=== PATIENT | female | born 1950 | race Caucasian/White ===

== ENCOUNTER → 2024-02-03 07:25 | Outpatient (ROUT) | payer MEDICARE, SELFPAY ==
[2024-02-03 08:47] LABS: Estimated Glomerular Filt Rate > 60 mL/min (>60)
== END ==
PROVIDERS: PCP Nurse Practitioner Family; Visit Provider Nurse Practitioner Family
DX: Z51.81 Encounter for therapeutic drug level monitoring (principal)
CPT/HCPCS: 36415; 82565

== ENCOUNTER → 2024-02-04 10:09 | Outpatient (CLI) | payer MEDICARE, MEDICAID, SELFPAY ==
--- NOTE | 2024-02-04 | DI.CT.S_ITS ---
PROCEDURE: CT ABDOMEN PELVIS W CON INDICATIONS: Melena, constipation TECHNIQUE: After the administration of intravenous contrast, axial sections acquired from the lung bases to the pubic symphysis. Coronal and sagittal reformats were performed. For radiation dose reduction, the following was used: automated exposure control, adjustment of mA and/or kV according to patient size. COMPARISON: [facility], CT, CT ABDOMEN PELVIS WITH CONTRAST, 12/23/2020, 14:52. FINDINGS: Image quality: Diagnostic. Lower Chest: Mild dependent atelectasis. Lipomatous hypertrophy of the intra-atrial septum. ABDOMEN: Liver: No solid mass. Gallbladder: Surgically absent. Biliary ducts: No biliary dilation. Pancreas: No ductal dilation. Spleen: Size is within normal limits. Splenule is noted. Adrenal Glands: No adrenal nodules. Kidneys and Ureters: No hydronephrosis. No solid mass. No complex renal cystic lesion which requires follow up. Stomach and Bowel: Normal colonic caliber, without significant wall thickening. Moderate burden of stool throughout the colon. Normal appendix. Peritoneum: No abnormal intraperitoneal fluid. No free air. Ventral Wall: Small fat containing umbilical hernia. Abdominal Nodes: No retroperitoneal or mesenteric adenopathy by size criteria. Vessels: Aorta and inferior vena cava are normal in size. Atherosclerotic vascular calcifications. PELVIS: Pelvic Organs: Unremarkable. Bladder: No bladder wall thickening, accounting for underdistention. Pelvic Nodes: No enlarged lymph nodes. Miscellaneous: No inguinal hernias are seen. Bones: No aggressive osseous abnormality. Degenerative changes of the spine. Diffusely decreased osseous mineralization. IMPRESSION: 1. No acute findings within the abdomen or pelvis to explain patient's symptoms. 2. Moderate burden of stool throughout the colon, correlate for constipation. Dictated by: Riley John M.D. on 02/04/2024 at 11:49 Approved by: Riley John M.D. on 02/04/2024 at 11:53
== END ==
PROVIDERS: PCP Nurse Practitioner Family; Referring Provider Nurse Practitioner Family; Visit Provider Nurse Practitioner Family
DX: K92.1 Melena (principal); K59.00 Constipation, unspecified; K42.9 Umbilical hernia without obstruction or gangrene; Z90.49 Acquired absence of other specified parts of digestive tract
CPT/HCPCS: 74177; Q9967

== ENCOUNTER 2024-03-01 08:14 | Day surgery (SDC) | payer MEDICARE, MEDICAID, SELFPAY ==
[2024-03-01] VITALS (11 sets, daily range): BP systolic 99–126; BP diastolic 52–83; PULSE 71–98; RESP 13–20; TEMP 36.2–36.6; O2SAT 88–95
--- NOTE | 2024-03-01 | PATH_ITS ---
[facility] Accession Number: [id number] No. of containers..02 Tissue . 01 Material submitted: . PART A: gastrointestinal site - ANTRUM PART B: esophagus, E-G Junction - GE JUNCTION . 01 Diagnosis: A. STOMACH, ANTRUM, BIOPSY: Gastric antral-type mucosa with reactive gastropathy. No evidence of intestinal metaplasia or dysplasia. Negative for Helicobacter pylori organisms on H/E. . B. GASTROESOPHAGEAL JUNCTION, BIOPSY: Gastric-transitional and fundic-type mucosa with green, refractile, non-polarizable material consistent with iron-pill fragments. Background with mild acute and chronic inflammation. Negative for intestinal metaplasia and dysplasia. Negative for Helicobacter pylori organisms on immunohistochemistry. No fragments of squamous mucosa present for evaluation. MRV 03/10/2024 1410 Local . 01 Electronically signed: . Coreen Sandoval MD, Pathologist NPI- [id number] . 01 Gross description: . Part A: ANTRUM: Received in formalin are 2 fragment(s) of coburn, soft tissue measuring 0.2 x 0.2 x 0.1 cm to 0.3 x 0.2 x 0.2 cm submitted entirely in 1 cassette(s) Part B: GE JUNCTION: Received in formalin are 3 fragment(s) of coburn, soft tissue measuring 0.2 x 0.2 x 0.2 cm to 0.3 x 0.3 x 0.3 cm submitted entirely in 1 cassette(s) /DEBORAH 03/04/2024 0142 Local . 01 Microscopic: . Iron stain, AB/PAS, Helicobacter pylori immunohistochemical studies are performed on block B, in order to evaluate areas of interest. There is diffuse positivity for iron, and no evidence of AB/PAS immunoreactivity or Helicobacter pylori immunoreactivity, in support of the diagnosis. . * This test was developed and its performance characteristics determined by [facility]. It has not been cleared or approved by the U.S. Food and Drug Administration. The FDA has determined that such clearance or approval is not necessary. This test is used for clinical purposes. It should not be regarded as investigational or for research. . 01 Pathologist provided ICD-10: K29.60 . 01 CPT . 104059, 235782, [id number], 076190, 545310 Specimen Comment: A courtesy copy of this report has been sent to [phone] Performed at: 01 [facility] [address] [place] [address], [place], [place] [id number] MD Ulisses Tran MD Phone: [phone]
--- NOTE | 2024-03-01 09:09 | P.OP.PRE_ITS ---
Pre-operative Note COVID-19 COVID-19 status: Not tested Interval Note History & Physical reviewed/Exam performed by Physician: Yes Changes to H&P: Yes H&P completed within 30 days and has changed as indicated here:: The patient c ontinues to have solid stool output so we will cancel the colonoscopy portion of the procedure today ASA Class (for procedural sedation): III
[2024-03-01] MEDS: FLEETS ENEMA 1 EACH PR (09:25)
--- NOTE | 2024-03-01 09:39 | SUR.OPER ---
colonoscopy cancelled due to incomplete prep
--- NOTE | 2024-03-01 09:48 | PM.OP.EGD ---
Operative Date/Time/Diagnoses Date of procedure: 03/01/24 Time of procedure: 09:48 Pre-op diagnosis: Melena Post-op diagnosis: same Procedure & Clinicians Study performed: Esophagogastroduodenoscopy Same procedure as scheduled: No (The colonoscopy was canceled because the patient had solid stool) Surgeon: Polo Dunahm Procedure Notes Procedure in detail: Surgeon: Polo Dunham MD Anesthesia: Genaro Griffiths DO A timeout was performed. A bite blocked was placed. The patient was positioned in the left lateral decubitus position. Anesthesia was administered. The endoscope was inserted through the bite block and passed through the esophagus and stomach and into the duodenum. The duodenal mucosa appeared normal. The scope was withdrawn into the duodenal bulb and no abnormalities were noted. The scope was withdrawn into the stomach. There was residual debris stomach suggesting slow transit time. There was some moderate antritis and distal gastritis and random biopsies were taken from the antrum with cold forceps. The scope was retroflexed and no significant hiatal hernia was noted. The scope was withdrawn into the esophagus and there was some inflamed tissue at the GE junction and biopsies were taken cold forceps. The remainder of the esophagus was normal. The scope was withdrawn. The patient was awakened and brought to recovery. Sedation time: 10 minutes Findings: Antritis, distal gastritis and inflamed abnormal tissue near the GE junction Post-procedure Disposition: PACU
[2024-03-01] MEDS: ALBUTEROL 2.5 MG/3 ML NEB (ADULT) INH (10:09)
[2024-03-01] MEDS: ONDANSETRON 4 MG/2 ML INJ IV (10:12)
--- NOTE | 2024-03-01 10:14 | SUR.PHASEI ---
Patient reported nausea and trouble breathing. O2 sats upper 80s to low 90s on RA. Lungs diminished. Dr. Griffiths notified and meds ordered and given.
--- NOTE | 2024-03-01 10:19 | SUR.PHASEI ---
Patient reported nausea improved but breathing has not.
--- NOTE | 2024-03-01 10:44 | SUR.PHASEI ---
Discussed patient status with Dr. Griffiths. Patient may transfer to phase II with continued monitoring.
--- NOTE | 2024-03-01 11:08 | SUR.PHASEII ---
Called report to her nurse Yola at [facility]. She states she understood. I also informed nurse that her colonoscopy was not performed due to pt still having stool.
[2024-03-01] MEDS: LACTATED RINGERS 1,000 ML 42 ML IV (11:10)
== END 2024-03-01 11:45 | disposition home or self-care (01) ==
PROVIDERS: PCP Nurse Practitioner Family; Referring Provider Surgery; Visit Provider Surgery
PROC: 0DJ08ZZ Inspection of Upper Intestinal Tract, Via Natural or Artificial Opening Endoscopic (ICD-10-PCS; CPT 43235; principal; 2024-03-01 09:30)
PROC: 0DJD8ZZ Inspection of Lower Intestinal Tract, Via Natural or Artificial Opening Endoscopic (ICD-10-PCS; CPT 45378; 2024-03-01 09:30)
DX: K92.1 Melena (principal); K29.50 Unspecified chronic gastritis without bleeding; K31.9 Disease of stomach and duodenum, unspecified
CPT/HCPCS: 43239; J2405; J2704; J7613

== ENCOUNTER 2024-03-21 15:05 | Emergency (ER) | payer MEDICARE, MEDICAID, SELFPAY ==
[2024-03-21] VITALS (13 sets, daily range): BP systolic 102–136; BP diastolic 55–84; PULSE 83–93; RESP 9–36; TEMP 36.6; O2SAT 93–97; BMI 35.4
--- NOTE | 2024-03-21 15:10 | DI.CT.S_ITS ---
PROCEDURE: CT HEAD/BRAIN WO CON INDICATIONS: fall hit head TECHNIQUE: Noncontrast 4.5 mm thick angled axial sections acquired from the foramen magnum to the vertex, with coronal and sagittal reformats. For radiation dose reduction, the following was used: automated exposure control, adjustment of mA and/or kV according to patient size. COMPARISON: None. FINDINGS: Image quality: Diagnostic. CSF spaces: Basal cisterns are patent. No extra-axial fluid collections. Ventricles are normal in size and shape. Brain: Mild parenchymal volume loss. No midline shift. No intracranial masses or hemorrhage. Collins-white matter interface is normal. Skull and face: Calvarium and visualized facial bones are intact, without suspicious lesions. Sinuses: Visualized sinuses and mastoids are clear. IMPRESSION: No acute intracranial pathology. Dictated by: Jason Croft M.D. on 03/21/2024 at 15:09 Approved by: Jason Croft M.D. on 03/21/2024 at 15:10
--- NOTE | 2024-03-21 15:12 | DI.CT.S_ITS ---
PROCEDURE: CT CERVICAL SPINE WO CON INDICATIONS: fall TECHNIQUE: Noncontrast 3 mm thick sections acquired from the skull base to the T4 level. Sagittal and coronal reformats were then constructed. For radiation dose reduction, the following was used: automated exposure control, adjustment of mA and/or kV according to patient size. COMPARISON: None. FINDINGS: Image quality: Excellent. Bones: No fractures or dislocations. Visualized superior ribs are intact. Soft tissues: Prevertebral soft tissues are normal in thickness. No paravertebral hematomas. No apical pneumothoraces. IMPRESSION: No displaced fracture or traumatic subluxation. Dictated by: Jason Croft M.D. on 03/21/2024 at 15:10 Approved by: Jason Croft M.D. on 03/21/2024 at 15:12
--- NOTE | 2024-03-21 15:16 | DI.RAD.S_ITS ---
PROCEDURE: XR CHEST 1V INDICATIONS: chest pain TECHNIQUE: One view of the chest was acquired. COMPARISON: [facility], , CHEST 2 VIEW, 04/14/2013, 13:21. FINDINGS: Surgical changes and devices: None. Lungs and pleura: Lungs are clear. No pleural effusions or pneumothorax. Mediastinum: Mediastinal contours appear normal. Heart size is normal. Bones and chest wall: No suspicious bony lesions. Overlying soft tissues appear unremarkable. IMPRESSION: No acute cardiopulmonary abnormality is seen. Dictated by: Jason Croft M.D. on 03/21/2024 at 14:59 Approved by: Jason Croft M.D. on 03/21/2024 at 15:00
[2024-03-21 15:59] LABS: INR 0.9 (0.9-1.3); Prothrombin Time 10.1 SECONDS (9.4-12.5)
[2024-03-21 16:00] LABS: Add Manual Diff / Slide Review NO; Basophils Absolute Auto 100 /uL (0-100); Basophils Percent Auto 0.4 % (0-2); Eosinophils Absolute Auto 200 /uL (0-450); Eosinophils Percent Auto 1.3 % (2-4); Hematocrit 43.1 % (36-46); Hemoglobin 14.3 g/dL (12.0-16.0); Lymphocytes Absolute Auto 1900 /uL (1100-4500); Lymphocytes Percent Auto 15.4 % (25-40); Mean Corpuscular HGB Conc 33.3 % (30-36); Mean Corpuscular Hemoglobin 33.9 PG (26-34); Mean Corpuscular Volume 101.9 fL (80-100); Monocytes Absolute Auto 800 /uL (0-900); Monocytes Percent Auto 6.9 % (3-14); Neutrophils Absolute Auto 9300 /uL (1500-7000); Platelet Count 263 X10^3/uL (150-400); Red Blood Cell Count 4.23 X10^6/uL (4.0-5.2); Red Cell Distribution Width 14.7 % (11.6-14.8); White Blood Cell Count 12.2 X10^3/uL (4.5-11.0)
[2024-03-21 16:01] LABS: PTT Partial Thromboplastin Tim 32 SECONDS (25.1-36.5)
[2024-03-21 16:02] LABS: Alanine Aminotransferase 22 IU/L (<35); Albumin 4.5 g/dL (3.5-5.0); Albumin Globulin Ratio 1.6 (1.0-2.8); Alkaline Phosphatase 82 U/L (38-126); Aspartate Aminotransferase 30 IU/L (14-36); BUN Creatinine Ratio 19.7 (6-22); Bilirubin Total 0.5 mg/dL (0.2-1.3); Blood Urea Nitrogen 14 mg/dL (7-17); Calcium 9.1 mg/dL (8.4-10.2); Carbon Dioxide 28 mmol/L (22-32); Chloride 104 mmol/L (98-107); Creatine Kinase 63 U/L (30-135); Estimated Glomerular Filt Rate > 60 mL/min (>60); Globulin 2.8 g/dL (1.7-4.1); Glucose 111 mg/dL (80-110); HEMOLYSIS 32 (0-50); Lipase 108 U/L (23-300); Potassium 3.9 mmol/L (3.4-5.1); Sodium 137 mmol/L (137-145); Total Protein 7.3 g/dL (6.3-8.2)
[2024-03-21 16:14] LABS: Troponin I < 0.012 ng/mL (0.01-0.034)
--- NOTE | 2024-03-21 16:46 | ED_ITS ---
HPI - Fall General Chief Complaint: Fall Stated Complaint: Fall Time Seen by Provider: 03/21/24 15:51 Source: EMS Mode of arrival: EMS History of Present Illness HPI Narrative: Patient is a 74-year-old female, history of asthma chronic knee problems, ambulates by walker at all times presents today with ground level fall. She reports that she has not been feeling well for about the last 3 days. She has had a cough no significant fever but today she really did not feel well. She tripped and fell. She reports that she felt a little bit dizzy in the next thing she knew she was on the ground. She did hit her head. She arrived by ambulance in a C-collar. None anticoagulation or antiplatelet medication. She denies any other injury. She does report history of some pneumonia. She feels like she might have that again she does have this cough she has had a cough for some time. Related Data Home Medications Medication Instructions Recorded Confirmed albuterol sulfate 90 mcg/actuation 0.09 mg IH BID ##0 01/15/12 03/01/24 aerosol inhaler (Proventil HFA) fluticasone propionate 220 1 puff INH Q DAY ##12 08/14/12 03/01/24 mcg/actuation HFA aerosol inhaler (Flovent HFA) azelastine 137 mcg (0.1 %) nasal 1 spray intranasal BID 02/11/24 03/01/24 spray aerosol colesevelam 625 mg tablet 625 mg PO BID 02/11/24 03/01/24 cyclobenzaprine 10 mg tablet 10 mg PO BID 02/11/24 03/01/24 duloxetine 60 mg capsule,delayed 60 mg PO BID 02/11/24 03/01/24 release hydrocodone 5 mg-acetaminophen 325 1 tab PO TID 02/11/24 03/01/24 mg tablet lubiprostone 24 mcg capsule 24 mcg PO DAILY 02/11/24 03/01/24 (Amitiza) montelukast 10 mg tablet 10 mg PO DAILY 02/11/24 03/01/24 Previous Rx's Medication Instructions Recorded clonazepam 0.5 mg tablet (Klonopin) 0.5 mg PO Q6HP #90 tabs 10/22/16 trazodone 100 mg tablet 100 - 200 mg (1 - 2 x 100 mg) PO 01/15/17 HS #30 tabs peg 3350-electrolytes 236 240 ml PO Q10M #4,000 mL 02/13/24 gram-22.74 gram-6.74 gram-5.86 gram solution (Golytely) Allergies Allergy/AdvReac Type Severity Reaction Status Date / Time imipramine [IMIPRAMINE] Allergy Severe throat Verified 03/01/24 09:09 swelling influenza virus vaccine, Allergy Severe arm and Verified 03/01/24 09:09 specific body [INFLUENZA VIRUS swelling VACC,SPECIFIC] pneumococcal vaccine Allergy Severe body Verified 03/01/24 09:09 [PNEUMOCOCCAL VACCINE] swelling eucalyptus [EUCALYPTUS] Allergy Mild Verified 03/01/24 09:09 oxycodone [OXYCODONE] AdvReac Severe panic Verified 03/01/24 09:09 feeling rasagiline [From AZILECT] AdvReac Severe suicidal Verified 03/01/24 09:09 carbidopa [CARBIDOPA] AdvReac Mild nausea & Verified 03/01/24 09:09 vomiting Sulfa (Sulfonamide AdvReac Mild n/v Verified 03/01/24 09:09 Antibiotics) [SULFA (SULFONAMIDE ANTIBIOTICS)] sulfacetamide [SULFACETAMIDE] AdvReac Mild n/v Verified 03/01/24 09:09 TOMATOES Allergy Mild N/V Uncoded 03/01/24 09:09 TORFANIL Allergy Unknown PER PT Uncoded 03/01/24 09:09 Patient History Social History Smoking Status: Current every day smoker alcohol intake: former Smoking Status: Current every day smoker Substance Use Type: does not use Exam Initial Vital Signs Initial Vital Signs: Vital Signs Temperature 97.8 F 03/21/24 15:21 Pulse Rate 91 H 03/21/24 15:21 Respiratory Rate 16 03/21/24 15:21 Blood Pressure 102/55 L 03/21/24 15:21 Pulse Oximetry 95 03/21/24 15:21 Oxygen Delivery Method Room Air 03/21/24 15:21 GENERAL: Alert pleasant elderly female no acute distress HEENT: Head atraumatic,EOMI, pupils reactive, face symmetric, moist mucous membranes NECK: C-collar in place CARDIOVASCULAR: Regular rate and rhythm without murmurs, rubs or gallops. RESPIRATORY: Breath sounds equal bilaterally, no wheezes rales or rhonchi. Nonproductive cough present but no obvious respiratory distress ABDOMEN: Soft, nontender. Normoactive bowel sounds all 4 quadrants. No guarding or rebound. EXTREMITIES: Normal range of motion, no clubbing or edema. Neurovascularly intact. Pelvis stable able to lift each leg NEUROLOGICAL: Alert and oriented x4. Pipe Organ Builder strength equal SKIN: Warm, dry, no laceration, no petechiae, no rashes or lesions. Course Orders Ordered: ED Orders 03/21/24 15:10 CT head/brain wo con Stat 03/21/24 15:12 CT cervical spine wo con Stat 03/21/24 15:16 XR chest 1V Stat EKG-12 Lead Stat 03/21/24 15:35 Complete Blood Count AUTO DIFF Stat Comprehensive Metabolic Panel Stat Lipase Stat Magnesium Stat PTT Partial Thromboplastin Lopez Stat Prothrombin Time INR Stat Troponin & CK Cardiac Panel Stat 03/21/24 15:58 Respiratory Panel (Film Array) Stat 03/21/24 18:13 UA Complete [Urinalysis and Microscopic] Stat Urine Culture Stat Discontinued Medications Aspirin (Aspirin 81 Mg Chew Tab) 324 mg PO NOW ONE Stop: 03/21/24 15:17 Last Admin: 03/21/24 15:19 Dose: Not Given Documented By: KW Vital Signs Vital signs: Vital Signs - 8 hr 03/21/24 15:21 03/21/24 16:23 03/21/24 16:30 Temperature 97.8 F Pulse Rate 91 H 83 85 Respiratory Rate 16 9 L 19 Blood Pressure 102/55 L Pulse Oximetry 95 Oxygen Delivery Method Room Air 03/21/24 16:55 03/21/24 16:55 03/21/24 17:00 Temperature Pulse Rate 88 Respiratory Rate 36 H Blood Pressure 132/65 125/63 Pulse Oximetry 96 Oxygen Delivery Method 03/21/24 17:00 03/21/24 17:30 03/21/24 17:31 Temperature Pulse Rate 86 87 86 Respiratory Rate 25 H 27 H 27 H Blood Pressure Pulse Oximetry 95 95 96 Oxygen Delivery Method 03/21/24 17:31 03/21/24 18:00 03/21/24 18:01 Temperature Pulse Rate 87 87 Respiratory Rate 32 H 29 H Blood Pressure 118/84 Pulse Oximetry 95 95 Oxygen Delivery Method 03/21/24 18:01 03/21/24 18:30 03/21/24 19:00 Temperature Pulse Rate 92 H 93 H Respiratory Rate 35 H Blood Pressure 119/76 Pulse Oximetry 93 93 Oxygen Delivery Method 03/21/24 20:05 03/21/24 20:05 03/21/24 20:07 Temperature Pulse Rate 87 89 Respiratory Rate 18 Blood Pressure 136/61 136/61 Pulse Oximetry 97 97 Oxygen Delivery Method Room Air MDM - Fall Lab Data 03/21/24 15:35 03/21/24 15:35 Labs: Lab Results 03/21/24 03/21/24 03/21/24 Range/Units 15:35 15:58 18:13 WBC 12.2 H (4.5-11.0) X10^3/uL RBC 4.23 (4.0-5.2) X10^6/uL Hgb 14.3 (12.0-16.0) g/dL Hct 43.1 (36-46) % MCV 101.9 H (80-100) fL MCH 33.9 (26-34) PG MCHC 33.3 (30-36) % RDW 14.7 (11.6-14.8) % Plt Count 263 (150-400) X10^3/uL Neut % (Auto) 76.0 H (50-75) % Lymph % (Auto) 15.4 L (25-40) % Dukes % (Auto) 6.9 (3-14) % Eos % (Auto) 1.3 L (2-4) % Baso % (Auto) 0.4 (0-2) % Neut # (Auto) 9300 H (7778-1612) /uL Lymph # (Auto) 1900 (5294-0876) /uL Dukes # (Auto) 800 (0-900) /uL Eos # (Auto) 200 (0-450) /uL Baso # (Auto) 100 (0-100) /uL PT 10.1 (9.4-12.5) SECONDS INR 0.9 (0.9-1.3) APTT 32 (25.1-36.5) SECONDS Sodium 137 (137-145) mmol/L Potassium 3.9 (3.4-5.1) mmol/L Chloride 104 (98-107) mmol/L Carbon Dioxide 28 (22-32) mmol/L BUN 14 (7-17) mg/dL Creatinine 0.71 (0.52-1.04) mg/dL Estimated GFR > 60 (>60) mL/min BUN/Creatinine Ratio 19.7 (6-22) Glucose 111 H (80-110) mg/dL Calcium 9.1 (8.4-10.2) mg/dL Magnesium 2.0 (1.6-2.3) mg/dL Total Bilirubin 0.5 (0.2-1.3) mg/dL AST 30 (14-36) IU/L ALT 22 (<35) IU/L Alkaline Phosphatase 82 (38-126) U/L Total Creatine Kinase 63 (30-135) U/L Troponin I < 0.012 (0.01-0.034) ng/mL Total Protein 7.3 (6.3-8.2) g/dL Albumin 4.5 (3.5-5.0) g/dL Globulin 2.8 (1.7-4.1) g/dL Albumin/Globulin Ratio 1.6 (1.0-2.8) Lipase 108 (23-300) U/L Urine Color Yellow Urine Appearance Clear Urine pH 6.0 (4.5-8.0) Ur Specific [place] 1.020 (1.000-1.035) Urine Protein Negative (Negative) Urine Glucose (UA) Negative (Negative) g/dL Urine Ketones Negative (NEGATIVE) Urine Occult Blood Negative (Negative) Urine Nitrate Negative (Negative) Urine Bilirubin Negative (NEGATIVE) Urine Urobilinogen 0.2 (0.2) E.U./dL Ur Leukocyte Esterase Trace H (NEGATIVE) Urine RBC None seen (0-5/HPF) Urine WBC 5-10/hpf H (0-5/HPF) Ur Squamous Epith Cells 0-1 /hpf (0-5/HPF) Urine Bacteria None seen (None) Ur Culture Indicated? Specimen cultured Vol Urine Centrifuged 10ml (spun) Chlamy pneumoniae PCR Not detected (Not Detect) Adenovirus (PCR) Not detected (Not Detect) B.parapertussis DNA PCR Not detected (Not Detecte) Coronavirus OC43 (PCR) Not detected (Not Detect) Coronavirus HKU1 (PCR) Not detected (Not Detect) Coronavirus 229E (PCR) Not detected (Not Detect) SARS-CoV-2 (PCR) Not detected (Not Detecte) Coronavirus NL63 (PCR) Not detected (Not Detect) Human Metapneumovir PCR Not detected (Not Detect) Influenza Type A (PCR) Not detected (Not Detect) Influenza Type B (PCR) Not detected (Not Detect) M. pneumoniae (PCR) Not detected (Not Detect) Parainfluenza 1 (PCR) Not detected (Not Detect) Parainfluenza 2 (PCR) Not detected (Not Detect) Parainfluenza 3 (PCR) Not detected (Not Detect) Parainfluenza 4 (PCR) Not detected (Not Detect) RSV (PCR) Not detected (Not Detect) Entero/Rhino (PCR) Not detected (Not Detect) Urine Dip Bedside Urine Glucose Negative Bedside Urine Bilirubin - Negative Bedside Urine Ketone - Negative Urine Specific [place] 1.025 Bedside Urine Occult Blood - Negative Bedside Urine pH 6.0 Bedside Urine Protein - Negative Bedside Urine Urobilinogen - Negative Bedside Urine Nitrite - Negative Bedside Urine Leukocytes - Negative Esterase Imaging Data CT scan - head: Radiologist's Impression: PROCEDURE: CT HEAD/BRAIN WO CON INDICATIONS: fall hit head TECHNIQUE: Noncontrast 4.5 mm thick angled axial sections acquired from the foramen magnum to the vertex, with coronal and sagittal reformats. For radiation dose reduction, the following was used: automated exposure control, adjustment of mA and/or kV according to patient size. COMPARISON: None. FINDINGS: Image quality: Diagnostic. CSF spaces: Basal cisterns are patent. No extra-axial fluid collections. Ventricles are normal in size and shape. Brain: Mild parenchymal volume loss. No midline shift. No intracranial masses or hemorrhage. Collins-white matter interface is normal. Skull and face: Calvarium and visualized facial bones are intact, without suspicious lesions. Sinuses: Visualized sinuses and mastoids are clear. IMPRESSION: No acute intracranial pathology. Dictated by: Jason Croft M.D. on 03/21/2024 at 15:09 CT - cervical spine: Radiologist's Impression: PROCEDURE: CT CERVICAL SPINE WO CON INDICATIONS: fall TECHNIQUE: Noncontrast 3 mm thick sections acquired from the skull base to the T4 level. Sagittal and coronal reformats were then constructed. For radiation dose reduction, the following was used: automated exposure control, adjustment of mA and/or kV according to patient size. COMPARISON: None. FINDINGS: Image quality: Excellent. Bones: No fractures or dislocations. Visualized superior ribs are intact. Soft tissues: Prevertebral soft tissues are normal in thickness. No paravertebral hematomas. No apical pneumothoraces. IMPRESSION: No displaced fracture or traumatic subluxation. Dictated by: Jason Croft M.D. on 03/21/2024 at 15:10 Chest x-ray: Radiologist's Impression: PROCEDURE: XR CHEST 1V INDICATIONS: chest pain TECHNIQUE: One view of the chest was acquired. COMPARISON: [facility], CHEST 2 VIEW, 04/14/2013, 13:21. FINDINGS: Surgical changes and devices: None. Lungs and pleura: Lungs are clear. No pleural effusions or pneumothorax. Mediastinum: Mediastinal contours appear normal. Heart size is normal. Bones and chest wall: No suspicious bony lesions. Overlying soft tissues appear unremarkable. IMPRESSION: No acute cardiopulmonary abnormality is seen. Dictated by: Jason Croft M.D. on 03/21/2024 at 14:59 ECG Data Attestation: I personally reviewed and interpreted this ECG as follows: Prior ECG tracings: available for review Interpretation: Sinus rhythm rate 92 PA interval 124 QRS [address] QTC [address] changes no priors to compare T-wave inversion noted in V2 and V3 MDM Narrative Medical decision making narrative: MDM CC: Fall Complicating co-morbidities: Asthma chronic pain Data collected from: Nursing notes EMS Medical records reviewed: Yes but minimal Differential considered: Sepsis infection intracranial hemorrhage fracture Exam documented above, pertinent findings include: Patient is awake and alert no obvious injury from her fall. Pipe Organ Builder strength is equal no laceration Lab Test results independently reviewed as above. Pertinent findings: WBC 12.2, hemoglobin 14.3, hematocrit 43.1, platelets 263, INR 0.9, PTT 32, sodium 137, potassium 3.9, chloride no 4, carbon dioxide 28, BUN 10, creatinine 0.71, glucose 111, bilirubin 0.5, AST 30, ALT 22, alk-phos 82, CPK 63, troponin negative Urinalysis negative Respiratory panel negative Independently reviewed EKG as above: No acute ischemia but T-wave inversion noted Imaging studies independently reviewed: CT head does not show any intracranial abnormalities, CT cervical spine no acute fracture, chest x-ray no pneumonia or acute abnormality Consultations: None Treatments: None Re-evaluations: Patient has no significant decline or improvement appears at baseline. Discussion: Patient 74-year-old female history of asthma presenting today with cough and generally not feeling well with the ground level fall. She has no injury from her fall. There is no evidence of sepsis or infection at this time. Her urinalysis is negative chest x-ray does not show any kind of pneumonia respiratory panel is negative. She ambulates with a walker at baseline at all times. She did require assistance to get to a bedside commode. At this time she does not meet any sort of admission criteria Requires S transport back Discharge Plan Departure Patient Disposition: Home Clinical Impression: Fall Instructions: How to Prevent Falls Activity Restrictions/Additional Instructions: *You have been diagnosed with fall *What to do: I am sorry that you do not feel well and that you have a cough. However there is no pneumonia or need for antibiotics. Please stay hydrated rest. Use walker at all times as you have been doing. *Continue to take medications as directed *Follow up with your primary care provider in 2-3 days or call [phone] *Return to ER if you should have recurrent fall weakness shortness of breath chest pain or any new, worsening or concerning symptoms Prescriptions: No Action albuterol sulfate [Proventil HFA] 90 MCG/PUFF HFA aerosol inhaler 0.09 mg IH BID Qty: 0 fluticasone propionate [Flovent HFA] 12 GM HFA aerosol inhaler 1 puff INH Q DAY Qty: 12 clonazepam [Klonopin] 0.5 MG tablet 0.5 mg PO Q6HP Qty: 90 3RF trazodone 100 MG tablet 100 - 200 mg PO HS Qty: 30 3RF peg 3350-electrolytes [Golytely] 236-22.74-6.74 -5.86 gram recon soln 240 ml PO Q10M Qty: 4000 0RF Rx Instructions: take as directed by Physician lubiprostone [Amitiza] 24 mcg capsule 24 mcg PO DAILY azelastine 137 mcg (0.1 %) aerosol,spray 1 spray intranasal BID Rx Instructions: administer into each nostril colesevelam 625 mg tablet 625 mg PO BID cyclobenzaprine 10 mg tablet 10 mg PO BID duloxetine 60 mg capsule,delayed release(DR/EC) 60 mg PO BID hydrocodone-acetaminophen 5-325 mg tablet 1 tab PO TID montelukast 10 mg tablet 10 mg PO DAILY Referrals: Peggy Alves ARNP [Primary Care Provider] - Stand Alone Forms: Patient Portal/API
[2024-03-21 17:00] LABS: Adenovirus Not Detected (Not Detect); B. parapertussis Not Detected (Not Detecte); Bordetella pertussis Not Detected (Not Detect); Chlamydophila pneumoniae Not Detected (Not Detect); Coronavirus 229E Not Detected (Not Detect); Coronavirus HKU1 Not Detected (Not Detect); Coronavirus NL 63 Not Detected (Not Detect); Coronavirus OC43 Not Detected (Not Detect); Human Metapneumovirus Not Detected (Not Detect); Human Rhinovirus/Enterovirus Not Detected (Not Detect); Influenza A Not Detected (Not Detect); Influenza B Not Detected (Not Detect); Mycoplasma pneumoniae Not Detected (Not Detect); Parainfluenza Virus 1 Not Detected (Not Detect); Parainfluenza Virus 2 Not Detected (Not Detect); Parainfluenza Virus 3 Not Detected (Not Detect); Parainfluenza Virus 4 Not Detected (Not Detect); Respiratory Syncytial Virus Not Detected (Not Detect); SARS- CoV-2 Not Detected (Not Detecte)
[2024-03-21 18:22] LABS: Appearance Urine UA CLEAR; Bilirubin Urine UA NEGATIVE (NEGATIVE); Color Urine UA YELLOW; Glucose Urine UA NEGATIVE (Negative); Ketones Urine UA NEGATIVE (NEGATIVE); Leukocyte Esterase Urine UA TRACE (NEGATIVE); Nitrite Urine UA NEGATIVE (Negative); Occult Blood Urine UA NEGATIVE (Negative); Protein Urine UA NEGATIVE (Negative); Urobilinogen Urine UA 0.2 E.U./dL (0.2)
[2024-03-21 18:57] LABS: Bacteria Urine None Seen; Culture Indicated Urine Specimen Cultured; RBC Urine None Seen (0-5/HPF); Squamous Epithelial Cell Urine 0-1 /HPF (0-5/HPF); Urine Volume 10mL (spun); WBC Urine 5-10/HPF (0-5/HPF)
== END 2024-03-21 20:20 | disposition home or self-care (01) ==
PROVIDERS: Emergency Provider Emergency Medicine; PCP Nurse Practitioner Family
DX: S09.90XA Unspecified injury of head, initial encounter (principal); R05.9 Cough, unspecified; R07.9 Chest pain, unspecified; W01.0XXA Fall on same level from slipping, tripping and stumbling without subsequent striking against object, initial encounter; Z79.899 Other long term (current) drug therapy; Z20.822 Contact with and (suspected) exposure to COVID-19
CPT/HCPCS: 36415; 51701; 70450; 71045; 72125; 80053; 81001; 81003; 82550; 83690; 83735; 84484; 85025; 85610; 85730; 87086; 87633; 93005; 99283; 99284

== ENCOUNTER → 2024-03-24 16:24 | Outpatient (CLI) | payer MEDICARE, MEDICAID, SELFPAY ==
--- NOTE | 2024-03-24 17:02 | DI.RAD.S_ITS ---
PROCEDURE: XR CHEST 2V INDICATIONS: Increased dyspnea, cough TECHNIQUE: 2 views of the chest were acquired. COMPARISON: [facility], CT, CT ABDOMEN PELVIS W CON, 02/04/2024, 11:27. [facility], CR, XR CHEST 1V, 03/21/2024, 15:21. [facility], CR, CHEST 2 VIEW, 04/14/2013, 13:21. FINDINGS: Surgical changes and devices: None. Lungs and pleura: No consolidation. No pleural effusions or pneumothorax. Mediastinum: Mediastinal contours are normal. Heart size is within normal limits accounting for technique. Bones and chest wall: No suspicious bony abnormalities. Soft tissues appear unremarkable. IMPRESSION: No acute cardiopulmonary abnormality is seen. Dictated by: Leander Nettles M.D. on 03/24/2024 at 17:29 Approved by: Leander Nettles M.D. on 03/24/2024 at 17:30
[2024-03-24 17:20] LABS: Influenza A - CEPHEID Flu A NEGATIVE (NEGATIVE); Influenza B - CEPHEID Flu B NEGATIVE (NEGATIVE); Respiratory Syncytial Virus Negative (Negative)
[2024-03-24 17:21] LABS: COVID-19 CEPHEID 4-PLEX PCR Negative (Negative)
== END ==
PROVIDERS: PCP Nurse Practitioner Family; Referring Provider Physician Assistant Surgical; Visit Provider Physician Assistant Surgical
DX: R05.9 Cough, unspecified (principal); R06.00 Dyspnea, unspecified
CPT/HCPCS: 0241U; 71046

== ENCOUNTER → 2024-04-05 13:50 | Outpatient (CLI) | payer MEDICARE, MEDICAID, SELFPAY ==
--- NOTE | 2024-04-05 13:55 | DI.RAD.S_ITS ---
PROCEDURE: XR CHEST 2V INDICATIONS: COUGH TECHNIQUE: 2 views of the chest were acquired. COMPARISON: [facility], CR, XR CHEST 2V, 03/24/2024, 17:03. FINDINGS: Surgical changes and devices: None. Lungs and pleura: Lungs are clear. No pleural effusions or pneumothorax. Mediastinum: Mediastinal contours are normal. Heart size is normal. Bones and chest wall: No suspicious bony abnormalities. Soft tissues appear unremarkable. IMPRESSION: No acute cardiopulmonary abnormality is seen. Dictated by: Antonino Costello M.D. on 04/05/2024 at 15:32 Approved by: Antonino Costello M.D. on 04/05/2024 at 15:32
== END ==
PROVIDERS: Visit Provider Registered Nurse
DX: J44.9 Chronic obstructive pulmonary disease, unspecified (principal)
CPT/HCPCS: 71046

== ENCOUNTER → 2024-05-25 09:52 | Outpatient (CLI) | payer MEDICARE, MEDICAID, SELFPAY ==
[2024-05-25 13:22] LABS: BUN Creatinine Ratio 18.1 (6-22); Blood Urea Nitrogen 13 mg/dL (7-17); Calcium 8.9 mg/dL (8.4-10.2); Carbon Dioxide 28 mmol/L (22-32); Chloride 106 mmol/L (98-107); Estimated Glomerular Filt Rate > 60 mL/min (>60); Glucose 97 mg/dL (80-110); HEMOLYSIS < 15 (0-50); Potassium 4.7 mmol/L (3.4-5.1); Sodium 138 mmol/L (137-145)
== END ==
PROVIDERS: PCP Nurse Practitioner Family; Referring Provider Internal Medicine; Visit Provider Internal Medicine
DX: Z79.899 Other long term (current) drug therapy (principal)
CPT/HCPCS: 36415; 80048

== ENCOUNTER → 2024-06-19 15:20 | Outpatient (ROUT) | payer MEDICARE, MEDICAID, SELFPAY ==
[2024-06-19 15:35] LABS: Appearance Urine UA CLOUDY; Bilirubin Urine UA NEGATIVE (NEGATIVE); Color Urine UA YELLOW; Glucose Urine UA NEGATIVE (Negative); Ketones Urine UA NEGATIVE (NEGATIVE); Leukocyte Esterase Urine UA 3+ (NEGATIVE); Nitrite Urine UA POSITIVE (Negative); Occult Blood Urine UA 1+ (Negative); Protein Urine UA TRACE (Negative); Specific Gravity Urine UA 1.025 (1.000-1.035); Urobilinogen Urine UA 0.2 E.U./dL (0.2)
[2024-06-19 15:40] LABS: pH Urine UA 5.5 (4.5-8.0)
[2024-06-19 15:45] LABS: Bacteria Urine Many (>30); Culture Indicated Urine Specimen Cultured; RBC Urine None Seen (0-5/HPF); Squamous Epithelial Cell Urine None Seen (0-5/HPF); Urine Volume 10mL (spun); WBC Urine 30-100/HPF (0-5/HPF)
== END ==
PROVIDERS: PCP Nurse Practitioner Family; Visit Provider Registered Nurse
DX: R30.0 Dysuria (principal); R82.998 Other abnormal findings in urine
CPT/HCPCS: 81001; 87077; 87086; 87186

== ENCOUNTER 2024-07-08 07:31 | Inpatient (IN) | payer MEDICARE, MEDICAID, SELFPAY ==
[2024-07-08] VITALS (13 sets, daily range): BP systolic 114–139; BP diastolic 59–66; PULSE 67–82; RESP 11–18; TEMP 36.4–36.7; O2SAT 88–97; BMI 34.4; BMI 33.1
--- NOTE | 2024-07-08 07:44 | ED.FALL ---
HPI - Fall General Chief Complaint: Fall Stated Complaint: Found down, L hip pain Time Seen by Provider: 07/08/24 07:40 History of Present Illness HPI Narrative: 74-year-old female current resident at [facility], says that she has been falling recent days, found down at her facility residence, arrived by EMS, complaining of left-sided hip pain. Does not believe that she struck her head. Does not know if she blacked out. She denies use of blood thinner medications. She seems somewhat confused, slow speech per EMS, unclear baseline. Related Data Home Medications Medication Instructions Recorded Confirmed albuterol sulfate 90 mcg/actuation 0.09 mg IH BID ##0 01/15/12 07/08/24 aerosol inhaler (Proventil HFA) fluticasone propionate 220 1 puff INH Q DAY ##12 08/14/12 07/08/24 mcg/actuation HFA aerosol inhaler (Flovent HFA) colesevelam 625 mg tablet 625 mg PO BID 02/11/24 07/08/24 cyclobenzaprine 10 mg tablet 10 mg PO BID 02/11/24 07/08/24 duloxetine 60 mg capsule,delayed 60 mg PO BID 02/11/24 07/08/24 release lubiprostone 24 mcg capsule 24 mcg PO DAILY 02/11/24 07/08/24 (Amitiza) montelukast 10 mg tablet 10 mg PO DAILY 02/11/24 07/08/24 benzonatate 200 mg capsule 200 mg PO BID PRN Cough 07/08/24 07/08/24 cholecalciferol (vitamin D3) 125 125 mcg PO DAILY 07/08/24 07/08/24 mcg (5,000 unit) tablet (Vitamin D3) clonazepam 0.5 mg tablet 0.5 mg PO BEDTIME 07/08/24 07/08/24 cyclosporine 0.05 % eye drops in a 0.05 drp EYE-BOTH BID 07/08/24 07/08/24 dropperette (Restasis) ferrous sulfate 325 mg (65 mg 325 mg PO DAILY 07/08/24 07/08/24 iron) tablet gabapentin 600 mg tablet 600 mg PO TID 07/08/24 07/08/24 ipratropium bromide 21 mcg (0.03 0.06 spray intranasal TID 07/08/24 07/08/24 %) nasal spray morphine 15 mg immediate release 15 mg PO BID 07/08/24 07/08/24 tablet tiotropium bromide 2.5 2 inh inhalation QAM 07/08/24 07/08/24 mcg/actuation mist for inhalation (Spiriva Respimat) triamcinolone acetonide 0.1 % 0.5 applic topical BID 07/08/24 07/08/24 topical ointment Previous Rx's Medication Instructions Recorded clonazepam 0.5 mg tablet (Klonopin) 0.5 mg PO Q6HP #90 tabs 10/22/16 trazodone 100 mg tablet 100 - 200 mg (1 - 2 x 100 mg) PO 01/15/17 HS #30 tabs Allergies Allergy/AdvReac Type Severity Reaction Status Date / Time imipramine [IMIPRAMINE] Allergy Severe throat Verified 03/24/24 16:17 swelling influenza virus vaccine, Allergy Severe arm and Verified 03/24/24 16:17 specific body [INFLUENZA VIRUS swelling VACC,SPECIFIC] pneumococcal vaccine Allergy Severe body Verified 03/24/24 16:17 [PNEUMOCOCCAL VACCINE] swelling eucalyptus [EUCALYPTUS] Allergy Mild Verified 03/24/24 16:17 oxycodone [OXYCODONE] AdvReac Severe panic Verified 03/24/24 16:17 feeling rasagiline [From AZILECT] AdvReac Severe suicidal Verified 03/24/24 16:17 carbidopa [CARBIDOPA] AdvReac Mild nausea & Verified 03/24/24 16:17 vomiting Sulfa (Sulfonamide AdvReac Mild n/v Verified 03/24/24 16:17 Antibiotics) [SULFA (SULFONAMIDE ANTIBIOTICS)] sulfacetamide [SULFACETAMIDE] AdvReac Mild n/v Verified 03/24/24 16:17 TOMATOES Allergy Mild N/V Uncoded 03/24/24 16:17 TORFANIL Allergy Unknown PER PT Uncoded 03/24/24 16:17 Review of Systems Review of Systems Narrative: see HPI Patient History Social History household members: other Smoking Status: Current every day smoker alcohol intake: former Smoking Status: Current every day smoker Substance Use Type: does not use Exam Narrative Exam Narrative: GENERAL: Well-developed patient, in mild distress. HEAD: Atraumatic. Normocephalic. EYES: Pupils equal round and reactive. Extraocular motions intact. No scleral icterus. No injection or drainage. ENT: Nose without bleeding, purulent drainage. Throat without erythema, tonsillar hypertrophy or exudate. Airway patent. NECK: Trachea midline. Non tender CARDIOVASCULAR: Regular rate and rhythm without murmurs, gallops, or rubs. RESPIRATORY: Clear to auscultation. Breath sounds equal bilaterally. No wheezes, rales, or rhonchi. GASTROINTESTINAL: Abdomen soft, non-tender, nondistended. EXTREMITIES: No edema or joint tenderness. BACK: Nontender without deformity or crepitance. No flank tenderness. NEURO: AOx3. Nonfocal gross motor exam, limited right thigh flexion due to hip pain SKIN: No rash or erythema of visible areas Initial Vital Signs Initial Vital Signs: Vital Signs Pulse Rate 82 07/08/24 07:33 Course Orders Ordered: Acetaminophen (Acetaminophen 325 Mg Tablet) 650 mg PO Q6H PRN PRN Reason: Fever/Mild Pain (1-3) Al Hydrox/Mg Hydrox/Simethicone (Mag Hydrox/Alum/Simeth 30 Ml Udc) 30 ml PO Q6HR PRN PRN Reason: Dyspepsia Budesonide (Budesonide 0.5 Mg/2 Ml Neb) 0.5 mg INH RTBID [facility] Clonazepam (Clonazepam 0.5 Mg Tablet) 0.5 mg PO BEDTIME PERRY Colesevelam HCl (Colesevelam 625 Mg Tablet) 625 mg PO BID [facility] Docusate Sodium (Docusate 100 Mg Capsule) 100 mg PO BID [facility] Duloxetine HCl (Duloxetine 30 Mg Capsule) 60 mg PO BID [facility] Ferrous Sulfate (Ferrous Sulfate 325 Mg Tablet) 325 mg PO DAILY [facility] Gabapentin (Gabapentin 600 Mg Tablet) 600 mg PO TID [facility] Last Admin: 07/08/24 15:32 Dose: 600 mg Documented By: YARA Heparin Sodium (Porcine) (Heparin 5,000 Unit/Ml Vial) 5,000 unit SUBCUT BID [facility] Ipratropium [place] (Ipratropium 0.06% Nasal 15 Ml) 1 spray NASAL TID [facility] Last Admin: 07/08/24 18:01 Dose: Not Given Documented By: TIERNEY Ipratropium [place] (Ipratropium 0.5 Mg/2.5 Ml Neb) 0.5 mg INH Q4HRWA [facility] Last Admin: 07/08/24 18:26 Dose: Not Given Documented By: BIANKA Montelukast Sodium (Montelukast 10 Mg Tablet) 10 mg PO DAILY [facility] Morphine Sulfate (Morphine Ir 15 Mg Tablet) 15 mg PO BID [facility] Naloxone HCl (Naloxone 0.4 Mg/Ml Vial) 0.2 mg IV Q2MIN PRN PRN Reason: Opiate Reversal Nicotine (Nicotine 7 Mg Patch) 7 mg TOP DAILY [facility] Last Admin: 07/08/24 15:32 Dose: 7 mg Documented By: YARA Non-Formulary Medication (Cyclosporine [Restasis]) 0.05 drop EYE-BOTH BID [facility] Non-Formulary Medication (Lubiprostone [Amitiza]) 24 mcg PO DAILY [facility] Ondansetron HCl (Ondansetron 4 Mg/2 Ml Inj) 4 mg IV Q8HR PRN PRN Reason: Nausea And Vomiting Discontinued Medications Sodium Chloride (Normal Saline 0.9%) 1,000 mls @ 150 mls/hr IV CONT PERRY Last Infusion: 07/08/24 11:08 Dose: 0 mls/hr Documented By: Admin: 07/08/24 08:14 Dose: 150 mls/hr Documented By: CARMELINA Ceftriaxone Sodium 1,000 mg/ (Sodium Chloride) 100 mls @ 200 mls/hr IV NOW ONE Stop: 07/08/24 09:01 Last Infusion: 07/08/24 09:55 Dose: Infused Documented By: Admin: 07/08/24 09:23 Dose: 200 mls/hr Documented By: CARMELINA Vital Signs Vital signs: Vital Signs - 8 hr 07/08/24 07:35 Temperature 97.5 F L Pulse Rate 82 Respiratory Rate 16 Blood Pressure 139/66 Pulse Oximetry 88 L Oxygen Delivery Method Room Air MDM - Fall Lab Data Attestation: I reviewed the patient's lab results. 07/08/24 07:39 07/08/24 07:39 Labs: Lab Results 07/08/24 07/08/24 07/08/24 Range/Units 07:39 07:58 08:46 WBC 13.5 H (4.5-11.0) X10^3/uL RBC 4.14 (4.0-5.2) X10^6/uL Hgb 14.2 (12.0-16.0) g/dL Hct 42.2 (36-46) % MCV 102.0 H (80-100) fL MCH 34.3 H (26-34) PG MCHC 33.7 (30-36) % RDW 13.7 (11.6-14.8) % Plt Count 241 (150-400) X10^3/uL Neut % (Auto) 83.5 H (50-75) % Lymph % (Auto) 9.3 L (25-40) % [place] % (Auto) 6.7 (3-14) % Eos % (Auto) 0.3 L (2-4) % Baso % (Auto) 0.2 (0-2) % Neut # (Auto) 08972 H (4719-1002) /uL Lymph # (Auto) 1300 (0488-4201) /uL [place] # (Auto) 900 (0-900) /uL Eos # (Auto) 0 (0-450) /uL Baso # (Auto) 0 (0-100) /uL Sodium 133 L (137-145) mmol/L Potassium 4.2 (3.4-5.1) mmol/L Chloride 102 (98-107) mmol/L Carbon Dioxide 27 (22-32) mmol/L BUN 14 (7-17) mg/dL Creatinine 0.80 (0.52-1.04) mg/dL Estimated GFR > 60 (>60) mL/min BUN/Creatinine Ratio 17.5 (6-22) Glucose 114 H (80-110) mg/dL Calcium 9.3 (8.4-10.2) mg/dL Total Bilirubin 0.9 (0.2-1.3) mg/dL AST 58 H (14-36) IU/L ALT 29 (<35) IU/L Alkaline Phosphatase 98 (38-126) U/L Total Creatine Kinase 486 H (30-135) U/L Troponin I < 0.012 (0.01-0.034) ng/mL NT-Pro-B Natriuret Pep 245 H (<125) pg/mL Total Protein 6.8 (6.3-8.2) g/dL Albumin 4.1 (3.5-5.0) g/dL Globulin 2.7 (1.7-4.1) g/dL Albumin/Globulin Ratio 1.5 (1.0-2.8) Lipase 89 (23-300) U/L Urine Color Yellow Urine Appearance Sl cloudy Urine pH 5.0 (4.5-8.0) Ur Specific [place] 1.025 (1.000-1.035) Urine Protein 1+ H (Negative) Urine Glucose (UA) Negative (Negative) g/dL Urine Ketones 1+ H (NEGATIVE) Urine Occult Blood 2+ H (Negative) Urine Nitrate Negative (Negative) Urine Bilirubin Negative (NEGATIVE) Urine Urobilinogen 0.2 (0.2) E.U./dL Ur Leukocyte Esterase 2+ H (NEGATIVE) Urine RBC 10-30/hpf H (0-5/HPF) Urine WBC 30-100/hpf H (0-5/HPF) Ur Squamous Epith Cells 1-5 /hpf (0-5/HPF) Urine Bacteria Many (>30) H (None) Ur Culture Indicated? Specimen cultured Vol Urine Centrifuged 10ml (spun) SARS-CoV-2 (PCR) Negative (Negative) Influenza A (RT-PCR) Flu a negative (NEGATIVE) Influenza B (RT-PCR) Flu b negative (NEGATIVE) RSV (PCR) Negative (Negative) Urine Dip Bedside Urine Glucose Negative Bedside Urine Bilirubin - Negative Bedside Urine Ketone +/- 5 Urine Specific [place] 1.025 Bedside Urine Occult Blood +++ Bedside Urine pH 5.5 Bedside Urine Protein ++ 100 Bedside Urine Urobilinogen - Negative Bedside Urine Nitrite - Negative Bedside Urine Leukocytes +++ 500 Esterase Imaging Data Extremity x-ray #1: Radiologist's Impression: [place] [address] XRay Report Signed Patient: Suze Desai MR#: [id number] : 1950 Acct:[id number] Age/Sex: 74 / F Date of Service: 07/08/24 Loc: ED Accession Number: [id number] Procedure: XR hip w pel if done LT 2V Ordering Provider: Hugo Xiong MD PROCEDURE: XR HIP W PEL IF DONE LT 2V INDICATIONS: GLF, left hip pain TECHNIQUE: AP pelvis with lateral view(s) of the left hip(s). COMPARISON: None. FINDINGS: Bones: No fractures or dislocations. Pelvic ring appears intact. Mild left hip degenerative change. No suspicious bony lesions. Soft tissues: The visualized bowel gas pattern is normal. No suspicious soft tissue calcifications. IMPRESSION: Degenerative change. No evidence acute bony abnormality. Dictated by: Antonino Costello M.D. on 07/08/2024 at 8:26 Approved by: Antonino Costello M.D. on 07/08/2024 at 8:28 Chest x-ray: Radiologist's Impression: [address] [address] XRay Report Signed Patient: Suze Desai MR#: [id number] : 1950 Acct:[id number] Age/Sex: 74 / F Date of Service: 07/08/24 Loc: ED Accession Number: [id number] Procedure: XR chest 1V Ordering Provider: Hugo Xiong MD PROCEDURE: XR CHEST 1V INDICATIONS: chest pain TECHNIQUE: One view of the chest was acquired. COMPARISON: [facility], CR, XR CHEST 2V, 04/05/2024, 14:06. FINDINGS: Surgical changes and devices: None. Lungs and pleura: Pulmonary venous congestion. No candie pulmonary edema. No pleural effusions or pneumothorax. Mediastinum: Mediastinal contours appear normal. Heart size is normal. Bones and chest wall: No suspicious bony lesions. Overlying soft tissues appear unremarkable. IMPRESSION: Pulmonary venous congestion. No candie pulmonary edema or focal pulmonary infiltrate. Dictated by: Antonino Costello M.D. on 07/08/2024 at 8:28 Approved by: Antonino Costello M.D. on 07/08/2024 at 8:29 CT - cervical spine: Radiologist's Impression: [address] [address] [address] Scan Report Signed Patient: Suze Desai MR#: [id number] : 1950 Acct:[id number] Age/Sex: 74 / F Date of Service: 07/08/24 Loc: ED Accession Number: [id number] Procedure: CT cervical spine wo con Ordering Provider: Hugo Xiong MD PROCEDURE: CT CERVICAL SPINE WO CON INDICATIONS: found down, confused TECHNIQUE: Noncontrast 3 mm thick sections acquired from the skull base to the T4 level. Sagittal and coronal reformats were then constructed. For radiation dose reduction, the following was used: automated exposure control, adjustment of mA and/or kV according to patient size. COMPARISON: [facility], CT, CT CERVICAL SPINE WO CON, 03/21/2024, 15:33. FINDINGS: Image quality: Excellent. Bones: No fractures or dislocations. Visualized superior ribs are intact. Soft tissues: Prevertebral soft tissues are normal in thickness. No paravertebral hematomas. No apical pneumothoraces. IMPRESSION: 1. No acute cervical fracture or dislocation. Dictated by: Antonino Costello M.D. on 07/08/2024 at 9:08 Approved by: Antonino Costello M.D. on 07/08/2024 at 9:08 [facility] Narrative Medical decision making narrative: 74-year-old female found down at assisted care facility residence, recent falls, left hip pain, arrived by EMS. Seemed confused, unclear baseline. Afebrile, sirs screen negative. No gross limb length discrepancy. Some tenderness left anterior and lateral left hip. CT head, cervical spine, chest, abdomen, pelvis. X-ray left hip series. Labs pending including EKG, troponin, CBC, CMP, PT/INR, urinalysis. Chest x-ray possible venous congestion, no infiltrates or effusions, see radiology report. CT head no acute changes, see radiology report. CT cervical spine shows DJD changes, see radiology report. Still awaiting report CT chest abdomen and pelvis. Urinalysis shows positive nitrite, inflammatory cells, bacteria, does not appear contaminated. Urine culture requested. Blood cultures added. IV ceftriaxone for UTI coverage. CT chest abdomen pelvis shows no acute cardiopulmonary process, abdomen and pelvis imaging no fractures mentioned, possible cystitis changes. See radiology report Confusion and recent falls, urinary tract infection, consider admission for UTI, also new hypoxia of unclear etiology, patient agreeable to admission, will consult hospitalist [id number], case discussed with hospitalist Dr. Zavala, requests consultation with [facility] nursing about frequency of falls, also requests to check room-air sat [employer] called to [facility], confirm patient had fallen 2 days ago, has fallen in the past. Dr. Zavala accepts patient for admission to observation Critical Care Time Critical Care Time Critical Care Time: Yes Total Critical Care Time: 35 Attestation: The high probability of a clinically significant, sudden or life threatening deterioration of the [cardiopulmonary, cerebrovascular, abdominopelvic, genitourinary] system(s) required my full and direct attention, intervention and personal management. The aggregate critical care time was [35] minutes. This time is in addition to time spent performing reported procedures but includes the following: [x] Data Review and interpretation [x] Patient assessment and monitoring of vital signs [x] Documentation [x] Medication orders and management Discharge Plan Departure Patient Disposition: Admitted as Observation Clinical Impression: Falls, Urinary tract infection, Hypoxia, Strain of left hip Admit Date/Time: 07/08/24 10:28 Admit Provider: Delbert Zavala
--- NOTE | 2024-07-08 07:57 | DI.RAD.S_ITS ---
PROCEDURE: XR CHEST 1V INDICATIONS: chest pain TECHNIQUE: One view of the chest was acquired. COMPARISON: [facility], CR, XR CHEST 2V, 04/05/2024, 14:06. FINDINGS: Surgical changes and devices: None. Lungs and pleura: Pulmonary venous congestion. No candie pulmonary edema. No pleural effusions or pneumothorax. Mediastinum: Mediastinal contours appear normal. Heart size is normal. Bones and chest wall: No suspicious bony lesions. Overlying soft tissues appear unremarkable. IMPRESSION: Pulmonary venous congestion. No candie pulmonary edema or focal pulmonary infiltrate. Dictated by: Antonino Costello M.D. on 07/08/2024 at 8:28 Approved by: Antonino Costello M.D. on 07/08/2024 at 8:29
--- NOTE | 2024-07-08 07:58 | DI.CT.S_ITS ---
PROCEDURE: CT HEAD/BRAIN WO CON INDICATIONS: found down, confused TECHNIQUE: Noncontrast 4.5 mm thick angled axial sections acquired from the foramen magnum to the vertex, with coronal and sagittal reformats. For radiation dose reduction, the following was used: automated exposure control, adjustment of mA and/or kV according to patient size. COMPARISON: [facility], CT, CT HEAD/BRAIN WO CON, 03/21/2024, 15:33. FINDINGS: Image quality: Diagnostic. CSF spaces: Basal cisterns are patent. No extra-axial fluid collections. The ventricles are symmetric in size and shape. Brain: No intracranial bleeds or masses. There is cerebral volume loss for age, with resultant ventricular and sulcal prominence. There are periventricular and deep white matter chronic small vessel ischemic changes. There is intracranial internal carotid artery atherosclerosis. Skull and face: Calvarium and visualized facial bones appear intact, without suspicious lesions. Sinuses: Visualized sinuses and mastoids are clear. IMPRESSION: No acute intracranial pathology. Dictated by: Antonino Costello M.D. on 07/08/2024 at 9:07 Approved by: Antonino Costello M.D. on 07/08/2024 at 9:07
--- NOTE | 2024-07-08 07:58 | DI.CT.S_ITS ---
PROCEDURE: CT CERVICAL SPINE WO CON INDICATIONS: found down, confused TECHNIQUE: Noncontrast 3 mm thick sections acquired from the skull base to the T4 level. Sagittal and coronal reformats were then constructed. For radiation dose reduction, the following was used: automated exposure control, adjustment of mA and/or kV according to patient size. COMPARISON: [facility], CT, CT CERVICAL SPINE WO CON, 03/21/2024, 15:33. FINDINGS: Image quality: Excellent. Bones: No fractures or dislocations. Visualized superior ribs are intact. Soft tissues: Prevertebral soft tissues are normal in thickness. No paravertebral hematomas. No apical pneumothoraces. IMPRESSION: 1. No acute cervical fracture or dislocation. Dictated by: Antonino Costello M.D. on 07/08/2024 at 9:08 Approved by: Antonino Costello M.D. on 07/08/2024 at 9:08
--- NOTE | 2024-07-08 07:59 | DI.CT.S_ITS ---
PROCEDURE: CT CHEST ABD PEL W CON INDICATIONS: found down, confused TECHNIQUE: After the administration of intravenous contrast, 5 mm thick sections acquired from the lung apices to the symphysis. 5 mm coronal and sagittal reformats were performed, with additional 7 mm MIP reformats through the lungs. For radiation dose reduction, the following was used: automated exposure control, adjustment of mA and/or kV according to patient size. COMPARISON: [facility], CT, CT LOW DOSE LUNG CA SCREENING, 11/23/2022, 12:59. FINDINGS: Image quality: Excellent. CHEST: Lower Neck: No enlarged lymph nodes. Thyroid: No thyroid nodules which require sonographic follow up, per consensus guidelines. Axillae: No enlarged lymph nodes. Chest Wall: Unremarkable. Lungs and Pleura: No pneumothorax or pleural effusions. No consolidation or suspicious nodules. Heart: Heart size is normal. Prominent lipomatous hypertrophy of the interatrial septum incidentally noted. No pericardial effusion. Thoracic Vessels: The aorta and pulmonary arteries demonstrate normal size. Mediastinum and [place]: No enlarged lymph nodes. Esophagus: No wall thickening. No hiatal hernia. ABDOMEN: Liver: No solid mass. [id number] diffuse hepatic steatosis. Probable flash filling of an incidental right lobe hemangioma. Gallbladder: Surgically absent Biliary ducts: No biliary dilation. Pancreas: No ductal dilation. Spleen: Size is within normal limits. Adrenal Glands: No adrenal nodules. Kidneys and Ureters: No hydronephrosis. No solid mass. No complex renal cystic lesion which requires follow up. Stomach and Bowel: Normal colonic caliber, without significant wall thickening. Peritoneum: No abnormal intraperitoneal fluid. No free air. Ventral Wall: No significant ventral hernia. Abdominal Nodes: No retroperitoneal or mesenteric adenopathy by size criteria. Vessels: Aorta and inferior vena cava are normal in size. PELVIS: Pelvic Organs: Unremarkable. Bladder: Mild bladder wall thickening. Pelvic Nodes: No enlarged lymph nodes. Miscellaneous: No inguinal hernias are seen. Bones: No aggressive osseous abnormality. IMPRESSION: 1. Mild bladder wall thickening. Recommend correlation for presence or absence of cystitis. 2. [id number] diffuse hepatic steatosis. 3. Remote cholecystectomy. 4. No acute process noted in the chest, abdomen, and pelvis. Dictated by: Antonino Costello M.D. on 07/08/2024 at 9:32 Approved by: Antonino Costello M.D. on 07/08/2024 at 9:36
[2024-07-08 08:09] LABS: Add Manual Diff / Slide Review NO; Basophils Absolute Auto 0 /uL (0-100); Basophils Percent Auto 0.2 % (0-2); Eosinophils Absolute Auto 0 /uL (0-450); Eosinophils Percent Auto 0.3 % (2-4); Hematocrit 42.2 % (36-46); Hemoglobin 14.2 g/dL (12.0-16.0); Lymphocytes Absolute Auto 1300 /uL (1100-4500); Lymphocytes Percent Auto 9.3 % (25-40); Mean Corpuscular HGB Conc 33.7 % (30-36); Mean Corpuscular Hemoglobin 34.3 PG (26-34); Monocytes Absolute Auto 900 /uL (0-900); Monocytes Percent Auto 6.7 % (3-14); Neutrophils Absolute Auto 11200 /uL (1500-7000); Neutrophils Percent Auto 83.5 % (50-75); Platelet Count 241 X10^3/uL (150-400); Red Blood Cell Count 4.14 X10^6/uL (4.0-5.2); Red Cell Distribution Width 13.7 % (11.6-14.8); White Blood Cell Count 13.5 X10^3/uL (4.5-11.0)
[2024-07-08 08:11] LABS: Alanine Aminotransferase 29 IU/L (<35); Albumin 4.1 g/dL (3.5-5.0); Albumin Globulin Ratio 1.5 (1.0-2.8); Alkaline Phosphatase 98 U/L (38-126); Aspartate Aminotransferase 58 IU/L (14-36); BUN Creatinine Ratio 17.5 (6-22); Bilirubin Total 0.9 mg/dL (0.2-1.3); Blood Urea Nitrogen 14 mg/dL (7-17); Calcium 9.3 mg/dL (8.4-10.2); Carbon Dioxide 27 mmol/L (22-32); Chloride 102 mmol/L (98-107); Creatine Kinase 486 U/L (30-135); Estimated Glomerular Filt Rate > 60 mL/min (>60); Globulin 2.7 g/dL (1.7-4.1); Glucose 114 mg/dL (80-110); HEMOLYSIS 34 (0-50); Lipase 89 U/L (23-300); Potassium 4.2 mmol/L (3.4-5.1); Sodium 133 mmol/L (137-145); Total Protein 6.8 g/dL (6.3-8.2)
[2024-07-08] MEDS: SODIUM CHLORIDE 0.9% 1,000 ML 150 ML IV (08:14)
--- NOTE | 2024-07-08 08:21 | PC.NURSE ---
[facility] [employer] note: applied non-skids socks to pt. feet and pt. was able to ambulate to the bathroom with the assistance of a walker.
[2024-07-08 08:22] LABS: Troponin I < 0.012 ng/mL (0.01-0.034)
[2024-07-08 08:38] LABS: Appearance Urine UA SL CLOUDY; Bilirubin Urine UA NEGATIVE (NEGATIVE); Color Urine UA YELLOW; Glucose Urine UA NEGATIVE (Negative); Ketones Urine UA 1+ (NEGATIVE); Leukocyte Esterase Urine UA 2+ (NEGATIVE); Nitrite Urine UA NEGATIVE (Negative); Occult Blood Urine UA 2+ (Negative); Protein Urine UA 1+ (Negative); Specific Gravity Urine UA 1.025 (1.000-1.035); Urobilinogen Urine UA 0.2 E.U./dL (0.2)
[2024-07-08 08:56] LABS: Bacteria Urine Many (>30); Culture Indicated Urine Specimen Cultured; RBC Urine 10-30/HPF (0-5/HPF); Squamous Epithelial Cell Urine 1-5 /HPF (0-5/HPF); Urine Volume 10mL (spun); WBC Urine 30-100/HPF (0-5/HPF)
[2024-07-08] MEDS: cefTRIAXone 1,000 MG in SODIUM CHLORIDE 0.9% 100 ML 200 MG IV (09:23)
[2024-07-08 09:59] LABS: Influenza A - CEPHEID Flu A NEGATIVE (NEGATIVE); Influenza B - CEPHEID Flu B NEGATIVE (NEGATIVE); Respiratory Syncytial Virus Negative (Negative)
[2024-07-08 10:00] LABS: COVID-19 CEPHEID 4-PLEX PCR Negative (Negative)
[2024-07-08 10:49] LABS: NT-proBNP (BNP-Adult 18+) 245 pg/mL (<125)
--- NOTE | 2024-07-08 10:55 | PM.HP.1 ---
History of Present Illness History of Present Illness Date Patient Seen: 07/08/24 Time Patient Seen: 13:00 Chief complaint: Found down, L hip pain Narrative: The patient presented to the emergency department from her assisted living facility after having a fall. This is 1 of 2 falls that she has had over the last week or so. She was evaluated in the emergency department for hip pain and had extensive imaging including x-rays of the hip, chest, and CTs of the head and neck as well as chest and abdomen. No injuries were discovered. She did note foul-smelling urine and dysuria recently but denies a history of recurrent urinary tract infection. Her urine was consistent with a UTI with bacteria. She was started on IV fluids and antibiotics in the emergency department. She denies flank pain, or recent fevers. She does use a walker to get around. The emergency department did call her assisted living and they did confirm increased falls recently, as well as a more chronic history of falls. The patient will be placed in the hospital on observation and treated for urinary tract infection and her gait stability and strength will be evaluated by physical and occupational therapy. She denies any specific areas of pain, no nausea. She would have diarrhea about a month ago but this resolved. No hematuria. [facility] Social History household members: other Smoking Status: Current every day smoker alcohol intake: former Meds Home Medications and Allergies Home Medications Medication Instructions Recorded Confirmed Type albuterol sulfate 90 mcg/actuation 0.09 mg IH BID ##0 01/15/12 07/08/24 History aerosol inhaler (Proventil HFA) fluticasone propionate 220 1 puff INH Q DAY ##12 08/14/12 07/08/24 History mcg/actuation HFA aerosol inhaler (Flovent HFA) clonazepam 0.5 mg tablet (Klonopin) 0.5 mg PO Q6HP #90 tabs 10/22/16 07/08/24 Rx trazodone 100 mg tablet 100 - 200 mg (1 - 2 x 100 mg) PO 01/15/17 07/08/24 Rx HS #30 tabs colesevelam 625 mg tablet 625 mg PO BID 02/11/24 07/08/24 History cyclobenzaprine 10 mg tablet 10 mg PO BID 02/11/24 07/08/24 History duloxetine 60 mg capsule,delayed 60 mg PO BID 02/11/24 07/08/24 History release lubiprostone 24 mcg capsule 24 mcg PO DAILY 02/11/24 07/08/24 History (Amitiza) montelukast 10 mg tablet 10 mg PO DAILY 02/11/24 07/08/24 History benzonatate 200 mg capsule 200 mg PO BID PRN Cough 07/08/24 07/08/24 History cholecalciferol (vitamin D3) 125 125 mcg PO DAILY 07/08/24 07/08/24 History mcg (5,000 unit) tablet (Vitamin D3) clonazepam 0.5 mg tablet 0.5 mg PO BEDTIME 07/08/24 07/08/24 History cyclosporine 0.05 % eye drops in a 0.05 drp EYE-BOTH BID 07/08/24 07/08/24 History dropperette (Restasis) ferrous sulfate 325 mg (65 mg 325 mg PO DAILY 07/08/24 07/08/24 History iron) tablet gabapentin 600 mg tablet 600 mg PO TID 07/08/24 07/08/24 History ipratropium bromide 21 mcg (0.03 0.06 spray intranasal TID 07/08/24 07/08/24 History %) nasal spray morphine 15 mg immediate release 15 mg PO BID 07/08/24 07/08/24 History tablet tiotropium bromide 2.5 2 inh inhalation QAM 07/08/24 07/08/24 History mcg/actuation mist for inhalation (Spiriva Respimat) triamcinolone acetonide 0.1 % 0.5 applic topical BID 07/08/24 07/08/24 History topical ointment Allergies Allergy/AdvReac Type Severity Reaction Status Date / Time imipramine [IMIPRAMINE] Allergy Severe throat Verified 03/24/24 16:17 swelling influenza virus vaccine, Allergy Severe arm and Verified 03/24/24 16:17 specific body [INFLUENZA VIRUS swelling VACC,SPECIFIC] pneumococcal vaccine Allergy Severe body Verified 03/24/24 16:17 [PNEUMOCOCCAL VACCINE] swelling eucalyptus [EUCALYPTUS] Allergy Mild Verified 03/24/24 16:17 oxycodone [OXYCODONE] AdvReac Severe panic Verified 03/24/24 16:17 feeling rasagiline [From AZILECT] AdvReac Severe suicidal Verified 03/24/24 16:17 carbidopa [CARBIDOPA] AdvReac Mild nausea & Verified 03/24/24 16:17 vomiting Sulfa (Sulfonamide AdvReac Mild n/v Verified 03/24/24 16:17 Antibiotics) [SULFA (SULFONAMIDE ANTIBIOTICS)] sulfacetamide [SULFACETAMIDE] AdvReac Mild n/v Verified 03/24/24 16:17 TOMATOES Allergy Mild N/V Uncoded 03/24/24 16:17 TORFANIL Allergy Unknown PER PT Uncoded 03/24/24 16:17 Review of Systems Review of Systems Narrative: All else reviewed and otherwise unremarkable except as noted in the history and physical. Exam Vital Signs (past 8 hours): - 07/08/24 07:33 07/08/24 07:34 07/08/24 07:34 Temperature Pulse Rate 82 81 Respiratory Rate Blood Pressure 139/66 Pulse Oximetry 92 Oxygen Delivery Method Oxygen Flow Rate 07/08/24 07:35 07/08/24 08:07 07/08/24 08:12 Temperature 97.5 F L Pulse Rate 82 80 Respiratory Rate 16 Blood Pressure 139/66 136/64 Pulse Oximetry 88 L 92 Oxygen Delivery Method Room Air Oxygen Flow Rate 07/08/24 08:12 07/08/24 08:38 07/08/24 08:39 Temperature Pulse Rate 78 77 78 Respiratory Rate Blood Pressure Pulse Oximetry 89 L 88 L 89 L Oxygen Delivery Method Nasal Cannula Oxygen Flow Rate 2 07/08/24 08:39 07/08/24 09:00 07/08/24 09:30 Temperature Pulse Rate 75 73 Respiratory Rate 12 11 L Blood Pressure 115/62 Pulse Oximetry 97 96 Oxygen Delivery Method Nasal Cannula Oxygen Flow Rate 2 07/08/24 10:00 07/08/24 10:30 Temperature Pulse Rate 71 69 Respiratory Rate 13 12 Blood Pressure Pulse Oximetry 96 97 Oxygen Delivery Method Oxygen Flow Rate Oxygen Delivery Method Nasal Cannula Oxygen Flow Rate 2 Narrative Exam Narrative: NAD, alert and oriented, fluent speech, calm. Normocephalic skull, EOMI, anicteric sclera, symmetric pupils. Oropharynx unremarkable, no droop. Neck supple, midline trachea, no adenopathy. Lungs clear, normal rate and effort. Heart regular, no murmur gallop or rub. Abdomen is soft, non distended and non tender. Extremities are free of edema. Skin is free of rash or lesions. Joints are not swollen or deformed. Judgment appears to be normal. Objective Imaging Multiple studies:: Radiologist's impression: Chest abdomen and pelvis CT: 1. Mild bladder wall thickening. Recommend correlation for presence or absence of cystitis. 2. [id number] diffuse hepatic steatosis. 3. Remote cholecystectomy. 4. No acute process noted in the chest, abdomen, and pelvis. Head CT: No acute intracranial pathology. Cervical spine: 1. No acute cervical fracture or dislocation. Chest x-ray: Pulmonary venous congestion. No candie pulmonary edema or focal pulmonary infiltrate. Hip x-ray: Degenerative change. No evidence acute bony abnormality. Labs 07/08/24 07:39 07/08/24 07:39 Labs: Laboratory Results - last 24 hr 07/08/24 07/08/24 07/08/24 07:39 07:58 08:46 WBC 13.5 H RBC 4.14 Hgb 14.2 Hct 42.2 MCV 102.0 H MCH 34.3 H MCHC 33.7 RDW 13.7 Plt Count 241 Neut % (Auto) 83.5 H Lymph % (Auto) 9.3 L [place] % (Auto) 6.7 Eos % (Auto) 0.3 L Baso % (Auto) 0.2 Neut # (Auto) 19975 H Lymph # (Auto) 1300 [place] # (Auto) 900 Eos # (Auto) 0 Baso # (Auto) 0 Sodium 133 L Potassium 4.2 Chloride 102 Carbon Dioxide 27 BUN 14 Creatinine 0.80 Estimated GFR > 60 BUN/Creatinine Ratio 17.5 Glucose 114 H Calcium 9.3 Total Bilirubin 0.9 AST 58 H ALT 29 Alkaline Phosphatase 98 Total Creatine Kinase 486 H Troponin I < 0.012 NT-Pro-B Natriuret Pep 245 H Total Protein 6.8 Albumin 4.1 Globulin 2.7 Albumin/Globulin Ratio 1.5 Lipase 89 Urine Color Yellow Urine Appearance Sl cloudy Urine pH 5.0 Ur Specific [place] 1.025 Urine Protein 1+ H Urine Glucose (UA) Negative Urine Ketones 1+ H Urine Occult Blood 2+ H Urine Nitrate Negative Urine Bilirubin Negative Urine Urobilinogen 0.2 Ur Leukocyte Esterase 2+ H Urine RBC 10-30/hpf H Urine WBC 30-100/hpf H Ur Squamous Epith Cells 1-5 /hpf Urine Bacteria Many (>30) H Ur Culture Indicated? Specimen cultured Vol Urine Centrifuged 10ml (spun) SARS-CoV-2 (PCR) Negative Influenza A (RT-PCR) Flu a negative Influenza B (RT-PCR) Flu b negative RSV (PCR) Negative Assessment & Plan Assessment & Plan narrative: 1. Urinary tract infection, present on admission and active. 2. Acute on chronic falls, with possible escalation and frequency of falls in the last week. Present on admission and active. 3. Anxiety and PTSD, present on admission and stable. PLAN: -IV antibiotics, ceftriaxone and follow urine culture. -IV fluids -physical therapy and occupational therapy evaluations for gait stability and general strength. The patient shares that she was DNR status. Her sister lives in 1 as she, and is proxy decision maker. She was admitted to observation services, anticipate a 1 midnight hospital encounter. ANGELI: 07/09. Time-Based Coding :: 40 min spent with patient and on the chart (including review of chart, obtaining history, exam, reviewing outside data, placing orders, documenting exam and treatment plan, and counseling patient) on 07/08/2024. Quality MIPS - Admit I confirm the patient?s Advance Care Plan is present, Code status is documented, Surrogate decision maker is in patient?s record [If Yes, STOP here]: Yes MIPS - Meds 'Current medications' to include all prescriptions, [id number] products, herbals, cannabis/cannabidiol products, and vitamin/mineral/dietary (nutritional) supplements. I have utilized all available resources to obtain, update, or review the patient?s current medications. [If Yes, STOP here]: Yes
--- NOTE | 2024-07-08 13:27 | PT.IIE ---
Physical Therapy Inpatient Evaluation/Re-Eval M1 PT/OT-IP Prior Functional Status Start: 07/08/24 12:56 Freq: NEEDED Status: Active Protocol: Document 07/08/24 12:56 MB (Rec: 07/08/24 13:27 MB [id number]) Medical Review Prior Functional Status Medical History Reviewed Yes Communication Unsure baseline diet and communication, pt presents with lethargy, confusion and is hypoverbal on assessment date Mobility and Gait Pt reports that she mobilizes with her 4WRW at [place] and she has had multiple falls. She is unable to state if she feels imbalance and she mentions something about the alex there. When asked if she has been light-headed, she states she has. Activities of Daily Living and IADL's Pt states that she has a room to herself, a regular bed and that she walks down to the accessible BR and does bathing I. Social History Household Members other Living Arrangements Assisted Living Number of Floors (Floors) One Floor Number of Stairs To Enter/Railing? Accessible/ramped entrance Home Equipment Four Wheel Walker,Grab Bars Near Toilet Additional Social History Comment Not working, accessible BRs at [place] [facility] M2 PT-IP Current Condition Start: 07/08/24 12:56 Freq: NEEDED Status: Active Protocol: Document 07/08/24 12:56 MB (Rec: 07/08/24 13:27 MB [id number]) Physical Therapy Current Condition Current Condition Evaluation Date 07/08/24 Treatment Diagnosis Falls M3 PT-IP Subjective Start: 07/08/24 12:56 Freq: NEEDED Status: Active Protocol: Document 07/08/24 12:56 MB (Rec: 07/08/24 13:27 MB [id number]) Subjective Physical Therapy Visit Type Type Initial Evaluation Visit Start Time 12:56 Visit Stop Time 13:10 Number of SLIP BRIDGE OPERATOR Visits 0 Physical Therapy Visit Comments Patient Comments Pt is hypoverbal and presents with lethargy during assessment today. Pt does not report pain but states she is sore all over from many falls. M4 PT-IP Mobility and Gait Start: 07/08/24 12:56 Freq: NEEDED Status: Active Protocol: Document 07/08/24 12:56 MB (Rec: 07/08/24 13:27 MB [id number]) PT-Bed Mobility Assessment Rolling Level of Assist Contact Guard Assistance Supine to Sit Supine to Sit Contact Guard Assistance,1 Person Assistance,Head of Bed Elevated,Bedrails Sit to Supine Sit to Supine Contact Guard Assistance,1 Person Assistance,Bedrails Scooting Scooting to Edge of Bed Contact Guard Assistance Scooting Up and Down in Bed Contact Guard Assistance PT-Transfer Assessment Sit to and From Stand Sit to and from Stand Minimal Assistance,1 Person Assistance,Use of Upper Extremities Equipment Transfer Assistive Device Gait Belt,Front Wheeled Walker Orthotic/Prosthetic Devices or Brace: No Transfers Transfer Destination Bed Transfer Technique Left side step Transfer Ability Level of Assist Minimal Assistance,1 Person Assistance,Use of Upper Extremities Comments Mobility Comments Pt has fingernail portuguese on and her fingers are cold. 2L O2 is donned and machine is off for reading pulse ox and it does not read when turned on. Orthostatic assessment with BP and HR in right UE: supine 116/56, 70; standing and standing 1' increases to 130s systolic and pt is not orthostatic. PT returns to room after assessment to get standing readings off machine and they have erased. Gait Assessment Gait Gait Assistance Required: Minimum Assistance Distance (Feet) 1 Able to Maintain Weight Bearing Status Yes During Gait Assistive Devices Assistive Device Gait Belt,Front Wheeled Walker Orthotic/Prosthetic Devices or Brace: No Gait Deviations General Gait Pattern Antalgic,Decreased Stride Length,Decreased Feet Clearance,Flexed Trunk,Step-to Gait,Wide Based Gait Factors Limiting Gait Function Factors Limiting Gait Function Decreased Activity Tolerance, Difficulty Following Directions,Incoordination,Poor Balance,Poor Safety Awareness Comments Gait Comments Pt does not tolerate further gait this afternoon as PT had hoped to assess gait quality to determine any reason for falls, pt is only able to side step to the left to HOB this p.m. d/t lethargy PT-Balance Assessment Sitting Balance and Reactions Static Sitting Balance Ability Fair Dynamic Sitting Balance Ability Fair Standing Balance and Reactions Static Standing Balance Ability Fair Dynamic Standing Balance Ability Fair Device Used RW M5 PT-IP Objective Assessments Start: 07/08/24 12:56 Freq: NEEDED Status: Active Protocol: Document 07/08/24 12:56 MB (Rec: 07/08/24 13:27 MB [id number]) Orientation Orientation/Cognition Level of Alertness Lethargic Orientation Name,Age,Birthday,Place, Situation Safety Awareness Decreased Safety Awareness Comments Pt is not a good historian about baseline but states she is getting PT at [place] and doing what sounds like heel raises. She seems concerned about alex when PT asks why she might be falling. She cannot answer if she feels imbalanced. Pt states month as 2021 and when PT ed that the year is 2023 and asks pt month again, she states, 2021. Gross Range of Motion Upper Extremity ROM Assessment Within Functional Limits Impairments Pt does not fully participate with ROM or MMT Lower Extremity ROM Assessment Within Functional Limits Strength Lower Extremity Strength Ankle B DF and great toe extension 5 /5 in supine Comments Strength Comments Pt c/o pain with MMT DF and toes and does not participate with further MMT Coordination Assessment Assessment Coordination Comments Pt cannot follow commands for coordination testing this afternoon Sensation Assessment Comments Sensation Comments Pt does not follow sensory commands Muscle Tone Muscle Tone WNL Yes M6 PT-IP Treatment Start: 07/08/24 12:56 Freq: NEEDED Status: Active Protocol: Document 07/08/24 12:56 MB (Rec: 07/08/24 13:27 MB [id number]) Physical Therapy Treatment Education Education Provided Safety M7 PT-IP Assessment and Plan Start: 07/08/24 12:56 Freq: NEEDED Status: Active Protocol: Document 07/08/24 12:56 MB (Rec: 07/08/24 13:27 MB [id number]) PT Summary Assessment and Plan Potential Rehabilitation Potential Fair Status of Condition at Evaluation Evolving Summary Impairments Pain,Strength,Balance, Coordination,Cognition,Bed Mobility,Transfers,Gait, Activity Tolerance Progress Towards Goals Slow Progress due to Activity Tolerance Assessment Summary Pt adm from [place] with falls . She reports all over soreness. Pt is lethargic today and she cannot report why she might be falling at [place]. She makes verbalizations about the alex. Orthostatics are negative. Pt will benefit from further sensation, coordination and balance and gait assessment from PT when she is more alert and oriented . Goals Bed Mobility Goal Independent Transfer Goal Independent,Front Wheeled Walker,Four Wheeled Walker Gait Goal Independent,Front Wheel Walker ,Four Wheel Walker Gait Distance 100 Days to Meet Goals 3 Frequency of Treatment Frequency Of Treatment Once a Day Treatment Plan Physical Therapy Treatment Plan Bed Mobility Training,Transfer Training,Gait Training, Therapeutic Exercise,Balance Retraining,Discharge Planning, Hot or Cold Pack,Neuromuscular Re-ed,Coordination Retraining ,Manual Therapy Other Recommendations and Next Treatment Sensation, coordination and Focus gait assessments, increase mobility Weight Bearing Status Allowed Weight Bearing Amount (enter % No WB restrictions or #) (%) Recommendations To Nursing Amount of Assist Needed 1 Person Assist Discharge Recommendations PT Discharge Recommendations Home vs SNF Transportation Needs at Discharge Private Vehicle
--- NOTE | 2024-07-08 14:11 | PC.NURSE ---
Pt arrived in 216 via stretcher. She was able to ambulate to bathroom with 1 person assistance using a FWW. Pt oriented to room, and how to use call light, TV control and bed control. Pt in bed with bed alarm activated due to recent history of falls.
[2024-07-08] MEDS: GABAPENTIN 600 MG TABLET PO ×2 (15:32→21:01)
[2024-07-08] MEDS: NICOTINE 7 MG PATCH TOP (15:32)
--- NOTE | 2024-07-08 15:49 | OT.IPNOTE ---
Pt asleep and to check on the pt tomorrow.
[2024-07-08] MEDS: BUDESONIDE 0.5 MG/2 ML NEB INH (21:00)
[2024-07-08] MEDS: DOCUSATE 100 MG CAPSULE PO (21:02)
[2024-07-08] MEDS: MORPHINE IR 15 MG TABLET PO (21:02)
[2024-07-08] MEDS: clonazePAM 0.5 MG TABLET PO (21:02)
[2024-07-08] MEDS: DULOXETINE 30 MG CAPSULE 60 MG PO (21:02)
[2024-07-08] MEDS: HEPARIN 5,000 UNIT/ML VIAL 5000 UNIT SUBCUT (21:03)
[2024-07-08] MEDS: IPRATROPIUM 0.5 MG/2.5 ML NEB INH (21:09)
[2024-07-09 06:05] LABS: Add Manual Diff / Slide Review NO; Basophils Absolute Auto 0 /uL (0-100); Basophils Percent Auto 0.4 % (0-2); Eosinophils Absolute Auto 200 /uL (0-450); Eosinophils Percent Auto 3.3 % (2-4); Hematocrit 36.4 % (36-46); Hemoglobin 12.1 g/dL (12.0-16.0); Lymphocytes Absolute Auto 1800 /uL (1100-4500); Lymphocytes Percent Auto 28.3 % (25-40); Mean Corpuscular HGB Conc 33.1 % (30-36); Mean Corpuscular Volume 102.7 fL (80-100); Monocytes Absolute Auto 600 /uL (0-900); Monocytes Percent Auto 8.7 % (3-14); Neutrophils Absolute Auto 3800 /uL (1500-7000); Neutrophils Percent Auto 59.3 % (50-75); Platelet Count 200 X10^3/uL (150-400); Red Blood Cell Count 3.55 X10^6/uL (4.0-5.2); Red Cell Distribution Width 13.7 % (11.6-14.8); White Blood Cell Count 6.4 X10^3/uL (4.5-11.0)
[2024-07-09 06:34] LABS: BUN Creatinine Ratio 16.9 (6-22); Blood Urea Nitrogen 11 mg/dL (7-17); Calcium 8.3 mg/dL (8.4-10.2); Carbon Dioxide 31 mmol/L (22-32); Chloride 104 mmol/L (98-107); Estimated Glomerular Filt Rate > 60 mL/min (>60); Glucose 89 mg/dL (80-110); HEMOLYSIS < 15 (0-50); Potassium 3.4 mmol/L (3.4-5.1); Sodium 136 mmol/L (137-145)
[2024-07-09 07:00] VITALS: BP 102/47; PULSE 72; RESP 16; TEMP 36.2; O2SAT 99; BMI 33.1
--- NOTE | 2024-07-09 07:58 | P.PN_ITS ---
Subjective Subjective Interval history: The patient presented to the emergency department from her assisted living facility after having a fall. This is 1 of 2 falls that she has had over the last week or so. She was evaluated in the emergency department for hip pain and had extensive imaging including x-rays of the hip, chest, and CTs of the head and neck as well as chest and abdomen. No injuries were discovered. She did note foul-smelling urine and dysuria recently but denies a history of recurrent urinary tract infection. Her urine was consistent with a UTI with bacteria. She was started on IV fluids and antibiotics in the emergency department. She denies flank pain, or recent fevers. She does use a walker to get around. The emergency department did call her assisted living and they did confirm increased falls recently, as well as a more chronic history of falls. The patient will be placed in the hospital on observation and treated for urinary tract infection and her gait stability and strength will be evaluated by physical and occupational therapy. S: She feels a little better today, she was still quite weak. She has a lot of shoulder and right elbow pain. She has a hard time lifting her right arm up at the shoulder due to pain and some weakness. She has no memory of falling or hurting her shoulder. No pain, or dyspnea. No nausea. Exam Vital Signs (past 8 hours): Oxygen Delivery Method Nasal Cannula Oxygen Flow Rate 2 Narrative Exam Narrative: NAD, alert and oriented. Fluent speech. Lungs are clear, normal rate and effort. Heart is regular, no murmur gallop or rub. Abdomen is soft, non distended. Extremities are free of edema. She was difficulty lifting her right arm at the shoulder. Objective Imaging Multiple studies:: Radiologist's impression: Chest abdomen and pelvis CT: 1. Mild bladder wall thickening. Recommend correlation for presence or absence of cystitis. 2. [id number] diffuse hepatic steatosis. 3. Remote cholecystectomy. 4. No acute process noted in the chest, abdomen, and pelvis. Head CT: No acute intracranial pathology. Cervical spine: 1. No acute cervical fracture or dislocation. Chest x-ray: Pulmonary venous congestion. No candie pulmonary edema or focal pulmonary infiltrate. Hip x-ray: Degenerative change. No evidence acute bony abnormality. Right shoulder x-ray: No acute bony abnormality. Right elbow x-ray: No acute bony abnormality or significant joint effusion. Labs 07/09/24 05:55 07/09/24 05:55 Labs: Laboratory Results - last 24 hr 07/08/24 07/08/24 07/08/24 07:39 07:58 08:46 WBC 13.5 H RBC 4.14 Hgb 14.2 Hct 42.2 MCV 102.0 H MCH 34.3 H MCHC 33.7 RDW 13.7 Plt Count 241 Neut % (Auto) 83.5 H Lymph % (Auto) 9.3 L [place] % (Auto) 6.7 Eos % (Auto) 0.3 L Baso % (Auto) 0.2 Neut # (Auto) 05132 H Lymph # (Auto) 1300 [place] # (Auto) 900 Eos # (Auto) 0 Baso # (Auto) 0 Sodium 133 L Potassium 4.2 Chloride 102 Carbon Dioxide 27 BUN 14 Creatinine 0.80 Estimated GFR > 60 BUN/Creatinine Ratio 17.5 Glucose 114 H Calcium 9.3 Total Bilirubin 0.9 AST 58 H ALT 29 Alkaline Phosphatase 98 Total Creatine Kinase 486 H Troponin I < 0.012 NT-Pro-B Natriuret Pep 245 H Total Protein 6.8 Albumin 4.1 Globulin 2.7 Albumin/Globulin Ratio 1.5 Lipase 89 Urine Color Yellow Urine Appearance Sl cloudy Urine pH 5.0 Ur Specific [place] 1.025 Urine Protein 1+ H Urine Glucose (UA) Negative Urine Ketones 1+ H Urine Occult Blood 2+ H Urine Nitrate Negative Urine Bilirubin Negative Urine Urobilinogen 0.2 Ur Leukocyte Esterase 2+ H Urine RBC 10-30/hpf H Urine WBC 30-100/hpf H Ur Squamous Epith Cells 1-5 /hpf Urine Bacteria Many (>30) H Ur Culture Indicated? Specimen cultured Vol Urine Centrifuged 10ml (spun) SARS-CoV-2 (PCR) Negative Influenza A (RT-PCR) Flu a negative Influenza B (RT-PCR) Flu b negative RSV (PCR) Negative 07/09/24 05:55 WBC 6.4 D RBC 3.55 L Hgb 12.1 Hct 36.4 MCV 102.7 H MCH 34.0 MCHC 33.1 RDW 13.7 Plt Count 200 Neut % (Auto) 59.3 D Lymph % (Auto) 28.3 [place] % (Auto) 8.7 Eos % (Auto) 3.3 Baso % (Auto) 0.4 Neut # (Auto) 3800 Lymph # (Auto) 1800 [place] # (Auto) 600 Eos # (Auto) 200 Baso # (Auto) 0 Sodium 136 L Potassium 3.4 Chloride 104 Carbon Dioxide 31 BUN 11 Creatinine 0.65 Estimated GFR > 60 BUN/Creatinine Ratio 16.9 Glucose 89 Calcium 8.3 L Total Bilirubin AST ALT Alkaline Phosphatase Total Creatine Kinase Troponin I NT-Pro-B Natriuret Pep Total Protein Albumin Globulin Albumin/Globulin Ratio Lipase Urine Color Urine Appearance Urine pH Ur Specific [place] Urine Protein Urine Glucose (UA) Urine Ketones Urine Occult Blood Urine Nitrate Urine Bilirubin Urine Urobilinogen Ur Leukocyte Esterase Urine RBC Urine WBC Ur Squamous Epith Cells Urine Bacteria Ur Culture Indicated? Vol Urine Centrifuged SARS-CoV-2 (PCR) Influenza A (RT-PCR) Influenza B (RT-PCR) RSV (PCR) FOR[facility]LY [facility], [facility] Social History household members: other Smoking Status: Current every day smoker alcohol intake: former Assessment & Plan Assessment & Plan narrative: 1. Urinary tract infection, present on admission and active. 2. Acute on chronic falls, with possible escalation and frequency of falls in the last week. Present on admission and active. 3. Anxiety and PTSD, present on admission and stable. 4. 1/2 positive blood cultures (GPC + possible contaminant), new and active. 5. Right shoulder and elbow pain, present on admission and active. X-rays of the shoulder and elbow today are negative for fracture. PLAN: -IV antibiotics, Ceftriaxone and follow urine culture. -IV fluids -monitor blood cultures and urine culture. -physical therapy and occupational therapy evaluations for gait stability and general strength. CODE STATUS: The patient shares that she was DNR status. Her sister lives in [place], and is proxy decision maker. She requires a 2nd midnight of care, will support inpatient status. ANGELI: 07/10. Time-Based Coding :: 20 min spent with patient and on the chart (including review of chart, obtaining history, exam, reviewing outside data, placing orders, documenting exam and treatment plan, and counseling patient) on 07/09. Quality VTE Deep Vein Thrombosis/Pulmonary Embolism Present on Admission: No
[2024-07-09 08:08] LABS: Acinetobacter calcoa-baumannii Not Detected (Not Detect); Bacteroides fragilis Not Detected (Not Detect); Candida albicans Not Detected (Not Detect); Candida auris Not Detected (Not Detect); Candida glabrata Not Detected (Not Detect); Candida krusei Not Detected (Not Detect); Candida parapsilosis Not Detected (Not Detect); Candida tropicalis Not Detected (Not Detect); Cryptococcus neoformans/gatti Not Detected (Not Detect); Enterobacter cloacae complex Not Detected (Not Detect); Enterobacterales Not Detected (Not Detect); Enterococcus faecalis Not Detected (Not Detect); Enterococcus faecium Not Detected (Not Detect); Haemophilus influenzae Not Detected (Not Detect); Klebsiella aerogenes Not Detected (Not Detect); Listeria monocytogenes Not Detected (Not Detect); Neisseria meningitidis Not Detected (Not Detect); Proteus species Not Detected (Not Detect); Pseudomonas aeruginosa Not Detected (Not Detect); Salmonella species Not Detected (Not Detect); Serratia marcescens Not Detected (Not Detect); Staphylococcus epidermidis Detected (Not Detect); Staphylococcus lugdunensis Not Detected (Not Detect); Staphylococcus species Detected (Not Detect); Stenotrophomonas maltophilia Not Detected (Not Detect); Streptococcus agalactiae (Gr B Not Detected (Not Detect); Streptococcus pneumonia Not Detected (Not Detect); Streptococcus pyogenes (Gr A) Not Detected (Not Detect); Streptococcus species Not Detected (Not Detect); mecA/C Resistance Not Detected (Not Detect)
[2024-07-09] MEDS: MORPHINE IR 15 MG TABLET PO ×2 (09:08→20:27)
[2024-07-09] MEDS: NICOTINE 7 MG PATCH TOP (09:08)
[2024-07-09] MEDS: HEPARIN 5,000 UNIT/ML VIAL 5000 UNIT SUBCUT ×2 (09:09→20:27)
[2024-07-09] MEDS: MONTELUKAST 10 MG TABLET PO (09:10)
[2024-07-09] MEDS: POTASSIUM CHLORIDE 20 MEQ TAB 40 MEQ PO (09:10)
[2024-07-09] MEDS: DOCUSATE 100 MG CAPSULE PO ×2 (09:10→20:27)
[2024-07-09] MEDS: FERROUS SULFATE 325 MG TABLET PO (09:11)
[2024-07-09] MEDS: GABAPENTIN 600 MG TABLET PO ×3 (09:11→20:28)
[2024-07-09] MEDS: DULOXETINE 30 MG CAPSULE 60 MG PO ×2 (09:11→20:28)
[2024-07-09] MEDS: COLESEVELAM 625 MG TABLET PO ×2 (09:11→20:31)
[2024-07-09] MEDS: IPRATROPIUM 0.06% NASAL 15 ML 1 SPRAY NASAL (09:12)
[2024-07-09] MEDS: IPRATROPIUM 0.5 MG/2.5 ML NEB INH (09:42)
[2024-07-09 09:43] VITALS: PULSE 77; RESP 16; O2SAT 92
[2024-07-09] MEDS: BUDESONIDE 0.5 MG/2 ML NEB INH (09:43)
--- NOTE | 2024-07-09 11:25 | OT.IP.EVAL ---
Current Diagnoses Urinary tract infection, site not specified (07/08/24) Occupational Therapy Inpatient Evaluation/Re-Eval M1 PT/OT-IP Prior Functional Status Start: 07/08/24 12:56 Freq: NEEDED Status: Active Protocol: Document 07/09/24 11:39 [facility] (Rec: 07/09/24 12:05 [facility] [id number]) Medical Review Prior Functional Status Medical History Reviewed Yes Communication Mobility and Gait Pt reports that she mobilizes with her 4WRW at [place] and she has had multiple falls. She is unable to state if she feels imbalance and she mentions something about the alex there. When asked if she has been light-headed, she states she has. Activities of Daily Living and IADL's Pt states that she has a room to herself, a regular bed and that she walks down to the accessible BR and does bathing I. Social History Household Members other Living Arrangements Assisted Living Number of Floors (Floors) One Floor Number of Stairs To Enter/Railing? Accessible/ramped entrance Home Environment Walk in Shower Home Equipment Four Wheel Walker,Shower Seat with Backrest,Hand Held Shower ,Grab Bars Near Toilet Additional Social History Comment Not working, accessible BRs at [facility] M2 OT-IP Current Condition Start: 07/09/24 11:39 Freq: Status: Active Protocol: Document 07/09/24 11:39 [facility] (Rec: 07/09/24 12:05 [facility] [id number]) Occupational Therapy Current Condition Current Condition Evaluation Date 07/09/24 Treatment Diagnosis Left hip and RUE pain, UTI M3 OT- IP Subjective and Pain Start: 07/09/24 11:39 Freq: Status: Active Protocol: Document 07/09/24 11:39 [facility] (Rec: 07/09/24 12:05 [facility] [id number]) OT- Subjective Occupational Therapy Visit Type Type Initial Evaluation Visit Start Time 10:34 Visit Stop Time 11:25 Occupational Therapy Visit Comments Patient Comments Pt agreed to get up to use the bathroom. Patient/Caregiver Goals TO go home and continue her home health therapy. OT Pain Assessment Location Right Elbow Intensity 5 Scale Used Numeric (0 - 10) M4 OT- IP ADL's Start: 07/09/24 11:39 Freq: Status: Active Protocol: Document 07/09/24 11:39 [facility] (Rec: 07/09/24 12:05 [facility] [id number]) OT ADL-Grooming General Evaluation Grooming Ability Standby Assistance OT ADL-Oral Care Comments Oral Care Comments Pt did not want to perform. OT ADL-Dressing General Eval Lower Body Dressing Ability Minimal Assistance,Moderate Assistance Areas Needing Assistance Underpants/Brief,Socks Comments OT Dressing Comments Educated to yuliet her RLE first due to pain and use of histologist technologist to assist for ease. Pt will benefit from more practice. Able to go over sock aid with pt as well. OT ADL-Toileting General Evaluation Toileting Ability Minimal Assistance Areas Needing Assistance Manage Clothing Comments OT Toileting Comments SBA to stand and assist to get the brief over her feet. Pt would greatly benefit from BSC at home. OT ADL-Bathing Comments OT Bathing Comments Pt will benefit from assist. M5 OT- IP IADL's Start: 07/09/24 11:39 Freq: Status: Active Protocol: Document 07/09/24 11:39 [facility] (Rec: 07/09/24 12:05 [facility] [id number]) OT-Instrumental Activities of Daily Living Deficits IADL Deficits Identified Deficits Home Safety Awareness Awareness of Need for Assistance at Home Good Awareness Medication Management Medication Management Caregiver Administers Money Management Money Management Caregiver Provides Assistance Meal Preparation Meal Preparation Caregiver Provides Assist Color Tester Color Tester Caregiver Provides Assist M6 OT- IP Functional Cognition Start: 07/09/24 11:39 Freq: Status: Active Protocol: Document 07/09/24 11:39 [facility] (Rec: 07/09/24 12:05 [facility] [id number]) Cognitive Factors Limiting Selfcare Function Cognitive Ability Level of Alertness Alert Patient Orientation Name,Place Attention Span Ability Capable of Focused Attention, Capable of Sustained Attention Ability to Follow Commands Able to Follow One Step Commands with Increased Time, Able to Follow One Step Commands with Repetition Memory Description Short Term Impaired Safety Awareness Underestimates Need for Assistance Cognitive Comments Cognitive Assessment Comments Pt able to follow commands. Pt needing safety cues for walker use reminder to pull up her brief. Pt has a UTI which may also be affecting her thinking, formal cognitive assessment to be done next visit. OT- Vision and Hearing OT- Hearing Assessment OT- Hearing Assessment Hearing Impaired,Use of Hearing Aids OT- Vision Assessment Visual Acuity Glasses All The Time Vision Assessment Comments Pt does not have her glasses or hearing aids in . M7 OT- IP Mobility and Balance Start: 07/09/24 11:39 Freq: Status: Active Protocol: Document 07/09/24 11:39 [facility] (Rec: 07/09/24 12:05 [facility] [id number]) OT- Bed Mobility Assessment Supine to Sit Supine to Sit Assist Standby Assistance Sit to Supine Sit to Supine Assist Standby Assistance OT-Transfer Assessment Sit to and From Stand Sit to and from Stand Standby Assistance,Contact Guard Assistance Transfers Transfer Ability Standby Assistance,Contact Guard Assistance Technique Transfer Destination Bed,Toilet Transfer Technique Stand Step Pivot Devices Transfer Assistive Devices Gait Belt,Front Wheeled Walker Comments Mobility Comments SBA to get into and out of the bed. BP Supine 104/58, sitting 103/60 and standing 113/67- pt states not dizzy but does not feel well and agreed to use the bathroom. Pt on RA dropped to mid 80's after activity and needing vc to take some deep breaths and O2 to 93%. OT- Balance Assessment Sitting Balance and Reactions Static Sitting Balance Ability Good Dynamic Sitting Balance Ability Fair Standing Balance and Reactions Static Standing Balance Ability Fair Dynamic Standing Balance Ability Fair M8 OT- IP Objective Assessments Start: 07/09/24 11:39 Freq: Status: Active Protocol: Document 07/09/24 11:39 [facility] (Rec: 07/09/24 12:05 [facility] [id number]) OT Gross Range of Motion Upper Extremity Range of Motion Assessment Right Impaired OT Strength Upper Extremity Strength Assessment Right Impaired Comments Strength Comments LUE 4/5 and RUE 3-/5 to 4/5 due to pain and having to use her left arm to assist her RUE up at times. M9 OT- IP Assessment and Plan Start: 07/09/24 11:39 Freq: Status: Active Protocol: Document 07/09/24 11:39 [facility] (Rec: 07/09/24 12:05 [facility] [id number]) OT Summary Assessment and Plan Potential Rehabilitation Potential Good Analytic Complexity at Evaluation Moderate Summary OT Impairments Pain,Range of Motion,Strength, Balance,Functional Cognition, Functional Mobility,Grooming, Dressing,Toileting,Bathing, Toilet Transfers,Shower Transfers,Activity Tolerance Progress Towards Goals Slow Progress due to Pain,Slow Progress due to Medical Issues,Slow Progress due to Cognition Assessment Summary Pt MOD complexity and here due to fall and UTI. Pt would benefit from skilled rehab but pt states just wants to return home and do home health as gets stressed if not in her home environment. Pt would greatly benefit from home health OT as pt states more recently having difficulty with LB dressing, toileting , and bathing needs. Pt complaining of pain in RUE and notified hospitalist. Goals Grooming Goal Independent Dressing Goal Independent,Inspector Watch Assembly,Sock Aid Toileting Goal Independent Bathing Goal Standby Assistance Toilet Transfer Goal Independent Shower Transfer Goal Standby Assistance Days to Meet Goals 15 Frequency of Treatment Other frequency 5x/week Treatment Plan OT Treatment Plan ADL Training,Functional Cognition Training,Functional Mobility,Patient/Family Education,Discharge Planning Other Treatment Recommendations and Next SLUMS Treatment Focus Discharge Recommendations OT Discharge Recommendations Home with Assistance,Home Health,Home vs SNF Home Equipment Needs BSC,FWW, LB dressing equipment Transportation Needs at Discharge Wheelchair/Cabulance
[2024-07-09 12:00] VITALS: BP 61/40; BP 76/37; PULSE 70; RESP 19; TEMP 37.1; O2SAT 97
--- NOTE | 2024-07-09 12:14 | DI.RAD.S_ITS ---
PROCEDURE: XR SHOULDER RT MIN 2V INDICATIONS: pain TECHNIQUE: 2 views of the shoulder were acquired. COMPARISON: None. FINDINGS: Bones: No fractures or dislocations. No suspicious bony lesions. Visualized ribs appear intact. Soft tissues: No suspicious soft tissue calcifications. IMPRESSION: No acute bony abnormality. Dictated by: Carlos A Lino M.D. on 07/09/2024 at 12:42 Approved by: Carlos A Lino M.D. on 07/09/2024 at 12:43
--- NOTE | 2024-07-09 12:15 | DI.RAD.S_ITS ---
PROCEDURE: XR ELBOW RT 2V INDICATIONS: pain TECHNIQUE: 2 views of the elbow were acquired. COMPARISON: None. FINDINGS: Bones: No fractures or dislocations. No suspicious bony lesions. Soft tissues: No elbow joint effusion. No suspicious soft tissue calcifications. IMPRESSION: No acute bony abnormality or significant joint effusion. Dictated by: Carlos A Lino M.D. on 07/09/2024 at 12:42 Approved by: Carlos A Lino M.D. on 07/09/2024 at 12:42
[2024-07-09] MEDS: SODIUM CHLORIDE 0.9% 1,000 ML 1000 ML IV (12:33)
[2024-07-09 13:25] VITALS: BP 117/47
--- NOTE | 2024-07-09 14:00 | PT.IPTN ---
Current Diagnoses Urinary tract infection, site not specified (07/08/24) Physical Therapy Treatment Note M2 PT-IP Current Condition Start: 07/08/24 12:56 Freq: NEEDED Status: Active Protocol: Document 07/08/24 12:56 MB (Rec: 07/08/24 13:27 MB [id number]) Physical Therapy Current Condition Current Condition Evaluation Date 07/08/24 Treatment Diagnosis Falls M3 PT-IP Subjective Start: 07/08/24 12:56 Freq: NEEDED Status: Active Protocol: Document 07/09/24 14:00 [facility] (Rec: 07/09/24 17:00 AB [id number]) Subjective Physical Therapy Visit Type Type Treatment Note Visit Start Time 14:00 Visit Stop Time 14:40 Number of FILE MACHINE OPERATOR Visits 0 Physical Therapy Visit Comments Patient Comments agreeable to do PT; requesting to use the toilet M4 PT-IP Mobility and Gait Start: 07/08/24 12:56 Freq: NEEDED Status: Active Protocol: Document 07/09/24 14:00 [facility] (Rec: 07/09/24 17:00 AB [id number]) PT-Bed Mobility Assessment Supine to Sit Supine to Sit Standby Assistance PT-Transfer Assessment Sit to and From Stand Sit to and from Stand Contact Guard Assistance, Minimal Assistance,1 Person Assistance,Use of Upper Extremities Equipment Transfer Assistive Device Gait Belt,Front Wheeled Walker Orthotic/Prosthetic Devices or Brace: No Transfers Transfer Destination Toilet Transfer Technique ambulated Transfer Ability Level of Assist Contact Guard Assistance, Minimal Assistance,1 Person Assistance,Use of Upper Extremities Comments Mobility Comments from EMR, pt with low BP: 61/ 40. talked with nurse and stated that pt BP is better 100+/50+ and pt received IV bolus. pt supine in bed and agreeable to do PT. pt requesting to use the toilet. BP in supine: 104/50. pt completed supine to sit SBA with HOB elevated and pt used bed rail to assist. BP in sittin/60. initial dizziness but dissipated after a few seconds of sitting. completed sit to stand CGA to min A and ambulated towards the window using fWW CGA to m in A ~ 20 ft. pt requesting to use the toilet and ambulated to the toilet using FWW CGA to min A. pt completed toileting, CGA for standing balance using FWW for support for hygiene and brief management. pt ambulated from the toilet to the sink using fWW CGA. able to maintain standing CGA while completing handwashing. pt requested to go back to bed. pt ambulated to the bed using FWW CGA to min A. BP checked: 115/44. completed sit to supine SBA. positioned pt in bed. call light and table placed within reach. Gait Assessment Gait Gait Assistance Required: Contact Guard Assist,Minimum Assistance Distance (Feet) 20 Able to Maintain Weight Bearing Status Yes During Gait Assistive Devices Assistive Device Gait Belt,Front Wheeled Walker Orthotic/Prosthetic Devices or Brace: No Gait Deviations General Gait Pattern Decreased Stride Length, Decreased Feet Clearance Factors Limiting Gait Function Factors Limiting Gait Function Decreased Activity Tolerance, Decreased Strength,Difficulty Following Directions,Limited Range of Motion,Poor Balance, Poor Safety Awareness M5 PT-IP Objective Assessments Start: 07/08/24 12:56 Freq: NEEDED Status: Active Protocol: Document 07/08/24 12:56 MB (Rec: 07/08/24 13:27 MB [id number]) Orientation Orientation/Cognition Level of Alertness Lethargic Orientation Name,Age,Birthday,Place, Situation Safety Awareness Decreased Safety Awareness Comments Pt is not a good historian about baseline but states she is getting PT at [place] and doing what sounds like heel raises. She seems concerned about alex when PT asks why she might be falling. She cannot answer if she feels imbalanced. Pt states month as 2021 and when PT ed that the year is 2023 and asks pt month again, she states, 2021. Gross Range of Motion Upper Extremity ROM Assessment Within Functional Limits Impairments Pt does not fully participate with ROM or MMT Lower Extremity ROM Assessment Within Functional Limits Strength Lower Extremity Strength Ankle B DF and great toe extension 5 /5 in supine Comments Strength Comments Pt c/o pain with MMT DF and toes and does not participate with further MMT Coordination Assessment Assessment Coordination Comments Pt cannot follow commands for coordination testing this afternoon Sensation Assessment Comments Sensation Comments Pt does not follow sensory commands Muscle Tone Muscle Tone WNL Yes M6 PT-IP Treatment Start: 07/08/24 12:56 Freq: NEEDED Status: Active Protocol: Document 07/09/24 14:00 AB (Rec: 07/09/24 17:00 AB [id number]) Physical Therapy Treatment Education Education Provided Safety M7 PT-IP Assessment and Plan Start: 07/08/24 12:56 Freq: NEEDED Status: Active Protocol: Document 07/09/24 14:00 AB (Rec: 07/09/24 17:00 AB [id number]) PT Summary Assessment and Plan Potential Rehabilitation Potential Fair Summary Impairments Pain,Strength,Balance, Coordination,Cognition,Bed Mobility,Transfers,Gait, Activity Tolerance Progress Towards Goals Slow Progress due to Activity Tolerance,Slow Progress - Other Assessment Summary pt requiring CGA to min A with mobility using fWW and presents with decrease activity tolerance affecting level of assistance. pt with slight confusion and has decrease safety awareness. pt will benefit from SNF rehab to improve overall strength and mobility independence. Goals Bed Mobility Goal Independent Transfer Goal Independent,Front Wheeled Walker,Four Wheeled Walker Gait Goal Independent,Front Wheel Walker ,Four Wheel Walker Gait Distance 100 Days to Meet Goals 10 Frequency of Treatment Frequency Of Treatment Once a Day Treatment Plan Physical Therapy Treatment Plan Bed Mobility Training,Transfer Training,Gait Training, Therapeutic Exercise,Balance Retraining,Discharge Planning, Hot or Cold Pack,Neuromuscular Re-ed,Coordination Retraining ,Manual Therapy Recommendations To Nursing Amount of Assist Needed 1 Person Assist Discharge Recommendations PT Discharge Recommendations SNF Rehab Transportation Needs at Discharge Private Vehicle
--- NOTE | 2024-07-09 15:28 | CM.DANOTE ---
Initial DCP Assessment Note Pt is a 74 yo female, resident at [facility], presents after fall. PT/OT= home w/assist ([facility]) vs SNF depending on level of care available at [facility]. PCP: Peggy Alves Payer: [facility] Reviewed chart, met with patient to attempt assessment and patient trying to get a hold of her sister Sara, who lives in [facility]. Patient reports the number for her sister on the chart is outdated. Patient focused on this task. Attempted contact with [facility] and could not reach anyone. Patient reportedly is hopeful to return to [facility] with resumption of her [facility] services. Noreen OT requests OT be added to patient's HH visits. According to PT eval: Mobility and Gait Pt reports that she mobilizes with her 4WRW at [facility] and she has had multiple falls. She is unable to state if she feels imbalance and she mentions something about the alex there. When asked if she has been light-headed, she states she has. Activities of Daily Living and IADL's Pt states that she has a room to herself, a regular bed and that she walks down to the accessible BR and does bathing I. Plan: If Patient's care needs can be accommodated by [facility] staff, anticipate discharge back to [facility] with resumption of [facility], per patient's request. Otherwise, SNF referral needed and auth from [facility] needs to be secured, if patient agreeable to this. CM team will need to continue follow up this weekend. MARC Mcdonough Discharge Planning/Care Management CM Discharge Assessment Start: 07/09/24 15:13 Freq: Status: Active Protocol: Document 07/09/24 15:13 [facility] (Rec: 07/09/24 15:28 [facility] [id number]) Discharge Planning Assessment Assigned Infusion Rn MARC Adams DPOA/Assigned Designee Name Sara SeoKARINA Contact Information [phone]- Patient says this number is out of date, but unsure new # Advance Directives? Yes Advance Directives on File No History Provided By Patient Prior Living Arrangements Assisted Living Household Members other Type of transporation used prior to Relies on Others admit Facility Name Admitted From: [facility] Willing to Return to Facility? Yes Independent with ADL's No Is patient alert and oriented? Yes Barriers to Discharge Yes Comment Can [facility] accommodate patient's care needs? Transportation Arrangement Wheelchair
[2024-07-09 20:00] VITALS: BP 120/50; PULSE 76; RESP 12; TEMP 36.6; O2SAT 96
[2024-07-09] MEDS: clonazePAM 0.5 MG TABLET PO (20:28)
[2024-07-10] MEDS: ACETAMINOPHEN 325 MG TABLET 650 MG PO (02:58)
[2024-07-10 05:10] LABS: Add Manual Diff / Slide Review NO; Basophils Absolute Auto 0 /uL (0-100); Basophils Percent Auto 0.6 % (0-2); Eosinophils Absolute Auto 300 /uL (0-450); Eosinophils Percent Auto 3.8 % (2-4); Hematocrit 35.7 % (36-46); Lymphocytes Absolute Auto 2400 /uL (1100-4500); Lymphocytes Percent Auto 35.8 % (25-40); Mean Corpuscular HGB Conc 33.6 % (30-36); Mean Corpuscular Hemoglobin 34.4 PG (26-34); Mean Corpuscular Volume 102.3 fL (80-100); Monocytes Absolute Auto 700 /uL (0-900); Monocytes Percent Auto 10.3 % (3-14); Neutrophils Absolute Auto 3300 /uL (1500-7000); Neutrophils Percent Auto 49.5 % (50-75); Platelet Count 215 X10^3/uL (150-400); Red Blood Cell Count 3.49 X10^6/uL (4.0-5.2); White Blood Cell Count 6.7 X10^3/uL (4.5-11.0)
[2024-07-10 05:24] LABS: BUN Creatinine Ratio 14.9 (6-22); Blood Urea Nitrogen 10 mg/dL (7-17); Calcium 8.2 mg/dL (8.4-10.2); Carbon Dioxide 26 mmol/L (22-32); Chloride 106 mmol/L (98-107); Estimated Glomerular Filt Rate > 60 mL/min (>60); Glucose 111 mg/dL (80-110); HEMOLYSIS 22 (0-50); Sodium 134 mmol/L (137-145)
[2024-07-10 07:00] VITALS: BP 122/76; PULSE 86; RESP 18; TEMP 36.1; O2SAT 96
[2024-07-10] MEDS: IPRATROPIUM 0.06% NASAL 15 ML 1 SPRAY NASAL ×2 (09:00→14:41)
[2024-07-10] MEDS: NICOTINE 7 MG PATCH TOP (09:05)
[2024-07-10] MEDS: COLESEVELAM 625 MG TABLET PO ×2 (09:05→20:56)
[2024-07-10] MEDS: GABAPENTIN 600 MG TABLET PO ×3 (09:06→20:56)
[2024-07-10] MEDS: DULOXETINE 30 MG CAPSULE 60 MG PO ×2 (09:06→20:55)
[2024-07-10] MEDS: MONTELUKAST 10 MG TABLET PO (09:06)
[2024-07-10] MEDS: FERROUS SULFATE 325 MG TABLET PO (09:06)
[2024-07-10] MEDS: DOCUSATE 100 MG CAPSULE PO ×2 (09:06→20:56)
[2024-07-10] MEDS: MORPHINE IR 15 MG TABLET PO ×2 (09:06→21:11)
--- NOTE | 2024-07-10 10:18 | PT.IPTN ---
Current Diagnoses Urinary tract infection, site not specified (07/08/24) Physical Therapy Treatment Note M2 PT-IP Current Condition Start: 07/08/24 12:56 Freq: NEEDED Status: Active Protocol: Document 07/08/24 12:56 MB (Rec: 07/08/24 13:27 MB [id number]) Physical Therapy Current Condition Current Condition Evaluation Date 07/08/24 Treatment Diagnosis Falls M3 PT-IP Subjective Start: 07/08/24 12:56 Freq: NEEDED Status: Active Protocol: Document 07/10/24 10:46 TS (Rec: 07/10/24 10:58 TS [id number]) Subjective Physical Therapy Visit Type Type Treatment Note Visit Start Time 10:18 Visit Stop Time 10:41 Number of INJECTION MOULDING MACHINE OPERATOR Visits 1 Physical Therapy Visit Comments Patient Comments Pt found resting in bed, is slow to respond to questions and appears to have some confusion. Pt is agreeable to PT. M4 PT-IP Mobility and Gait Start: 07/08/24 12:56 Freq: NEEDED Status: Active Protocol: Document 07/10/24 10:46 TS (Rec: 07/10/24 10:58 TS [id number]) PT-Bed Mobility Assessment Supine to Sit Supine to Sit Standby Assistance,Head of Bed Elevated Sit to Supine Sit to Supine Standby Assistance,Head of Bed Elevated Scooting Scooting to Edge of Bed Standby Assistance PT-Transfer Assessment Sit to and From Stand Sit to and from Stand Contact Guard Assistance,1 Person Assistance,Use of Upper Extremities Equipment Transfer Assistive Device Gait Belt,Front Wheeled Walker Orthotic/Prosthetic Devices or Brace: No Comments Mobility Comments BP in supine 103/58. Supine to sit SBA with HOB elevated 30D . Pt sat EOB, reports some lightheadedness, BP in sitting 121/60. STS with FWW CGA, BP in standing 115/58, pt closes eyes and leans back briefly for a second, reports she felt like she was going to pass out. She ambulated with FWW ~ 20'CGA, pt is unsteady and fatigues quickly, she requests back to bed. Pt was left in bed, all needs met. Gait Assessment Gait Gait Assistance Required: Contact Guard Assist,Minimum Assistance Distance (Feet) 20 Able to Maintain Weight Bearing Status Yes During Gait Assistive Devices Assistive Device Gait Belt,Front Wheeled Walker Orthotic/Prosthetic Devices or Brace: No Gait Deviations General Gait Pattern Decreased Stride Length, Decreased Feet Clearance Factors Limiting Gait Function Factors Limiting Gait Function Decreased Activity Tolerance, Decreased Strength,Difficulty Following Directions,Limited Range of Motion,Poor Balance, Poor Safety Awareness PT-Balance Assessment Sitting Balance and Reactions Static Sitting Balance Ability Good Dynamic Sitting Balance Ability Fair Standing Balance and Reactions Static Standing Balance Ability Fair Dynamic Standing Balance Ability Fair Device Used FWW M5 PT-IP Objective Assessments Start: 07/08/24 12:56 Freq: NEEDED Status: Active Protocol: Document 07/08/24 12:56 MB (Rec: 07/08/24 13:27 MB [id number]) Orientation Orientation/Cognition Level of Alertness Lethargic Orientation Name,Age,Birthday,Place, Situation Safety Awareness Decreased Safety Awareness Comments Pt is not a good historian about baseline but states she is getting PT at [place] and doing what sounds like heel raises. She seems concerned about alex when PT asks why she might be falling. She cannot answer if she feels imbalanced. Pt states month as 2021 and when PT ed that the year is 2023 and asks pt month again, she states, 2021. Gross Range of Motion Upper Extremity ROM Assessment Within Functional Limits Impairments Pt does not fully participate with ROM or MMT Lower Extremity ROM Assessment Within Functional Limits Strength Lower Extremity Strength Ankle B DF and great toe extension 5 /5 in supine Comments Strength Comments Pt c/o pain with MMT DF and toes and does not participate with further MMT Coordination Assessment Assessment Coordination Comments Pt cannot follow commands for coordination testing this afternoon Sensation Assessment Comments Sensation Comments Pt does not follow sensory commands Muscle Tone Muscle Tone WNL Yes M6 PT-IP Treatment Start: 07/08/24 12:56 Freq: NEEDED Status: Active Protocol: Document 07/10/24 10:46 TS (Rec: 07/10/24 10:58 [id number]) Physical Therapy Treatment Education Education Provided Safety M7 PT-IP Assessment and Plan Start: 07/08/24 12:56 Freq: NEEDED Status: Active Protocol: Document 07/10/24 10:46 TS (Rec: 07/10/24 10:58 TS [id number]) PT Summary Assessment and Plan Potential Rehabilitation Potential Fair Summary Impairments Pain,Strength,Balance, Coordination,Cognition,Bed Mobility,Transfers,Gait, Activity Tolerance Progress Towards Goals Slow Progress due to Activity Tolerance,Slow Progress - Other Assessment Summary uSze continues to make slow progress with her mobility. She continues to be SBA for bed mobility with HOB elevated. She continues to ambulate short distances in the room with FWW. She has some lightheadedness in standing and sitting. She has one moment of closing her eyes and lean backwards in standing, she felt she was going to pass out. PT will continue to recommend SNF to improve activity tolerance. Goals Bed Mobility Goal Independent Transfer Goal Independent,Front Wheeled Walker,Four Wheeled Walker Gait Goal Independent,Front Wheel Walker ,Four Wheel Walker Gait Distance 100 Days to Meet Goals 10 Frequency of Treatment Frequency Of Treatment Once a Day Treatment Plan Physical Therapy Treatment Plan Bed Mobility Training,Transfer Training,Gait Training, Therapeutic Exercise,Balance Retraining,Discharge Planning, Hot or Cold Pack,Neuromuscular Re-ed,Coordination Retraining ,Manual Therapy Other Recommendations and Next Treatment Sensation, coordination and Focus gait assessments, increase mobility Recommendations To Nursing Amount of Assist Needed 1 Person Assist Discharge Recommendations PT Discharge Recommendations SNF Rehab Transportation Needs at Discharge Private Vehicle,Wheelchair/ Cabulance
--- NOTE | 2024-07-10 12:06 | CM.DPC ---
DCP HALFWAY vs SNF cont: Per PT, pt having some bp issues/dizziness with standing and attempting to ambulate and below baseline and continue to recommend SNF. MADDY finally got a hold of SHREYAS Segura at [facility] today after a couple attempts and leaving voicemails and Imelda states pt typically ambulates up a short hill with her walker independently 20+ times a day to smoke off campus and state pt will need bedside assessment prior to accepting her back but assessment cannot happen until Mon (today is Sat) as they do not have staff available for off site assessment this weekend. Imelda states to call [facility] on Mon AM and talk to their admin Jassi. SW made initial SNF referral to [facility] for review in case pt needs SNF at d/c and they will review but anticipate likely could not accept until Fri either and will submit for [facility] auth if they feel they can accept the patient. PASRR done but needs MD signature for exempted discharge due to depression/anxiety meds at baseline. MADDY met bedside with pt and explained role and pt very disappointed that she cannot d/c back to [facility] today and now aware of likely d/c on Fri and if not back to baseline would need SNF. Pt hopeful for return to [facility]. MADDY was able to confirm her sister's contact info, sister/KARINA Ruiz now living in [facility] and her cell phone is [phone] and requested her contact info be updated in EMR. MADDY called sister Sara per pt request and she was not aware the pt was admitted and updated her briefly on pt's status and possible return to [facility] vs [facility]. MADDY transferred call into pt room and confirmed pt was able to talk to her sister. Plan: MADDY to follow closely for further PT/OT to determine return to [facility] with [facility] if [facility] auth obtained likely Friday. MARC Cristina
--- NOTE | 2024-07-10 14:34 | PM.PN.1 ---
Subjective Subjective Interval history: The patient presented to the emergency department from her assisted living facility after having a fall. This is 1 of 2 falls that she has had over the last week or so. She was evaluated in the emergency department for hip pain and had extensive imaging including x-rays of the hip, chest, and CTs of the head and neck as well as chest and abdomen. No injuries were discovered. She did note foul-smelling urine and dysuria recently but denies a history of recurrent urinary tract infection. Her urine was consistent with a UTI with bacteria. She was started on IV fluids and antibiotics in the emergency department. She denies flank pain, or recent fevers. She does use a walker to get around. The emergency department did call her assisted living and they did confirm increased falls recently, as well as a more chronic history of falls. The patient will be placed in the hospital on observation and treated for urinary tract infection and her gait stability and strength will be evaluated by physical and occupational therapy. S: She feels much improved today, asking to return to [facility] if possible. They are unable to do an assessment until Friday due to lack of staff unfortunately. Exam Vital Signs (past 8 hours): - 07/10/24 07:00 07/10/24 07:00 Temperature 97.0 F L Pulse Rate 86 Respiratory Rate 18 Blood Pressure 122/76 Pulse Oximetry 96 Oxygen Delivery Method Room Air Oxygen Delivery Method Room Air Oxygen Flow Rate 0 Narrative Exam Narrative: NAD, alert and oriented. Fluent speech. Lungs are clear, normal rate and effort. Heart is regular, no murmur gallop or rub. Abdomen is soft, non distended. Extremities are free of edema. Objective Labs 07/10/24 04:47 07/10/24 04:47 Labs: Laboratory Results - last 24 hr 07/10/24 04:47 WBC 6.7 RBC 3.49 L Hgb 12.0 Hct 35.7 L MCV 102.3 H MCH 34.4 H MCHC 33.6 RDW 14.0 Plt Count 215 Neut % (Auto) 49.5 L Lymph % (Auto) 35.8 [place] % (Auto) 10.3 Eos % (Auto) 3.8 Baso % (Auto) 0.6 Neut # (Auto) 3300 Lymph # (Auto) 2400 [place] # (Auto) 700 Eos # (Auto) 300 Baso # (Auto) 0 Sodium 134 L Potassium 4.0 Chloride 106 Carbon Dioxide 26 BUN 10 Creatinine 0.67 Estimated GFR > 60 BUN/Creatinine Ratio 14.9 Glucose 111 H Calcium 8.2 L PFSH Social History household members: other Smoking Status: Current every day smoker alcohol intake: former Assessment & Plan Assessment & Plan narrative: 1. acute cystitis without hematuria, present on admission and active. 2. Acute on chronic falls, with possible escalation and frequency of falls in the last week. Present on admission and active. 3. Anxiety and PTSD, present on admission and stable. 4. 1/2 positive blood cultures (GPC + possible contaminant), new and active. 5. Right shoulder and elbow pain, present on admission and active. X-rays of the shoulder and elbow today are negative for fracture. 6. COPD without exacerbation. PLAN: -IV antibiotics, Ceftriaxone for 3 days total and follow urine culture. Blood cultures highly likely contaminant. Of note no dosing of ceftriaxone given on 07/09. To complete therapy on 07/11. -can stop IV fluids today. -physical therapy and occupational therapy evaluations for gait stability and general strength. -continue home morphine 15 mg BID -home inhalers replaced with formulary nebulizers. CODE STATUS: The patient shares that she was DNR status. Her sister lives in [place], and is proxy decision maker. Dispo: Remains inpatient. Discharge to SNF or ESE depending on ongoing PT/OT and [facility] assessment. Case management has been attempting to contact, and is unable to formally assess patient for return until Friday due to lack of staff. ANGELI: 07/12, either SNF or return to [facility] more likely. Time-Based Coding :: [TOTAL MINUTES] spent with patient and on the chart (including review of chart, obtaining history, exam, reviewing outside data, placing orders, documenting exam and treatment plan, and counseling patient) on [DATE]. Quality VTE Deep Vein Thrombosis/Pulmonary Embolism Present on Admission: No
[2024-07-10] MEDS: cefTRIAXone 1,000 MG in SODIUM CHLORIDE 0.9% 100 ML 200 MG IV (14:52)
[2024-07-10 20:00] VITALS: BP 145/77; PULSE 75; RESP 12; TEMP 36.2; O2SAT 93
[2024-07-10] MEDS: clonazePAM 0.5 MG TABLET PO (20:56)
[2024-07-11 05:22] LABS: Add Manual Diff / Slide Review NO; Basophils Absolute Auto 0 /uL (0-100); Basophils Percent Auto 0.7 % (0-2); Eosinophils Absolute Auto 200 /uL (0-450); Hematocrit 35.6 % (36-46); Hemoglobin 11.9 g/dL (12.0-16.0); Lymphocytes Absolute Auto 2200 /uL (1100-4500); Lymphocytes Percent Auto 37.9 % (25-40); Mean Corpuscular HGB Conc 33.5 % (30-36); Mean Corpuscular Hemoglobin 34.5 PG (26-34); Mean Corpuscular Volume 102.9 fL (80-100); Monocytes Absolute Auto 600 /uL (0-900); Monocytes Percent Auto 10.5 % (3-14); Neutrophils Absolute Auto 2700 /uL (1500-7000); Neutrophils Percent Auto 46.9 % (50-75); Platelet Count 233 X10^3/uL (150-400); Red Blood Cell Count 3.46 X10^6/uL (4.0-5.2); Red Cell Distribution Width 13.7 % (11.6-14.8); White Blood Cell Count 5.9 X10^3/uL (4.5-11.0)
[2024-07-11 05:40] LABS: BUN Creatinine Ratio 14.3 (6-22); Blood Urea Nitrogen 10 mg/dL (7-17); Calcium 8.6 mg/dL (8.4-10.2); Carbon Dioxide 30 mmol/L (22-32); Chloride 106 mmol/L (98-107); Estimated Glomerular Filt Rate > 60 mL/min (>60); Glucose 102 mg/dL (80-110); HEMOLYSIS 27 (0-50); Potassium 3.7 mmol/L (3.4-5.1); Sodium 136 mmol/L (137-145)
[2024-07-11 08:36] VITALS: BP 137/63; PULSE 88; RESP 22; TEMP 36.4; O2SAT 96
[2024-07-11] MEDS: DULOXETINE 30 MG CAPSULE 60 MG PO (09:05)
[2024-07-11] MEDS: FERROUS SULFATE 325 MG TABLET PO (09:05)
[2024-07-11] MEDS: GABAPENTIN 600 MG TABLET PO (09:05)
[2024-07-11] MEDS: NICOTINE 7 MG PATCH TOP (09:05)
[2024-07-11] MEDS: MONTELUKAST 10 MG TABLET PO (09:05)
[2024-07-11] MEDS: DOCUSATE 100 MG CAPSULE PO (09:06)
[2024-07-11] MEDS: COLESEVELAM 625 MG TABLET PO (09:49)
[2024-07-11] MEDS: MORPHINE IR 15 MG TABLET PO (09:49)
--- NOTE | 2024-07-11 10:54 | PT.IPTN ---
Current Diagnoses Urinary tract infection, site not specified (07/08/24) Physical Therapy Treatment Note M2 PT-IP Current Condition Start: 07/08/24 12:56 Freq: NEEDED Status: Active Protocol: Document 07/08/24 12:56 MB (Rec: 07/08/24 13:27 MB [id number]) Physical Therapy Current Condition Current Condition Evaluation Date 07/08/24 Treatment Diagnosis Falls M3 PT-IP Subjective Start: 07/08/24 12:56 Freq: NEEDED Status: Active Protocol: Document 07/11/24 10:19 MB (Rec: 07/11/24 10:53 MB [id number]) Subjective Physical Therapy Visit Type Type Treatment Note Visit Start Time 10:19 Visit Stop Time 10:42 Number of ICT DEVELOPER Visits 0 Physical Therapy Visit Comments Patient Comments Pt supine in bed and presenting with confusion. States she is Pissed I can't go have one cigarette and she is A&O to self and year only. She does not re-orient despite PT cues of location, month, date and reason she is in hospital. Makes ongoing unreleated comments during treatment. Therapy Pain Assessment Pain When Pain Assessed At Rest Pain Present Pain Present Denied Pain M4 PT-IP Mobility and Gait Start: 07/08/24 12:56 Freq: NEEDED Status: Active Protocol: Document 07/11/24 10:19 MB (Rec: 07/11/24 10:53 MB [id number]) PT-Bed Mobility Assessment Supine to Sit Supine to Sit Standby Assistance,Bedrails Scooting Scooting to Edge of Bed Standby Assistance PT-Transfer Assessment Sit to and From Stand Sit to and from Stand Contact Guard Assistance,1 Person Assistance,Use of Upper Extremities Equipment Transfer Assistive Device Gait Belt,Front Wheeled Walker Orthotic/Prosthetic Devices or Brace: No Transfers Transfer Destination Chair Transfer Technique Ambulation Transfer Ability Level of Assist Contact Guard Assistance,1 Person Assistance,Use of Upper Extremities Comments Mobility Comments BP and HR in LUE: supine 123/ 54, 90; standing 120/55, 99; standing 1' 118/49, 95; standing 2' 126/55, 95. Pt denies light-headedness when asked. Gait Assessment Gait Gait Assistance Required: Contact Guard Assist,1 Person Assist Distance (Feet) 100 Able to Maintain Weight Bearing Status Yes During Gait Assistive Devices Assistive Device Gait Belt,Front Wheeled Walker Orthotic/Prosthetic Devices or Brace: No Gait Deviations General Gait Pattern Wide Based Gait Factors Limiting Gait Function Factors Limiting Gait Function Poor Balance,Poor Safety Awareness Comments Gait Comments Pt gait trains better today, 20'x1 in room and 100'x2 in hallway with RW and CGA. Pt con't to ask PT to tell me about this place and she makes comments about wall PT-Balance Assessment Sitting Balance and Reactions Static Sitting Balance Ability Good Dynamic Sitting Balance Ability Good Standing Balance and Reactions Static Standing Balance Ability Good Dynamic Standing Balance Ability Good Device Used RW M5 PT-IP Objective Assessments Start: 07/08/24 12:56 Freq: NEEDED Status: Active Protocol: Document 07/11/24 10:19 MB (Rec: 07/11/24 10:53 MB [id number]) Orientation Orientation/Cognition Comments A&O to person and year only, not oriented to place, situation, date. M6 PT-IP Treatment Start: 07/08/24 12:56 Freq: NEEDED Status: Active Protocol: Document 07/11/24 10:19 MB (Rec: 07/11/24 10:53 MB [id number]) Physical Therapy Treatment Education Education Provided Safety M7 PT-IP Assessment and Plan Start: 07/08/24 12:56 Freq: NEEDED Status: Active Protocol: Document 07/11/24 10:19 MB (Rec: 07/11/24 10:53 MB [id number]) PT Summary Assessment and Plan Potential Rehabilitation Potential Fair Status of Condition at Evaluation Evolving Summary Impairments Balance,Coordination,Cognition ,Bed Mobility,Transfers,Gait, Activity Tolerance Progress Towards Goals Progressing Toward Goals Assessment Summary Pt is progressing with mobility and gait. She is very confused during treatment today. Goals Bed Mobility Goal Independent Transfer Goal Independent,Front Wheeled Walker,Four Wheeled Walker Gait Goal Independent,Front Wheel Walker ,Four Wheel Walker Gait Distance 100 Days to Meet Goals 10 Frequency of Treatment Frequency Of Treatment Once a Day Treatment Plan Physical Therapy Treatment Plan Bed Mobility Training,Transfer Training,Gait Training, Therapeutic Exercise,Balance Retraining,Discharge Planning, Hot or Cold Pack,Neuromuscular Re-ed,Coordination Retraining ,Manual Therapy Recommendations To Nursing Amount of Assist Needed 1 Person Assist Discharge Recommendations Other Discharge Recommendations Return to [facility] Transportation Needs at Discharge Private Vehicle
--- NOTE | 2024-07-11 12:26 | P.DS_ITS ---
History of Present Illness History of Present Illness Date Patient Seen: 07/11/24 Time Patient Seen: 12:26 Chief complaint: Found down, L hip pain Narrative: The patient presented to the emergency department from her assisted living facility after having a fall. This is 1 of 2 falls that she has had over the last week or so. She was evaluated in the emergency department for hip pain and had extensive imaging including x-rays of the hip, chest, and CTs of the head and neck as well as chest and abdomen. No injuries were discovered. She did note foul-smelling urine and dysuria recently but denies a history of recurrent urinary tract infection. Her urine was consistent with a UTI with bacteria. She was started on IV fluids and antibiotics in the emergency department. She denies flank pain, or recent fevers. She does use a walker to get around. The emergency department did call her assisted living and they did confirm increased falls recently, as well as a more chronic history of falls. The patient will be placed in the hospital on observation and treated for urinary tract infection and her gait stability and strength will be evaluated by physical and occupational therapy. She denies any specific areas of pain, no nausea. She would have diarrhea about a month ago but this resolved. No hematuria. Discharge Providers Provider Date of admission: 07/08/24 10:28 Discharge Date: 07/11/24 Primary care physician: CAMRON Israel Consults: 07/08/24 10:54 Consult to Occupational Therapy Evaluate & Treat Comment: Physician Instructions: Evaluate and treat Consult to Physical Therapy Evaluate & Treat Comment: Physician Instructions: Evaluate and Treat Discharge provider: Frank Quiñonez DO Summary Hospital Course Discharge Diagnosis: 1. acute cystitis without hematuria, present on admission and active. 2. Acute on chronic falls, with possible escalation and frequency of falls in the last week. Present on admission and active. 3. Anxiety and PTSD, present on admission and stable. 4. 1/2 positive blood cultures (GPC + possible contaminant), new and active. 5. Right shoulder and elbow pain, present on admission and active. X-rays of the shoulder and elbow today are negative for fracture. 6. COPD without exacerbation Hospital Course: This is a 74 year old female with PMH of anxiety, PTSD, COPD who was admitted with worsening falls from her assisted living facility. Evaluation showed an acute cystitis and she improved with ceftriaxone. Imaging was negative for fracture of her R shoulder and elbow. Urine cultures grew Proteus with resistance to macrobid, and fluoroquinolones. She was discharged on augmentin based on susceptibilities. She had continued improvement with antibiotic therapy, and though initially was recommended for SNF she was able to return to her assisted living facility on 07/11/24. She should continue another 3 days of oral augmentin on discharge for her acute cystitis after receiving 2 doses of ceftriaxone in the hospital. No other medication changes are recommended at the time of discharge. Time Spent with Patient Time spent: Greater than 30 minutes Exam Vital Signs (past 8 hours): - 07/11/24 08:36 Temperature 97.5 F L Pulse Rate 88 Respiratory Rate 22 Blood Pressure 137/63 Pulse Oximetry 96 Oxygen Delivery Method Room Air Oxygen Flow Rate 0 Narrative Exam Narrative: NAD, alert and oriented. Fluent speech. Lungs are clear, normal rate and effort. Heart is regular, no murmur gallop or rub. Abdomen is soft, non distended. Extremities are free of edema. Objective Labs 07/11/24 04:43 07/11/24 04:43 Labs: Laboratory Results - last 24 hr 07/11/24 04:43 WBC 5.9 RBC 3.46 L Hgb 11.9 L Hct 35.6 L MCV 102.9 H MCH 34.5 H MCHC 33.5 RDW 13.7 Plt Count 233 Neut % (Auto) 46.9 L Lymph % (Auto) 37.9 [place] % (Auto) 10.5 Eos % (Auto) 4.0 Baso % (Auto) 0.7 Neut # (Auto) 2700 Lymph # (Auto) 2200 [place] # (Auto) 600 Eos # (Auto) 200 Baso # (Auto) 0 Sodium 136 L Potassium 3.7 Chloride 106 Carbon Dioxide 30 BUN 10 Creatinine 0.70 Estimated GFR > 60 BUN/Creatinine Ratio 14.3 Glucose 102 Calcium 8.6 PFSH Social History household members: other Smoking Status: Current every day smoker alcohol intake: former Discharge Plan Discharge Plan Patient Disposition: Assisted Living Transfer to: [facility] Living Provider Discharge Comment: 74 F admitted with UTI. Improved with antibiotics. Continue antibiotics for another 3 days, okay if first outpatient dose tomorrow AM. Nursing Discharge Comment: drink plenty of fluids Discharge orders & Medications Discharge Orders: Discharge (Order); Ordered 07/11/24 Ordered By: Frank Quiñonez Prescriptions: New amoxicillin-pot clavulanate 875-125 mg Tablet 1 tab PO BID 3 Days Qty: 6 0RF Continued albuterol sulfate [Proventil HFA] 90 MCG/PUFF HFA aerosol inhaler 0.09 mg IH BID Qty: 0 fluticasone propionate [Flovent HFA] 12 GM HFA aerosol inhaler 1 puff INH Q DAY Qty: 12 clonazepam [Klonopin] 0.5 MG tablet 0.5 mg PO Q6HP Qty: 90 3RF trazodone 100 MG tablet 100 - 200 mg PO HS Qty: 30 3RF lubiprostone [Amitiza] 24 mcg capsule 24 mcg PO DAILY colesevelam 625 mg tablet 625 mg PO BID cyclobenzaprine 10 mg tablet 10 mg PO BID duloxetine 60 mg capsule,delayed release(DR/EC) 60 mg PO BID montelukast 10 mg tablet 10 mg PO DAILY benzonatate 200 mg capsule 200 mg PO BID PRN (Reason: Cough) morphine 15 mg tablet 15 mg PO BID gabapentin 600 mg tablet 600 mg PO TID clonazepam 0.5 mg Tablet 0.5 mg PO BEDTIME Rx Instructions: administer 30 minutes before bedtime ferrous sulfate 325 mg (65 mg iron) Tablet 325 mg PO DAILY triamcinolone acetonide 0.1 % ointment 0.5 applic topical BID ipratropium bromide 21 mcg (0.03 %) spray,non-aerosol 0.06 spray intranasal TID cyclosporine [Restasis] 0.05 % Dropperette 0.05 drp EYE-BOTH BID cholecalciferol (vitamin D3) [Vitamin D3] 125 mcg (5,000 unit) Tablet 125 mcg PO DAILY Spiriva Respimat 2.5 mcg/actuation Mist 2 inh INHALATION QAM Follow up/Referrals: Peggy Alves ARNP [Primary Care Provider] - Discharge Health Status Multidrug resistant organism: No MDRO Precautions: [place] Diet/Activity/Treatments Diet: Diet as Tolerated Liquid consistency: Normal/Thin Food texture: Regular Activity: No restrictions. Visit Report/Discharge Packet Instructions: DI for Urinary Tract Infection (UTI), Antibiotic Safety Stand Alone Forms: Patient Portal/API, Stroke Signs & Symptoms Discharge Data Primary Care Provider: Peggy Alves Quality VTE Deep Vein Thrombosis/Pulmonary Embolism Present on Admission: No
[2024-07-11] MEDS: AMOXICILLIN/CLAV 875/125 MG 1 TAB PO (13:31)
--- NOTE | 2024-07-11 14:02 | CM.DPNOTE ---
DCP Note DRUG PURCHASER reviewed EMR. Per hospitalist, cleared to return to [place] today. Per PT, mobilizing at baseline. DRUG PURCHASER spoke with pt in room. Gave copy of IMM. Pt eager/preference is to dc home to [place] and resume with [facility]. Pt confirms meds are managed through [place] pharmacy. DRUG PURCHASER spoke with Jassi from [facility], can take pt back just does not have transport. Jassi confirmed someone could meet her out front with walker to help her inside. DRUG PURCHASER faxed dc information/meds/PT notes to [facility] ([phone]). placed in dc packet and gave to RN. Medicaid transport arranged with yellow cab for 1345, p/u out front main entrance, updated RN/pt. in agreement. DRUG PURCHASER emailed [facility] referral information for HH services. Placed f2f in scanning folder. DRUG PURCHASER updated Anna at [facility] to cancel referral. P: dc home to [place] today via Medicaid transport at 1345. [facility] to follow. CM team will continue to follow as needed. MARC Kay
== END 2024-07-11 13:45 | disposition home health service (06) | DRG 690 ==
LOC: ED 07:40 → AC 10:30
PROVIDERS: Internal Medicine; Admitting Provider Hospitalist; Emergency Provider Emergency Medicine; PCP Nurse Practitioner Family; Referring Provider Emergency Medicine; Visit Provider Hospitalist
DX: N30.00 Acute cystitis without hematuria (principal); Z16.23 Resistance to quinolones and fluoroquinolones; Z16.29 Resistance to other single specified antibiotic; M25.552 Pain in left hip; F41.9 Anxiety disorder, unspecified; F43.10 Post-traumatic stress disorder, unspecified; M25.521 Pain in right elbow; M25.511 Pain in right shoulder; J44.9 Chronic obstructive pulmonary disease, unspecified; B96.4 Proteus (mirabilis) (morganii) as the cause of diseases classified elsewhere; F17.200 Nicotine dependence, unspecified, uncomplicated; W19.XXXA Unspecified fall, initial encounter; Z66 Do not resuscitate; Z91.81 History of falling
CPT/HCPCS: 0241U; 36415; 70450; 71045; 71260; 72125; 73030; 73070; 73502; 74177; 80048; 80053; 81001; 81003; 82550; 83690; 83880; 84484; 85025; 87040; 87077; 87086; 87154; 87186; 94640; 96365; 97116; 97161; 97166; 97530; 97535; 99285; 99406; J0696; J1644; Q9967

== ENCOUNTER 2024-07-14 07:05 | Observation (INO) | payer MEDICARE, MEDICAID, SELFPAY ==
[2024-07-14] VITALS (17 sets, daily range): BP systolic 92–136; BP diastolic 50–90; PULSE 66–113; RESP 16–30; TEMP 36.3–37.9; O2SAT 89–95; BMI 37.9; BMI 36.3
--- NOTE | 2024-07-14 07:06 | DI.RAD.S_ITS ---
PROCEDURE: XR CHEST 1V INDICATIONS: dyspnea TECHNIQUE: One view of the chest was acquired. COMPARISON: [facility], CR, XR CHEST 1V, 07/08/2024, 7:52. FINDINGS: Lungs and pleura: Mild blunting bilateral costophrenic angles, small pleural effusions or pleural thickening unchanged. Mildly prominent caden, pulmonary vascular congestion and/or hilar lymph nodes mildly decreased. Mild bibasilar subsegmental atelectasis. [id number] bilateral perihilar and lower lobe peribronchial thickening, some of which may be related to expiratory result, bronchitis, viral infection or other process mildly decreased. Mediastinum: Mildly enlarged cardiomediastinal silhouette unchanged. Mild calcifications of the aortic arch and descending aorta unchanged. Bones and chest wall: No suspicious bony lesions. Overlying soft tissues appear unremarkable. IMPRESSION: Small pleural effusions or pleural thickening unchanged. Mild pulmonary vascular congestion decreased. Mild bibasilar subsegmental atelectasis. [id number] peribronchial thickening, decreased. Dictated by: Robin Grullon M.D. on 07/14/2024 at 8:14 Approved by: Robin Grullon M.D. on 07/14/2024 at 8:22
--- NOTE | 2024-07-14 07:09 | ED.AMS ---
HPI - Altered Mental Status General Chief Complaint: Neuro Symptoms/Deficit Stated Complaint: recent fall/UTI Time Seen by Provider: 07/14/24 07:06 History of Present Illness HPI narrative: Blood sugar 125 by EMS. Patient brought in by [facility] facility for altered mental status. Staff there and EMS state that she is usually alert talking and more conversive. Awoke this morning with decreased conversation and orientation. Temperature here 100.2. Patient seen here week ago and treated for UTI. Just finished antibiotics yesterday. Patient does have a documentation of DNR. Patient is alert and oriented self only at this time. Is not combative. Grossly moving all 4 extremities. Clear speech. Patient denies any pain. No nausea or vomiting. No diarrhea. Related Data Home Medications Medication Instructions Recorded Confirmed albuterol sulfate 90 mcg/actuation 0.09 mg IH BID ##0 01/15/12 07/20/24 aerosol inhaler (Proventil HFA) fluticasone propionate 220 1 puff INH Q DAY ##12 08/14/12 07/20/24 mcg/actuation HFA aerosol inhaler (Flovent HFA) colesevelam 625 mg tablet 625 mg PO BID 02/11/24 07/20/24 cyclobenzaprine 10 mg tablet 10 mg PO BID 02/11/24 07/20/24 duloxetine 60 mg capsule,delayed 60 mg PO BID 02/11/24 07/20/24 release lubiprostone 24 mcg capsule 24 mcg PO DAILY 02/11/24 07/20/24 (Amitiza) montelukast 10 mg tablet 10 mg PO DAILY 02/11/24 07/20/24 benzonatate 200 mg capsule 200 mg PO BID PRN Cough 07/08/24 07/20/24 cholecalciferol (vitamin D3) 125 125 mcg PO DAILY 07/08/24 07/20/24 mcg (5,000 unit) tablet (Vitamin D3) cyclosporine 0.05 % eye drops in a 0.05 drp EYE-BOTH BID 07/08/24 07/20/24 dropperette (Restasis) ferrous sulfate 325 mg (65 mg 325 mg PO DAILY 07/08/24 07/20/24 iron) tablet gabapentin 600 mg tablet 600 mg PO TID 07/08/24 07/20/24 ipratropium bromide 21 mcg (0.03 0.06 spray intranasal TID 07/08/24 07/20/24 %) nasal spray tiotropium bromide 2.5 2 inh inhalation QAM 07/08/24 07/20/24 mcg/actuation mist for inhalation (Spiriva Respimat) triamcinolone acetonide 0.1 % 0.5 applic topical BID 07/08/24 07/20/24 topical ointment Allergies Allergy/AdvReac Type Severity Reaction Status Date / Time imipramine [IMIPRAMINE] Allergy Severe throat Verified 07/20/24 16:03 swelling influenza virus vaccine, Allergy Severe arm and Verified 07/20/24 16:03 specific body [INFLUENZA VIRUS swelling VACC,SPECIFIC] pneumococcal vaccine Allergy Severe body Verified 07/20/24 16:03 [PNEUMOCOCCAL VACCINE] swelling eucalyptus [EUCALYPTUS] Allergy Mild Verified 07/20/24 16:03 oxycodone [OXYCODONE] AdvReac Severe panic Verified 07/20/24 16:03 feeling rasagiline [From AZILECT] AdvReac Severe suicidal Verified 07/20/24 16:03 carbidopa [CARBIDOPA] AdvReac Mild nausea & Verified 07/20/24 16:03 vomiting Sulfa (Sulfonamide AdvReac Mild n/v Verified 07/20/24 16:03 Antibiotics) [SULFA (SULFONAMIDE ANTIBIOTICS)] sulfacetamide [SULFACETAMIDE] AdvReac Mild n/v Verified 07/20/24 16:03 TOMATOES Allergy Mild N/V Uncoded 07/20/24 16:03 TORFANIL Allergy Unknown PER PT Uncoded 07/20/24 16:03 Review of Systems Review of Systems Narrative: GENERAL: negative chills, fatigue, malaise, fever, sweats. HEENT: negative sinus pain, ear pain, sore throat RESPIRATORY: negative dyspnea, cough CARDIOVASCULAR: negative chest pain, palpitations GASTROINTESTINAL: negative nausea, vomiting, abdominal pain : negative dysuria, frequency, hematuria MUSCULOSKELETAL: negative muscle or bony pain SKIN: negative rash, skin lesions NEUROLOGIC: negative weakness, numbness, positive confusion, negative slurred speech negative facial droop PYSCH: Negative agitation ROS Unobtainable: All systems reviewed & are unremarkable except as noted in HPI and below Patient History Social History household members: other Smoking Status: Current every day smoker alcohol intake: former Smoking Status: Current every day smoker Substance Use Type: does not use Exam Narrative Exam Narrative: GENERAL: in no distress, not toxic not dyspneic HEAD: Normocephalic. EYES: Pupils equal round ENT: Mucous membranes moist. NECK: Trachea midline. CARDIOVASCULAR: Regular rate and rhythm RESPIRATORY: Coarse lung sounds bilaterally worse on the right. No wheezing. Patient no respiratory distress. Speaking easily. GASTROINTESTINAL: Abdomen soft, non-tender EXTREMITIES: No gross deformities. BACK: No flank tenderness. NEURO: Patient awake alert oriented self only. Does follow commands. No slurred speech no facial droop. 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 SKIN: Warm and dry PSYCH: Not anxious, is cooperative Initial Vital Signs Initial Vital Signs: Vital Signs Pulse Rate 90 07/14/24 07:03 Pulse Oximetry 89 L 07/14/24 07:03 Oxygen Delivery Method Room Air 07/14/24 07:03 Course Orders Ordered: Discontinued Medications Acetaminophen (Acetaminophen 325 Mg Tablet) 975 mg PO NOW ONE Stop: 07/14/24 07:09 Last Admin: 07/14/24 07:52 Dose: 975 mg Documented By: CARMELINA Albuterol (Albuterol 2.5 Mg/3 Ml Neb (Adult)) 2.5 mg INH RTBID [facility] Last Admin: 07/14/24 20:00 Dose: Not Given Documented By: BRENDA Albuterol (Albuterol 2.5 Mg/3 Ml Neb (Adult)) 2.5 mg INH RTBID PRN PRN Reason: Provider okayed order change Benzonatate (Benzonatate 100 Mg Capsule) 200 mg PO BID PRN PRN Reason: Cough Budesonide (Budesonide 0.5 Mg/2 Ml Neb) 0.5 mg INH RTBID [facility] Last Admin: 07/14/24 20:00 Dose: Not Given Documented By: BRENDA Budesonide (Budesonide 0.5 Mg/2 Ml Neb) 0.5 mg INH RTBID PRN PRN Reason: provider okayed order change Clonazepam (Clonazepam 0.5 Mg Tablet) 0.5 mg PO Q6H PRN PRN Reason: Anxiety Clonazepam (Clonazepam 0.5 Mg Tablet) 0.5 mg PO BEDTIME [facility] Colesevelam HCl (Colesevelam 625 Mg Tablet) 625 mg PO BID [facility] Last Admin: 07/15/24 09:21 Dose: 625 mg Documented By: ADRIANNA Cyclobenzaprine HCl (Cyclobenzaprine 10 Mg Tablet) 10 mg PO BID [facility] Duloxetine HCl (Duloxetine 30 Mg Capsule) 60 mg PO BID [facility] Enoxaparin Sodium (Enoxaparin 40 Mg/0.4 Ml Syringe) 40 mg SUBCUT DAILY [facility] Ferrous Sulfate (Ferrous Sulfate 325 Mg Tablet) 325 mg PO DAILY [facility] Last Admin: 07/15/24 09:21 Dose: 325 mg Documented By: ADRIANNA Gabapentin (Gabapentin 100 Mg Capsule) 100 mg PO TID [facility] Last Admin: 07/15/24 09:21 Dose: 100 mg Documented By: Admin: 07/14/24 20:37 Dose: 100 mg Documented By: CARMELINA(2) Admin: 07/14/24 15:08 Dose: 100 mg Documented By: PACO Doxycycline Hyclate 100 mg/ (Sodium Chloride) 100 mls @ 100 mls/hr IV NOW ONE Stop: 07/14/24 10:17 Last Infusion: 07/14/24 12:48 Dose: Infused Documented By: Admin: 07/14/24 11:36 Dose: 100 mls/hr Documented By: PACO Ceftriaxone Sodium 2,000 mg/ (Sodium Chloride) 100 mls @ 200 mls/hr IV NOW ONE Stop: 07/14/24 10:17 Last Infusion: 07/14/24 10:59 Dose: Infused Documented By: Admin: 07/14/24 10:27 Dose: 200 mls/hr Documented By: PACO(2) Ipratropium [place] (Ipratropium 0.06% Nasal 15 Ml) 1 spray NASAL TID [facility] Last Admin: 07/15/24 09:22 Dose: 1 spray Documented By: Admin: 07/14/24 20:39 Dose: 1 spray Documented By: CARMELINA(2) Admin: 07/14/24 15:58 Dose: 1 spray Documented By: PACO Ipratropium [place] (Ipratropium 0.5 Mg/2.5 Ml Neb) 0.5 mg INH Q4HRWA [facility] Last Admin: 07/14/24 20:00 Dose: Not Given Documented By: Admin: 07/14/24 18:34 Dose: Not Given Documented By: Admin: 07/14/24 13:00 Dose: Not Given Documented By: JEANNINE Ipratropium [place] (Ipratropium 0.5 Mg/2.5 Ml Neb) 0.5 mg INH Q4HRWA PRN PRN Reason: provider okayed order change. Ipratropium [place] (Ipratropium 0.5 Mg/2.5 Ml Neb) 0.5 mg INH [id number] PRN PRN Reason: provider okayed order change. Montelukast Sodium (Montelukast 10 Mg Tablet) 10 mg PO DAILY [facility] Last Admin: 07/15/24 09:21 Dose: 10 mg Documented By: MM Morphine Sulfate (Morphine Ir 15 Mg Tablet) 15 mg PO BID [facility] Naloxone HCl (Naloxone 0.4 Mg/Ml Vial) 0.2 mg IV Q2MIN PRN PRN Reason: Opiate Reversal Non-Formulary Medication (Cyclosporine [Restasis]) 0.05 drop EYE-BOTH BID [facility] Last Admin: 07/15/24 09:22 Dose: Not Given Documented By: Admin: 07/14/24 20:48 Dose: Not Given Documented By: MPO(2) Non-Formulary Medication (Lubiprostone [Amitiza]) 24 mcg PO DAILY [facility] Non-Formulary Medication (Triamcinolone Acetonide) 0.5 applictn TOP BID [facility] Sodium Chloride (Sodium Chloride 0.9% Flush) 10 ml IV PRN PRN PRN Reason: Flush Sodium Chloride (Sodium Chloride 0.9% Flush) 10 ml IV BID [facility] Last Admin: 07/15/24 09:22 Dose: 10 ml Documented By: ADRIANNA Trazodone HCl (Trazodone 50 Mg Tablet) 50 mg PO BEDTIME [facility] Last Admin: 07/14/24 20:37 Dose: 50 mg Documented By: MPO(2) Trazodone HCl (Trazodone 50 Mg Tablet) 50 mg PO BEDTIME [facility] Triamcinolone Acetonide (Triamcinolone 0.1% Cream 15 Gm) 0.5 applic TOP BID [facility] Last Admin: 07/15/24 09:23 Dose: Not Given Documented By: ADRIANNA Vitamin D (Cholecalciferol (Vitamin D3) 5,000 Unit Tablet) 5,000 unit PO DAILY [facility] Last Admin: 07/15/24 09:21 Dose: 5,000 unit Documented By: ADRIANNA Vital Signs Vital signs: Vital Signs - 8 hr 07/14/24 07:03 07/14/24 07:07 07/14/24 07:30 Temperature 100.2 F H Pulse Rate 90 100 H 91 H Respiratory Rate 21 Blood Pressure 136/72 Pulse Oximetry 89 L 95 93 Oxygen Delivery Method Room Air Nasal Cannula Nasal Cannula Oxygen Flow Rate 2 2 07/14/24 07:52 07/14/24 07:57 07/14/24 07:57 Temperature 100.2 F H Pulse Rate 88 Respiratory Rate Blood Pressure 113/61 Pulse Oximetry 91 Oxygen Delivery Method Oxygen Flow Rate 07/14/24 08:00 07/14/24 08:00 07/14/24 08:30 Temperature Pulse Rate 85 113 H Respiratory Rate 29 H Blood Pressure 121/58 L Pulse Oximetry 93 93 Oxygen Delivery Method Oxygen Flow Rate 07/14/24 08:30 07/14/24 08:56 07/14/24 09:00 Temperature 100 F H 100 F H 100.0 F H Pulse Rate 92 H Respiratory Rate 27 H Blood Pressure 105/56 L Pulse Oximetry 94 Oxygen Delivery Method Oxygen Flow Rate 07/14/24 09:01 07/14/24 09:01 07/14/24 09:33 Temperature 100.0 F H 99.1 F Pulse Rate 80 Respiratory Rate 30 H Blood Pressure 100/65 Pulse Oximetry 94 Oxygen Delivery Method Oxygen Flow Rate MDM - Altered Mental Status Lab Data 07/14/24 14:55 07/14/24 14:55 Labs: Lab Results 07/14/24 07/14/24 07/14/24 Range/Units 07:36 07:45 08:42 WBC 10.9 (4.5-11.0) X10^3/uL RBC 3.58 L (4.0-5.2) X10^6/uL Hgb 12.4 (12.0-16.0) g/dL Hct 37.1 (36-46) % MCV 103.6 H (80-100) fL MCH 34.5 H (26-34) PG MCHC 33.3 (30-36) % RDW 13.8 (11.6-14.8) % Plt Count 240 (150-400) X10^3/uL Neut % (Auto) 86.2 H (50-75) % Lymph % (Auto) 7.1 L (25-40) % [place]gs % (Auto) 5.4 (3-14) % Eos % (Auto) 1.1 L (2-4) % Baso % (Auto) 0.2 (0-2) % Neut # (Auto) 9400 H (5677-9283) /uL Lymph # (Auto) 800 L (1663-6906) /uL [place]gs # (Auto) 600 (0-900) /uL Eos # (Auto) 100 (0-450) /uL Baso # (Auto) 0 (0-100) /uL Sodium 133 L (137-145) mmol/L Potassium 3.8 (3.4-5.1) mmol/L Chloride 102 (98-107) mmol/L Carbon Dioxide 30 (22-32) mmol/L BUN 11 (7-17) mg/dL Creatinine 0.63 (0.52-1.04) mg/dL Estimated GFR > 60 (>60) mL/min BUN/Creatinine Ratio 17.5 (6-22) Glucose 122 H (80-110) mg/dL Lactate 1.4 (0.7-2.1) mmol/L Calcium 8.9 (8.4-10.2) mg/dL Total Bilirubin 0.5 (0.2-1.3) mg/dL AST 31 (14-36) IU/L ALT 25 (<35) IU/L Alkaline Phosphatase 75 (38-126) U/L Total Protein 6.1 L (6.3-8.2) g/dL Albumin 3.4 L (3.5-5.0) g/dL Globulin 2.7 (1.7-4.1) g/dL Albumin/Globulin Ratio 1.3 (1.0-2.8) Procalcitonin 0.065 (<0.5) ng/mL Urine Color Yellow Urine Appearance Clear Urine pH 5.5 (4.5-8.0) Ur Specific [place] 1.010 (1.000-1.035) Urine Protein Negative (Negative) Urine Glucose (UA) Negative (Negative) g/dL Urine Ketones Negative (NEGATIVE) Urine Occult Blood Negative (Negative) Urine Nitrate Negative (Negative) Urine Bilirubin Negative (NEGATIVE) Urine Urobilinogen 0.2 (0.2) E.U./dL Ur Leukocyte Esterase Negative (NEGATIVE) Urine RBC None seen (0-5/HPF) Urine WBC None seen (0-5/HPF) Ur Squamous Epith Cells 0-1 /hpf (0-5/HPF) Urine Bacteria None seen (None) Hyaline Casts 1-5/lpf (None) Urine Mucus 1+ H (Negative) Ur Culture Indicated? Cult not indicated Vol Urine Centrifuged 10ml (spun) Chlamy pneumoniae PCR Not detected (Not Detect) Adenovirus (PCR) Not detected (Not Detect) B.parapertussis DNA PCR Not detected (Not Detecte) Coronavirus OC43 (PCR) Not detected (Not Detect) Coronavirus HKU1 (PCR) Not detected (Not Detect) Coronavirus 229E (PCR) Not detected (Not Detect) SARS-CoV-2 (PCR) Not detected (Not Detecte) Coronavirus NL63 (PCR) Not detected (Not Detect) Human Metapneumovir PCR Not detected (Not Detect) Influenza Type A (PCR) Not detected (Not Detect) Influenza Type B (PCR) Not detected (Not Detect) M. pneumoniae (PCR) Not detected (Not Detect) Parainfluenza 1 (PCR) Not detected (Not Detect) Parainfluenza 2 (PCR) Not detected (Not Detect) Parainfluenza 3 (PCR) Not detected (Not Detect) Parainfluenza 4 (PCR) Not detected (Not Detect) RSV (PCR) Not detected (Not Detect) Entero/Rhino (PCR) Not detected (Not Detect) Imaging Data Chest x-ray: Radiologist's Impression: [address] [address] XRay Report Signed Patient: Suze Desai MR#: [id number] : 1950 Acct:[id number] Age/Sex: 74 / F Date of Service: 07/14/24 Loc: ED Accession Number: [id number] Procedure: XR chest 1V Ordering Provider: Jason Willams MD PROCEDURE: XR CHEST 1V INDICATIONS: dyspnea TECHNIQUE: One view of the chest was acquired. COMPARISON: [facility], CR, XR CHEST 1V, 07/08/2024, 7:52. FINDINGS: Lungs and pleura: Mild blunting bilateral costophrenic angles, small pleural effusions or pleural thickening unchanged. Mildly prominent kelly, pulmonary vascular congestion and/or hilar lymph nodes mildly decreased. Mild bibasilar subsegmental atelectasis. Psqc-hs-fpljvacz bilateral perihilar and lower lobe peribronchial thickening, some of which may be related to expiratory result, bronchitis, viral infection or other process mildly decreased. Mediastinum: Mildly enlarged cardiomediastinal silhouette unchanged. Mild calcifications of the aortic arch and descending aorta unchanged. Bones and chest wall: No suspicious bony lesions. Overlying soft tissues appear unremarkable. IMPRESSION: Small pleural effusions or pleural thickening unchanged. Mild pulmonary vascular congestion decreased. Mild bibasilar subsegmental atelectasis. Osjg-rl-gjtnkejk peribronchial thickening, decreased. Dictated by: Robin Grullon M.D. on 07/14/2024 at 8:14 Approved by: Robin Grullon M.D. on 07/14/2024 at 8:22 CT scan - chest: Radiologist's Impression: [address] [address] [address] Scan Report Signed Patient: Suze Desai MR#: [id number] : 1950 Acct:[id number] Age/Sex: 74 / F Date of Service: 07/14/24 Loc: 215-1 Accession Number: [id number] Procedure: CT chest wo con Ordering Provider: Jason Willams MD PROCEDURE: CT CHEST WO CON INDICATIONS: Shortness of breath / dyspnea TECHNIQUE: Noncontrast 5 mm thick sections acquired from the pulmonary apices to the posterior costophrenic angles. 1 mm lung window, 5 mm thick coronal and sagittal and 7 mm axial MIP reformats were then acquired. For radiation dose reduction, the following was used: automated exposure control, adjustment of mA and/or kV according to patient size. COMPARISON: Prior CT chest abdomen pelvis 07/08/2024 FINDINGS: Lggc-ki-woacaxal bilateral peribronchial thickening most notably in the lower lobes increased some of which may be related expiratory result however bronchitis, viral infection, asthma or other process should be considered. Mild bibasilar subsegmental atelectasis and patchy opacities with mild pleural-parenchymal scarring predominantly in the lower lobes mildly increased. Moderate calcifications of the aortic valve, coronary arteries and to a lesser degree aortic arch and descending aorta unchanged. Prominent lipomatous hypertrophy of the interatrial septum again noted unchanged Lower Neck: No enlarged lymph nodes. Thyroid: No thyroid nodules which require sonographic follow up, per consensus guidelines. Axillae: No enlarged lymph nodes. Chest Wall: Unremarkable. Bones: Moderate degenerative changes of the lower cervical, upper thoracic spine with mild dextroscoliosis unchanged. Pleura: No pneumothorax or pleural effusions. Heart: Heart size is normal. No pericardial effusion. Thoracic Vessels: The aorta and pulmonary arteries demonstrate normal size. Mediastinum and Kelly: No enlarged lymph nodes. Esophagus: No wall thickening. No hiatal hernia. Upper Abdomen: Mild non-specific wall thickening of the stomach predominately at the gastric body, antrum pylorus into the 1st portion of the duodenum partially imaged some of which commonly artifact from partial nondistention although mild gastritis, duodenitis could be considered. IMPRESSION: Tfve-zs-qzjgyxfy bilateral peribronchial thickening increased. Bronchitis, viral infection, asthma or other process should be considered. Mild bibasilar subsegmental atelectasis and patchy opacities increased. Moderate calcifications unchanged. New mild non-specific wall thickening of the stomach, gastritis, duodenitis could be considered. Dictated by: Robin Grullon M.D. on 07/14/2024 at 10:28 Approved by: Robin Grullon M.D. on 07/14/2024 at 10:38 [facility] Narrative Medical decision making narrative: Blood sugar 125 by EMS. Patient brought in by [place] [facility] facility for altered mental status. Staff there and EMS state that she is usually alert talking and more conversive. Awoke this morning with decreased conversation and orientation. Temperature here 100.2. Patient seen here week ago and treated for UTI. Just finished antibiotics yesterday. Patient does have a documentation of DNR. Patient is alert and oriented self only at this time. Is not combative. Grossly moving all 4 extremities. Clear speech. Patient denies any pain. No nausea or vomiting. No diarrhea. 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 Patient was not discharged on oxygen. Was given Augmentin for UTI. Differential considered: Includes but not limited to sepsis UTI pneumonia, hospital-acquired pneumonia aspiration pneumonia Lab Test results independently reviewed as above. Pertinent findings: WBC 10.9 hemoglobin 12.4 sodium 133 potassium 3.8 BUN 11 creatinine 0.63 glucose 122, urinalysis negative ketones negative leukocyte negative nitrite Imaging studies independently reviewed: Chest x-ray small pleural effusions mild to moderate peribronchial thickening CT chest Ragu-vc-mfowcnxz bilateral peribronchial thickening increased. Bronchitis, viral infection, asthma or other process should be considered. Mild bibasilar subsegmental atelectasis and patchy opacities increased. Consultations: 10:15 a.m.. Spoke with hospitalist, Dr. Mallory, who will admit patient, start Rocephin and doxycycline or Zithromax Treatments: Tylenol Re-evaluations: 8:49 a.m.. I spoke with patient's sister, power of staff attorney, Sara Seo, patient is DNR DNI with comfort measures only. [facility] POLST [facility]. It did confirm patient is DNR DNI with comfort measures only with permission for IV fluids and antibiotics. I spoke with sister and patient may be admitted for IV fluids if needed, but no surgeries intubation ventilator, she is okay with IV fluids and antibiotics, sister states her confusion likely started before today. She spoke with patient yesterday by phone and at that time patient was confused with conversation at times. Discussion: Appropriate for admission. Patient requiring supplemental oxygen. Sister does agree for admission for IV fluids and IV antibiotics. Reviewed with hospitalist for admission and desires to start with Rocephin and doxycycline. Patient is requiring supplemental oxygen but not toxic. Diagnosis: Community-acquired pneumonia Discharge Plan Departure Patient Disposition: Admitted as Observation Clinical Impression: Altered mental status Qualifiers: Altered mental status type: unspecified Qualified Code(s): R41.82 - Altered mental status, unspecified Community acquired pneumonia Qualifiers: Laterality: unspecified laterality Qualified Code(s): J18.9 - Pneumonia, unspecified organism Admit Date/Time: 07/14/24 10:16 Admit Provider: Kevin Mallory
--- NOTE | 2024-07-14 07:10 | PC.NURSE ---
Addendum entered by Stephanie Solis CNA 07/14/24 08:48: [facility] called back at 0849 and is faxing over POLST Form to ED fax. Addendum entered by Stephanie Solis CNA 07/14/24 08:45: a third attempt to call [facility] was done at 0832 with another voicemail left. Addendum entered by Stephanie Solis CNA 07/14/24 08:17: Second attempt to call [facility] made at 0750. Voicemail was left. Original Note: ALEKSEY Note: [facility] was called at [phone] to fax over a POLST form, a voice mail was left at [phone] for them to call back.
--- NOTE | 2024-07-14 07:31 | PC.NURSE ---
Addendum entered by Jayna Potts R.N. 07/14/24 08:49: Pt remains confused and states that there is some kind of writing on the wall but asserts that it is not the staffing whiteboard in her room. Pt answers questions appropriately, but is slow to answer. Pt also fidgety/restless and pulled out US guided IV. Temp sensing montoya placed. Dr Willams to speak with POA. Original Note: Pt arrived to ED via EMS from [facility] because of increased confusion. EMS reports that pt went to nurse's station and has jumbled confused speech. Staff at [facility] states that pt is normall A&Ox4 at baseline. Pt o2 sat low 80s in feild according to EMS and pt placed on 2L NC. Pt a&ox3 at the time of triage & remains on 2L NC. Recently d/c from for UTI. Dr Willams at bedside during triage.
[2024-07-14] MEDS: ACETAMINOPHEN 325 MG TABLET 975 MG PO (07:52)
[2024-07-14 08:09] LABS: Add Manual Diff / Slide Review NO; Basophils Absolute Auto 0 /uL (0-100); Basophils Percent Auto 0.2 % (0-2); Eosinophils Absolute Auto 100 /uL (0-450); Eosinophils Percent Auto 1.1 % (2-4); Hematocrit 37.1 % (36-46); Hemoglobin 12.4 g/dL (12.0-16.0); Lymphocytes Absolute Auto 800 /uL (1100-4500); Lymphocytes Percent Auto 7.1 % (25-40); Mean Corpuscular HGB Conc 33.3 % (30-36); Mean Corpuscular Hemoglobin 34.5 PG (26-34); Mean Corpuscular Volume 103.6 fL (80-100); Monocytes Absolute Auto 600 /uL (0-900); Monocytes Percent Auto 5.4 % (3-14); Neutrophils Absolute Auto 9400 /uL (1500-7000); Neutrophils Percent Auto 86.2 % (50-75); Platelet Count 240 X10^3/uL (150-400); Red Blood Cell Count 3.58 X10^6/uL (4.0-5.2); Red Cell Distribution Width 13.8 % (11.6-14.8); White Blood Cell Count 10.9 X10^3/uL (4.5-11.0)
[2024-07-14 08:21] LABS: Alanine Aminotransferase 25 IU/L (<35); Albumin 3.4 g/dL (3.5-5.0); Albumin Globulin Ratio 1.3 (1.0-2.8); Alkaline Phosphatase 75 U/L (38-126); Aspartate Aminotransferase 31 IU/L (14-36); BUN Creatinine Ratio 17.5 (6-22); Bilirubin Total 0.5 mg/dL (0.2-1.3); Blood Urea Nitrogen 11 mg/dL (7-17); Calcium 8.9 mg/dL (8.4-10.2); Carbon Dioxide 30 mmol/L (22-32); Chloride 102 mmol/L (98-107); Estimated Glomerular Filt Rate > 60 mL/min (>60); Globulin 2.7 g/dL (1.7-4.1); Glucose 122 mg/dL (80-110); HEMOLYSIS < 15 (0-50); Potassium 3.8 mmol/L (3.4-5.1); Sodium 133 mmol/L (137-145); Total Protein 6.1 g/dL (6.3-8.2)
[2024-07-14 08:22] LABS: Lactate (Lactic Acid) 1.4 mmol/L (0.7-2.1)
[2024-07-14 08:31] LABS: Adenovirus Not Detected (Not Detect); B. parapertussis Not Detected (Not Detecte); Bordetella pertussis Not Detected (Not Detect); Chlamydophila pneumoniae Not Detected (Not Detect); Coronavirus 229E Not Detected (Not Detect); Coronavirus HKU1 Not Detected (Not Detect); Coronavirus NL 63 Not Detected (Not Detect); Coronavirus OC43 Not Detected (Not Detect); Human Metapneumovirus Not Detected (Not Detect); Human Rhinovirus/Enterovirus Not Detected (Not Detect); Influenza A Not Detected (Not Detect); Influenza B Not Detected (Not Detect); Mycoplasma pneumoniae Not Detected (Not Detect); Parainfluenza Virus 1 Not Detected (Not Detect); Parainfluenza Virus 2 Not Detected (Not Detect); Parainfluenza Virus 3 Not Detected (Not Detect); Parainfluenza Virus 4 Not Detected (Not Detect); Respiratory Syncytial Virus Not Detected (Not Detect); SARS- CoV-2 Not Detected (Not Detecte)
[2024-07-14 08:38] LABS: Procalcitonin 0.065 ng/mL (<0.5)
--- NOTE | 2024-07-14 08:48 | DI.CT.S_ITS ---
PROCEDURE: CT CHEST WO CON INDICATIONS: Shortness of breath / dyspnea TECHNIQUE: Noncontrast 5 mm thick sections acquired from the pulmonary apices to the posterior costophrenic angles. 1 mm lung window, 5 mm thick coronal and sagittal and 7 mm axial MIP reformats were then acquired. For radiation dose reduction, the following was used: automated exposure control, adjustment of mA and/or kV according to patient size. COMPARISON: Prior CT chest abdomen pelvis 07/08/2024 FINDINGS: [id number] bilateral peribronchial thickening most notably in the lower lobes increased some of which may be related expiratory result however bronchitis, viral infection, asthma or other process should be considered. Mild bibasilar subsegmental atelectasis and patchy opacities with mild pleural-parenchymal scarring predominantly in the lower lobes mildly increased. Moderate calcifications of the aortic valve, coronary arteries and to a lesser degree aortic arch and descending aorta unchanged. Prominent lipomatous hypertrophy of the interatrial septum again noted unchanged Lower Neck: No enlarged lymph nodes. Thyroid: No thyroid nodules which require sonographic follow up, per consensus guidelines. Axillae: No enlarged lymph nodes. Chest Wall: Unremarkable. Bones: Moderate degenerative changes of the lower cervical, upper thoracic spine with mild dextroscoliosis unchanged. Pleura: No pneumothorax or pleural effusions. Heart: Heart size is normal. No pericardial effusion. Thoracic Vessels: The aorta and pulmonary arteries demonstrate normal size. Mediastinum and Kelly: No enlarged lymph nodes. Esophagus: No wall thickening. No hiatal hernia. Upper Abdomen: Mild non-specific wall thickening of the stomach predominately at the gastric body, antrum pylorus into the 1st portion of the duodenum partially imaged some of which commonly artifact from partial nondistention although mild gastritis, duodenitis could be considered. IMPRESSION: [id number] bilateral peribronchial thickening increased. Bronchitis, viral infection, asthma or other process should be considered. Mild bibasilar subsegmental atelectasis and patchy opacities increased. Moderate calcifications unchanged. New mild non-specific wall thickening of the stomach, gastritis, duodenitis could be considered. Dictated by: Robin Grullon M.D. on 07/14/2024 at 10:28 Approved by: Robin Grullon M.D. on 07/14/2024 at 10:38
[2024-07-14 08:49] LABS: Appearance Urine UA CLEAR; Bilirubin Urine UA NEGATIVE (NEGATIVE); Color Urine UA YELLOW; Glucose Urine UA NEGATIVE (Negative); Ketones Urine UA NEGATIVE (NEGATIVE); Leukocyte Esterase Urine UA NEGATIVE (NEGATIVE); Nitrite Urine UA NEGATIVE (Negative); Occult Blood Urine UA NEGATIVE (Negative); Protein Urine UA NEGATIVE (Negative); Urobilinogen Urine UA 0.2 E.U./dL (0.2); pH Urine UA 5.5 (4.5-8.0)
[2024-07-14 08:57] LABS: Urine Volume 10mL (spun)
[2024-07-14 09:00] LABS: Bacteria Urine None Seen; RBC Urine None Seen (0-5/HPF); Squamous Epithelial Cell Urine 0-1 /HPF (0-5/HPF); WBC Urine None Seen (0-5/HPF)
[2024-07-14 09:01] LABS: Hyaline Casts Urine 1-5/LPF
[2024-07-14 09:02] LABS: Culture Indicated Urine Cult Not Indicated; Mucus Urine 1+ (Negative)
[2024-07-14] MEDS: cefTRIAXone 2,000 MG in SODIUM CHLORIDE 0.9% 100 ML 200 MG IV (10:27)
[2024-07-14] MEDS: DOXYCYCLINE 100 MG in SODIUM CHLORIDE 0.9% 100 ML IV (11:36)
--- NOTE | 2024-07-14 14:07 | PM.HP.1 ---
History of Present Illness History of Present Illness Chief complaint: recent fall/UTI Narrative: ED Note: Patient brought in by [facility] facility for altered mental status. Staff there and EMS state that she is usually alert talking and more conversive. Awoke this morning with decreased conversation and orientation. Temperature here 100.2. Patient seen here week ago and treated for UTI. Just finished antibiotics yesterday. Patient does have a documentation of DNR. Patient is alert and oriented self only at this time. Is not combative. Grossly moving all 4 extremities. Clear speech. Patient denies any pain. No nausea or vomiting. No diarrhea. Previous Discharge Summary History of Present Illness Date Patient Seen: 07/11/24 Time Patient Seen: 12:26 Chief complaint: Found down, L hip pain Narrative: The patient presented to the emergency department from her assisted living facility after having a fall. This is 1 of 2 falls that she has had over the last week or so. She was evaluated in the emergency department for hip pain and had extensive imaging including x-rays of the hip, chest, and CTs of the head and neck as well as chest and abdomen. No injuries were discovered. She did note foul-smelling urine and dysuria recently but denies a history of recurrent urinary tract infection. Her urine was consistent with a UTI with bacteria. She was started on IV fluids and antibiotics in the emergency department. She denies flank pain, or recent fevers. She does use a walker to get around. The emergency department did call her assisted living and they did confirm increased falls recently, as well as a more chronic history of falls. The patient will be placed in the hospital on observation and treated for urinary tract infection and her gait stability and strength will be evaluated by physical and occupational therapy. This is a 74 year old female with PMH of anxiety, PTSD, COPD who was admitted with worsening falls from her assisted living facility. Evaluation showed an acute cystitis and she improved with ceftriaxone. Imaging was negative for fracture of her R shoulder and elbow. Urine cultures grew Proteus with resistance to macrobid, and fluoroquinolones. She was discharged on augmentin based on susceptibilities. She had continued improvement with antibiotic therapy, and though initially was recommended for SNF she was able to return to her assisted living facility on 07/11/24. She should continue another 3 days of oral augmentin on discharge for her acute cystitis after receiving 2 doses of ceftriaxone in the hospital. No other medication changes are recommended at the time of discharge. Patient who presented from nursing facility due to confusion. She was recently hospitalized due to UTI and out with a Rx for antibiotics to complete. Staff at shelter noticed her to be more confused today. Work-up in ED was unrevealing for obvious cause with vitals WNL and normal labs. She was given ceftriaxone / doxy in the ed for possible mild peribronchial thicking on chest ct and transferred to the floor for further management. Patient endorsed no specific complaints upon arrival. She was confused and had no insight to her situation, oriented only to self. [facility] Social History household members: other Smoking Status: Current every day smoker alcohol intake: former Comment: Unclear Past Medical History, appears to have significant psychiatric history based on home medications Meds Home Medications and Allergies Home Medications Medication Instructions Recorded Confirmed Type albuterol sulfate 90 mcg/actuation 0.09 mg IH BID ##0 01/15/12 07/14/24 History aerosol inhaler (Proventil HFA) fluticasone propionate 220 1 puff INH Q DAY ##12 08/14/12 07/14/24 History mcg/actuation HFA aerosol inhaler (Flovent HFA) clonazepam 0.5 mg tablet (Klonopin) 0.5 mg PO Q6HP #90 tabs 10/22/16 07/14/24 Rx trazodone 100 mg tablet 100 - 200 mg (1 - 2 x 100 mg) PO 01/15/17 07/14/24 Rx HS #30 tabs colesevelam 625 mg tablet 625 mg PO BID 02/11/24 07/14/24 History cyclobenzaprine 10 mg tablet 10 mg PO BID 02/11/24 07/14/24 History duloxetine 60 mg capsule,delayed 60 mg PO BID 02/11/24 07/14/24 History release lubiprostone 24 mcg capsule 24 mcg PO DAILY 02/11/24 07/14/24 History (Amitiza) montelukast 10 mg tablet 10 mg PO DAILY 02/11/24 07/14/24 History benzonatate 200 mg capsule 200 mg PO BID PRN Cough 07/08/24 07/14/24 History cholecalciferol (vitamin D3) 125 125 mcg PO DAILY 07/08/24 07/14/24 History mcg (5,000 unit) tablet (Vitamin D3) clonazepam 0.5 mg tablet 0.5 mg PO BEDTIME 07/08/24 07/14/24 History cyclosporine 0.05 % eye drops in a 0.05 drp EYE-BOTH BID 07/08/24 07/14/24 History dropperette (Restasis) ferrous sulfate 325 mg (65 mg 325 mg PO DAILY 07/08/24 07/14/24 History iron) tablet gabapentin 600 mg tablet 600 mg PO TID 07/08/24 07/14/24 History ipratropium bromide 21 mcg (0.03 0.06 spray intranasal TID 07/08/24 07/14/24 History %) nasal spray morphine 15 mg immediate release 15 mg PO BID 07/08/24 07/14/24 History tablet tiotropium bromide 2.5 2 inh inhalation QAM 07/08/24 07/14/24 History mcg/actuation mist for inhalation (Spiriva Respimat) triamcinolone acetonide 0.1 % 0.5 applic topical BID 07/08/24 07/14/24 History topical ointment Allergies Allergy/AdvReac Type Severity Reaction Status Date / Time imipramine [IMIPRAMINE] Allergy Severe throat Verified 07/14/24 10:58 swelling influenza virus vaccine, Allergy Severe arm and Verified 07/14/24 10:58 specific body [INFLUENZA VIRUS swelling VACC,SPECIFIC] pneumococcal vaccine Allergy Severe body Verified 07/14/24 10:58 [PNEUMOCOCCAL VACCINE] swelling eucalyptus [EUCALYPTUS] Allergy Mild Verified 07/14/24 10:58 oxycodone [OXYCODONE] AdvReac Severe panic Verified 07/14/24 10:58 feeling rasagiline [From AZILECT] AdvReac Severe suicidal Verified 07/14/24 10:58 carbidopa [CARBIDOPA] AdvReac Mild nausea & Verified 07/14/24 10:58 vomiting Sulfa (Sulfonamide AdvReac Mild n/v Verified 07/14/24 10:58 Antibiotics) [SULFA (SULFONAMIDE ANTIBIOTICS)] sulfacetamide [SULFACETAMIDE] AdvReac Mild n/v Verified 07/14/24 10:58 TOMATOES Allergy Mild N/V Uncoded 03/24/24 16:17 TORFANIL Allergy Unknown PER PT Uncoded 03/24/24 16:17 Review of Systems Review of Systems Narrative: unable to accurately obtain due to patient. denies pain / shortness of breath or cough Exam Vital Signs (past 8 hours): - 07/14/24 07:03 07/14/24 07:07 07/14/24 07:30 Temperature 100.2 F H Pulse Rate 90 100 H 91 H Respiratory Rate 21 Blood Pressure 136/72 Pulse Oximetry 89 L 95 93 Oxygen Delivery Method Room Air Nasal Cannula Nasal Cannula Oxygen Flow Rate 2 2 07/14/24 07:52 07/14/24 07:57 07/14/24 07:57 Temperature 100.2 F H Pulse Rate 88 Respiratory Rate Blood Pressure 113/61 Pulse Oximetry 91 Oxygen Delivery Method Oxygen Flow Rate 07/14/24 08:00 07/14/24 08:00 07/14/24 08:30 Temperature Pulse Rate 85 113 H Respiratory Rate 29 H Blood Pressure 121/58 L Pulse Oximetry 93 93 Oxygen Delivery Method Oxygen Flow Rate 07/14/24 08:30 07/14/24 08:56 07/14/24 09:00 Temperature 100 F H 100 F H 100.0 F H Pulse Rate 92 H Respiratory Rate 27 H Blood Pressure 105/56 L Pulse Oximetry 94 Oxygen Delivery Method Oxygen Flow Rate 07/14/24 09:01 07/14/24 09:01 07/14/24 09:33 Temperature 100.0 F H 99.1 F Pulse Rate 80 Respiratory Rate 30 H Blood Pressure 100/65 Pulse Oximetry 94 Oxygen Delivery Method Oxygen Flow Rate 07/14/24 10:30 07/14/24 11:00 07/14/24 11:02 Temperature 98.8 F 98.2 F 98.2 F Pulse Rate 74 66 69 Respiratory Rate 18 26 H Blood Pressure 92/52 L Pulse Oximetry 94 94 95 Oxygen Delivery Method Nasal Cannula Nasal Cannula Oxygen Flow Rate 2 2 07/14/24 11:02 07/14/24 11:03 07/14/24 11:03 Temperature 98.2 F Pulse Rate 67 Respiratory Rate 16 Blood Pressure 100/51 L 92/50 L Pulse Oximetry 95 Oxygen Delivery Method Nasal Cannula Oxygen Flow Rate 2 07/14/24 11:55 Temperature 97.8 F Pulse Rate 71 Respiratory Rate 16 Blood Pressure 124/90 Pulse Oximetry 92 Oxygen Delivery Method Oxygen Flow Rate 0 Oxygen Delivery Method Nasal Cannula Oxygen Flow Rate 0 Narrative Exam Narrative: general: not ill appearing lung: normal effort, CTA B/L cardio: RRR Abd: soft, non-tender Neuro: oriented only to self, no obvious focal deficits Psych: confused Objective Labs 07/14/24 07:45 07/14/24 07:45 Labs: Laboratory Results - last 24 hr 07/14/24 07/14/24 07/14/24 07:36 07:45 08:42 WBC 10.9 RBC 3.58 L Hgb 12.4 Hct 37.1 MCV 103.6 H MCH 34.5 H MCHC 33.3 RDW 13.8 Plt Count 240 Neut % (Auto) 86.2 H Lymph % (Auto) 7.1 L [place] % (Auto) 5.4 Eos % (Auto) 1.1 L Baso % (Auto) 0.2 Neut # (Auto) 9400 H Lymph # (Auto) 800 L [place] # (Auto) 600 Eos # (Auto) 100 Baso # (Auto) 0 Sodium 133 L Potassium 3.8 Chloride 102 Carbon Dioxide 30 BUN 11 Creatinine 0.63 Estimated GFR > 60 BUN/Creatinine Ratio 17.5 Glucose 122 H Lactate 1.4 Calcium 8.9 Total Bilirubin 0.5 AST 31 ALT 25 Alkaline Phosphatase 75 Total Protein 6.1 L Albumin 3.4 L Globulin 2.7 Albumin/Globulin Ratio 1.3 Procalcitonin 0.065 Urine Color Yellow Urine Appearance Clear Urine pH 5.5 Ur Specific [place] 1.010 Urine Protein Negative Urine Glucose (UA) Negative Urine Ketones Negative Urine Occult Blood Negative Urine Nitrate Negative Urine Bilirubin Negative Urine Urobilinogen 0.2 Ur Leukocyte Esterase Negative Urine RBC None seen Urine WBC None seen Ur Squamous Epith Cells 0-1 /hpf Urine Bacteria None seen Hyaline Casts 1-5/lpf Urine Mucus 1+ H Ur Culture Indicated? Cult not indicated Vol Urine Centrifuged 10ml (spun) Chlamy pneumoniae PCR Not detected Adenovirus (PCR) Not detected B.parapertussis DNA PCR Not detected Coronavirus OC43 (PCR) Not detected Coronavirus HKU1 (PCR) Not detected Coronavirus 229E (PCR) Not detected SARS-CoV-2 (PCR) Not detected Coronavirus NL63 (PCR) Not detected Human Metapneumovir PCR Not detected Influenza Type A (PCR) Not detected Influenza Type B (PCR) Not detected M. pneumoniae (PCR) Not detected Parainfluenza 1 (PCR) Not detected Parainfluenza 2 (PCR) Not detected Parainfluenza 3 (PCR) Not detected Parainfluenza 4 (PCR) Not detected RSV (PCR) Not detected Entero/Rhino (PCR) Not detected Assessment & Plan Assessment & Plan narrative: #Altered Mental Status etiology unclear at this point, this is possibly iatrogenic due to her numerous psych meds. she has some findings on CT this might indicate a possible infection but not convincing. we will hold her home meds and try to get her a good sleep and see how she does -hold home psych meds -monitor for infection, low threshold to start antibiotics -obtain B12 folate level -maintain day/night hygiene DVT PPx: Lovenox CODE: DNR/DNI Time-Based Coding :: [TOTAL MINUTES] spent with patient and on the chart (including review of chart, obtaining history, exam, reviewing outside data, placing orders, documenting exam and treatment plan, and counseling patient) on [DATE]. Quality VTE Deep Vein Thrombosis/Pulmonary Embolism Present on Admission: No
[2024-07-14 15:06] LABS: Add Manual Diff / Slide Review NO; Basophils Absolute Auto 0 /uL (0-100); Basophils Percent Auto 0.5 % (0-2); Eosinophils Absolute Auto 100 /uL (0-450); Eosinophils Percent Auto 1.5 % (2-4); Hematocrit 37.1 % (36-46); Hemoglobin 12.2 g/dL (12.0-16.0); Lymphocytes Absolute Auto 1800 /uL (1100-4500); Lymphocytes Percent Auto 19.9 % (25-40); Mean Corpuscular Hemoglobin 34.1 PG (26-34); Mean Corpuscular Volume 103.3 fL (80-100); Monocytes Absolute Auto 600 /uL (0-900); Monocytes Percent Auto 6.7 % (3-14); Neutrophils Absolute Auto 6500 /uL (1500-7000); Neutrophils Percent Auto 71.4 % (50-75); Platelet Count 224 X10^3/uL (150-400); Red Blood Cell Count 3.59 X10^6/uL (4.0-5.2); Red Cell Distribution Width 13.4 % (11.6-14.8); White Blood Cell Count 9.1 X10^3/uL (4.5-11.0)
[2024-07-14] MEDS: GABAPENTIN 100 MG CAPSULE PO ×2 (15:08→20:37)
[2024-07-14 15:25] LABS: BUN Creatinine Ratio 14.5 (6-22); Blood Urea Nitrogen 9 mg/dL (7-17); Calcium 8.6 mg/dL (8.4-10.2); Carbon Dioxide 31 mmol/L (22-32); Chloride 105 mmol/L (98-107); Estimated Glomerular Filt Rate > 60 mL/min (>60); Glucose 95 mg/dL (80-110); HEMOLYSIS < 15 (0-50); Potassium 3.9 mmol/L (3.4-5.1); Sodium 137 mmol/L (137-145)
[2024-07-14] MEDS: IPRATROPIUM 0.06% NASAL 15 ML 1 SPRAY NASAL ×2 (15:58→20:39)
--- NOTE | 2024-07-14 20:35 | DI.CT.S_ITS ---
PROCEDURE: CT HEAD/BRAIN WO CON INDICATIONS: change in mental status, frequent falls, r/o bleed TECHNIQUE: Noncontrast 4.5 mm thick angled axial sections acquired from the foramen magnum to the vertex, with coronal and sagittal reformats. For radiation dose reduction, the following was used: automated exposure control, adjustment of mA and/or kV according to patient size. COMPARISON: [facility], CT, CT HEAD/BRAIN WO CON, 07/08/2024, 8:19. FINDINGS: Image quality: Diagnostic. CSF spaces: Basal cisterns are patent. No extra-axial fluid collections. Ventricles are normal in size and shape. Brain: No midline shift. No intracranial masses or hemorrhage. No area of hypodensity in a large vascular distribution to suggest acute infarction. Periventricular hypodensity consistent with chronic microvascular ischemic change. Age-related parenchymal loss. Skull and face: Calvarium and visualized facial bones are intact, without suspicious lesions. Sinuses: Visualized sinuses and mastoids are clear. IMPRESSION: No acute intracranial hemorrhage. Dictated by: Leander Nettles M.D. on 07/14/2024 at 22:12 Approved by: Leander Nettles M.D. on 07/14/2024 at 22:14
[2024-07-14] MEDS: TRAZODONE 50 MG TABLET PO (20:37)
[2024-07-15 08:00] VITALS: BP 117/81; PULSE 79; RESP 12; TEMP 36.6; O2SAT 93
[2024-07-15] MEDS: GABAPENTIN 100 MG CAPSULE PO (09:21)
[2024-07-15] MEDS: FERROUS SULFATE 325 MG TABLET PO (09:21)
[2024-07-15] MEDS: CHOLECALCIFEROL (VITAMIN D3) 5,000 UNIT TABLET 5000 UNIT PO (09:21)
[2024-07-15] MEDS: COLESEVELAM 625 MG TABLET PO (09:21)
[2024-07-15] MEDS: MONTELUKAST 10 MG TABLET PO (09:21)
[2024-07-15] MEDS: SODIUM CHLORIDE 0.9% FLUSH 10 ML IV (09:22)
[2024-07-15] MEDS: IPRATROPIUM 0.06% NASAL 15 ML 1 SPRAY NASAL (09:22)
--- NOTE | 2024-07-15 12:40 | PM.DS.1 ---
History of Present Illness History of Present Illness Chief complaint: recent fall/UTI Narrative: ED Note: Patient brought in by [facility] facility for altered mental status. Staff there and EMS state that she is usually alert talking and more conversive. Awoke this morning with decreased conversation and orientation. Temperature here 100.2. Patient seen here week ago and treated for UTI. Just finished antibiotics yesterday. Patient does have a documentation of DNR. Patient is alert and oriented self only at this time. Is not combative. Grossly moving all 4 extremities. Clear speech. Patient denies any pain. No nausea or vomiting. No diarrhea. Previous Discharge Summary History of Present Illness Date Patient Seen: 07/11/24 Time Patient Seen: 12:26 Chief complaint: Found down, L hip pain Narrative: The patient presented to the emergency department from her assisted living facility after having a fall. This is 1 of 2 falls that she has had over the last week or so. She was evaluated in the emergency department for hip pain and had extensive imaging including x-rays of the hip, chest, and CTs of the head and neck as well as chest and abdomen. No injuries were discovered. She did note foul-smelling urine and dysuria recently but denies a history of recurrent urinary tract infection. Her urine was consistent with a UTI with bacteria. She was started on IV fluids and antibiotics in the emergency department. She denies flank pain, or recent fevers. She does use a walker to get around. The emergency department did call her assisted living and they did confirm increased falls recently, as well as a more chronic history of falls. The patient will be placed in the hospital on observation and treated for urinary tract infection and her gait stability and strength will be evaluated by physical and occupational therapy. This is a 74 year old female with PMH of anxiety, PTSD, COPD who was admitted with worsening falls from her assisted living facility. Evaluation showed an acute cystitis and she improved with ceftriaxone. Imaging was negative for fracture of her R shoulder and elbow. Urine cultures grew Proteus with resistance to macrobid, and fluoroquinolones. She was discharged on augmentin based on susceptibilities. She had continued improvement with antibiotic therapy, and though initially was recommended for SNF she was able to return to her assisted living facility on 07/11/24. She should continue another 3 days of oral augmentin on discharge for her acute cystitis after receiving 2 doses of ceftriaxone in the hospital. No other medication changes are recommended at the time of discharge. Patient who presented from nursing facility due to confusion. She was recently hospitalized due to UTI and out with a Rx for antibiotics to complete. Staff at correction noticed her to be more confused today. Work-up in ED was unrevealing for obvious cause with vitals WNL and normal labs. She was given ceftriaxone / doxy in the ed for possible mild peribronchial thicking on chest ct and transferred to the floor for further management. Patient endorsed no specific complaints upon arrival. She was confused and had no insight to her situation, oriented only to self. Discharge Providers Provider Date of admission: 07/14/24 10:16 Discharge Date: 07/15/24 Primary care physician: CAMRON Israel Discharge provider: Kevin Mallory MD Summary Status at Discharge Overall status at discharge: patient is back to baseline Time Spent with Patient Time spent: Less than 30 minutes Exam Vital Signs (past 8 hours): - 07/15/24 08:00 Temperature 97.9 F Pulse Rate 79 Respiratory Rate 12 Blood Pressure 117/81 Pulse Oximetry 93 Oxygen Flow Rate 0 Oxygen Delivery Method Nasal Cannula Oxygen Flow Rate 0 Narrative Exam Narrative: general: well appearing neuro: alert and oriented x3 psych: pleasant Objective Labs 07/14/24 14:55 07/14/24 14:55 Labs: Laboratory Results - last 24 hr 07/14/24 14:55 WBC 9.1 RBC 3.59 L Hgb 12.2 Hct 37.1 MCV 103.3 H MCH 34.1 H MCHC 33.0 RDW 13.4 Plt Count 224 Neut % (Auto) 71.4 Lymph % (Auto) 19.9 L [place] % (Auto) 6.7 Eos % (Auto) 1.5 L Baso % (Auto) 0.5 Neut # (Auto) 6500 Lymph # (Auto) 1800 [place] # (Auto) 600 Eos # (Auto) 100 Baso # (Auto) 0 Sodium 137 Potassium 3.9 Chloride 105 Carbon Dioxide 31 BUN 9 Creatinine 0.62 Estimated GFR > 60 BUN/Creatinine Ratio 14.5 Glucose 95 Calcium 8.6 PFSH Social History household members: other Smoking Status: Current every day smoker alcohol intake: former Discharge Assessment & Plan Assessment and Plan Assessment: #AMS, suspected to iatrogenic from home meds Plan of Treatment: recommend reducing patients med list including removal of benzos and narcotic, not making any changes on discharge Discharge Plan Discharge Plan Patient Disposition: Assisted Living Transfer to: [facility] Provider Discharge Comment: stable for discharge Discharge orders & Medications Discharge Orders: Discharge (Order); Ordered 07/15/24 Ordered By: Kevin Mallory Prescriptions: Continued albuterol sulfate [Proventil HFA] 90 MCG/PUFF HFA aerosol inhaler 0.09 mg IH BID Qty: 0 fluticasone propionate [Flovent HFA] 12 GM HFA aerosol inhaler 1 puff INH Q DAY Qty: 12 clonazepam [Klonopin] 0.5 MG tablet 0.5 mg PO Q6HP Qty: 90 3RF trazodone 100 MG tablet 100 - 200 mg PO HS Qty: 30 3RF lubiprostone [Amitiza] 24 mcg capsule 24 mcg PO DAILY colesevelam 625 mg tablet 625 mg PO BID cyclobenzaprine 10 mg tablet 10 mg PO BID duloxetine 60 mg capsule,delayed release(DR/EC) 60 mg PO BID montelukast 10 mg tablet 10 mg PO DAILY benzonatate 200 mg capsule 200 mg PO BID PRN (Reason: Cough) morphine 15 mg tablet 15 mg PO BID gabapentin 600 mg tablet 600 mg PO TID clonazepam 0.5 mg Tablet 0.5 mg PO BEDTIME Rx Instructions: administer 30 minutes before bedtime ferrous sulfate 325 mg (65 mg iron) Tablet 325 mg PO DAILY triamcinolone acetonide 0.1 % ointment 0.5 applic topical BID ipratropium bromide 21 mcg (0.03 %) spray,non-aerosol 0.06 spray intranasal TID cyclosporine [Restasis] 0.05 % Dropperette 0.05 drp EYE-BOTH BID cholecalciferol (vitamin D3) [Vitamin D3] 125 mcg (5,000 unit) Tablet 125 mcg PO DAILY Spiriva Respimat 2.5 mcg/actuation Mist 2 inh INHALATION QAM Follow up/Referrals: Peggy Alves ARNP [Primary Care Provider] - Diet/Activity/Treatments Food texture: Regular Visit Report/Discharge Packet Stand Alone Forms: Patient Portal/API, Stroke Signs & Symptoms Discharge Data Primary Care Provider: Peggy Alves Attending Provider: Kevin Mallory Admit Date/Time: 07/14/24 10:16 Quality VTE Deep Vein Thrombosis/Pulmonary Embolism Present on Admission: No
--- NOTE | 2024-07-15 16:12 | CM.DPNOTE ---
DC Note Patient discussed in multidisciplinary rounds; patient ready for discharge today and is thought to be at functional and cognitive baseline. 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 BASSAM Carrion updated. Patient updated and agreeable. Signed med list and DC Summary faxed to Mago Rothman [phone] Plan: Discharge back to [facility] via wheelchair. EARNEST
== END 2024-07-15 14:00 ==
LOC: ED 08:58 → AC 10:16
PROVIDERS: Admitting Provider Student in an Organized Health Care Education/Training Program; Emergency Provider Emergency Medicine; PCP Nurse Practitioner Family; Referring Provider Emergency Medicine; Visit Provider Student in an Organized Health Care Education/Training Program
DX: R41.82 Altered mental status, unspecified (principal); Z11.52 Encounter for screening for COVID-19; F17.210 Nicotine dependence, cigarettes, uncomplicated; Z66 Do not resuscitate
CPT/HCPCS: 36415; 70450; 71045; 71250; 80048; 80053; 81001; 83605; 84145; 85025; 87040; 87633; 96365; 96367; 99285; G0378; J0696

== ENCOUNTER 2024-07-20 15:55 | Inpatient (IN) | payer MEDICARE, MEDICAID, SELFPAY ==
[2024-07-14 11:32] VITALS: BMI 36.3
[2024-07-20] VITALS (31 sets, daily range): BP systolic 103–151; BP diastolic 54–83; PULSE 66–106; RESP 16–36; TEMP 36.6; O2SAT 88–98; BMI 38.2
--- NOTE | 2024-07-20 16:05 | EKG_ITS ---
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
--- NOTE | 2024-07-20 16:11 | DI.RAD.S_ITS ---
PROCEDURE: XR CHEST 1V INDICATIONS: chest pain TECHNIQUE: One view of the chest was acquired. COMPARISON: [facility], CR, XR CHEST 1V, 07/14/2024, 7:24. FINDINGS: Surgical changes and devices: None. Lungs and pleura: Lungs are clear. No pleural effusions or pneumothorax. Mediastinum: Mediastinal contours appear normal. Heart size is enlarged. Bones and chest wall: No suspicious bony lesions. Overlying soft tissues appear unremarkable. IMPRESSION: No acute cardiopulmonary pathology. Dictated by: Wilfredo Domingo M.D. on 07/20/2024 at 16:42 Approved by: Wilfredo oDmingo M.D. on 07/20/2024 at 16:42
--- NOTE | 2024-07-20 16:11 | DI.CT.S_ITS ---
PROCEDURE: CT HEAD/BRAIN WO CON INDICATIONS: altered mental status, fall TECHNIQUE: Noncontrast 4.5 mm thick angled axial sections acquired from the foramen magnum to the vertex, with coronal and sagittal reformats. For radiation dose reduction, the following was used: automated exposure control, adjustment of mA and/or kV according to patient size. COMPARISON: [facility], CT, CT HEAD/BRAIN WO CON, 03/21/2024, 15:33. [facility], CT, CT HEAD/BRAIN WO CON, 07/08/2024, 8:19. [facility], CT, CT HEAD/BRAIN WO CON, 07/14/2024, 21:13. FINDINGS: Image quality: Diagnostic. CSF spaces: Basal cisterns are patent. No extra-axial fluid collections. The ventricles are symmetric in size and shape. Brain: No intracranial bleeds or masses. There is cerebral volume loss for age, with resultant ventricular and sulcal prominence. There are periventricular and deep white matter chronic small vessel ischemic changes. There is intracranial internal carotid artery atherosclerosis. Skull and face: Calvarium and visualized facial bones appear intact, without suspicious lesions. Sinuses: Visualized sinuses and mastoids are clear. IMPRESSION: 1. No acute intracranial pathology. 2. No significant changes from previous studies. Dictated by: Wilfredo Domingo M.D. on 07/20/2024 at 16:39 Approved by: Wilfredo Domingo M.D. on 07/20/2024 at 16:42
--- NOTE | 2024-07-20 16:11 | DI.CT.S_ITS ---
PROCEDURE: CT CERVICAL SPINE WO CON INDICATIONS: altered mental status, fall TECHNIQUE: Noncontrast 3 mm thick sections acquired from the skull base to the T4 level. Sagittal and coronal reformats were then constructed. For radiation dose reduction, the following was used: automated exposure control, adjustment of mA and/or kV according to patient size. COMPARISON: [facility], CT, CT CERVICAL SPINE WO CON, 07/08/2024, 8:19. FINDINGS: Image quality: Excellent. Bones: No fractures or dislocations. There is 2 mm anterolisthesis of C3 on C4 unchanged from prior study. Loss of disc height, degenerative endplate changes and bilateral uncovertebral hypertrophic changes are noted throughout cervical spine causing [id number] central canal stenosis and bilateral neural foraminal narrowing more notably at C5-6 and C6-7 levels. Visualized superior ribs are intact. Soft tissues: Prevertebral soft tissues are normal in thickness. No paravertebral hematomas. No apical pneumothoraces. IMPRESSION: 1. No acute cervical spine fracture or dislocation. 2. Degenerative disc disease throughout cervical spine not significantly changed from previous study. Dictated by: Wilfredo Domingo M.D. on 07/20/2024 at 16:53 Approved by: Wilfredo Domingo M.D. on 07/20/2024 at 16:54
--- NOTE | 2024-07-20 16:19 | ED.AMS ---
HPI - Altered Mental Status General Chief Complaint: Altered Mental Status Stated Complaint: mechanical GLF Time Seen by Provider: 07/20/24 16:06 Source: patient, EMS, RN notes reviewed and old records reviewed Mode of arrival: EMS Limitations: altered mental status History of Present Illness HPI narrative: 74-year-old female with history of anxiety, PTSD, COPD with recent admission for altered mental status patient discharged with suspected iatrogenic changes from her home medications including benzos and narcotics, patient admitted on 07/14/2024 and discharged on 07/15/2024. Patient can tell me her name she can indicate she was in the hospital she does not appear confused she falls asleep easily, she has requiring a little bit of oxygen per EMS this is not her baseline. She had a fall today did hit her head sounds like she was altered before she fell. She denies any pain currently, she does not complain of any shortness of breath, no nausea or vomiting reported no other GI or urinary symptoms reported. Patient appears to be taking morphine 15 mg twice daily along with gabapentin, cyclobenzaprine, clonazepam according to her medication list from [employer] It appears she has been getting these medications including today. Related Data Home Medications Medication Instructions Recorded Confirmed albuterol sulfate 90 mcg/actuation 0.09 mg IH BID ##0 01/15/12 07/20/24 aerosol inhaler (Proventil HFA) fluticasone propionate 220 1 puff INH Q DAY ##12 08/14/12 07/20/24 mcg/actuation HFA aerosol inhaler (Flovent HFA) colesevelam 625 mg tablet 625 mg PO BID 02/11/24 07/20/24 cyclobenzaprine 10 mg tablet 10 mg PO BID 02/11/24 07/20/24 duloxetine 60 mg capsule,delayed 60 mg PO BID 02/11/24 07/20/24 release lubiprostone 24 mcg capsule 24 mcg PO DAILY 02/11/24 07/20/24 (Amitiza) montelukast 10 mg tablet 10 mg PO DAILY 02/11/24 07/20/24 benzonatate 200 mg capsule 200 mg PO BID PRN Cough 07/08/24 07/20/24 cholecalciferol (vitamin D3) 125 125 mcg PO DAILY 07/08/24 07/20/24 mcg (5,000 unit) tablet (Vitamin D3) clonazepam 0.5 mg tablet 0.5 mg PO BEDTIME 07/08/24 07/20/24 cyclosporine 0.05 % eye drops in a 0.05 drp EYE-BOTH BID 07/08/24 07/20/24 dropperette (Restasis) ferrous sulfate 325 mg (65 mg 325 mg PO DAILY 07/08/24 07/20/24 iron) tablet gabapentin 600 mg tablet 600 mg PO TID 07/08/24 07/20/24 ipratropium bromide 21 mcg (0.03 0.06 spray intranasal TID 07/08/24 07/20/24 %) nasal spray tiotropium bromide 2.5 2 inh inhalation QAM 07/08/24 07/20/24 mcg/actuation mist for inhalation (Spiriva Respimat) triamcinolone acetonide 0.1 % 0.5 applic topical BID 07/08/24 07/20/24 topical ointment naloxone 4 mg/actuation nasal 1 spray intranasal NOW PRN overdose 07/20/24 07/20/24 spray (Narcan) trazodone 100 mg tablet 100 mg PO HS 07/20/24 07/20/24 Allergies Allergy/AdvReac Type Severity Reaction Status Date / Time imipramine [IMIPRAMINE] Allergy Severe throat Verified 07/20/24 16:03 swelling influenza virus vaccine, Allergy Severe arm and Verified 07/20/24 16:03 specific body [INFLUENZA VIRUS swelling VACC,SPECIFIC] pneumococcal vaccine Allergy Severe body Verified 07/20/24 16:03 [PNEUMOCOCCAL VACCINE] swelling eucalyptus [EUCALYPTUS] Allergy Mild Verified 07/20/24 16:03 oxycodone [OXYCODONE] AdvReac Severe panic Verified 07/20/24 16:03 feeling rasagiline [From AZILECT] AdvReac Severe suicidal Verified 07/20/24 16:03 carbidopa [CARBIDOPA] AdvReac Mild nausea & Verified 07/20/24 16:03 vomiting Sulfa (Sulfonamide AdvReac Mild n/v Verified 07/20/24 16:03 Antibiotics) [SULFA (SULFONAMIDE ANTIBIOTICS)] sulfacetamide [SULFACETAMIDE] AdvReac Mild n/v Verified 07/20/24 16:03 TOMATOES Allergy Mild N/V Uncoded 07/20/24 16:03 TORFANIL Allergy Unknown PER PT Uncoded 07/20/24 16:03 Review of Systems Review of Systems ROS Unobtainable: All systems reviewed & are unremarkable except as noted in HPI and below Patient History Social History household members: other Smoking Status: Current every day smoker alcohol intake: former Smoking Status: Current every day smoker tobacco type: cigarettes alcohol intake frequency: 0-2 drinks per day Substance Use Type: does not use Exam Narrative Exam Narrative: GEN: Obese female, alert and oriented x 3, patient appears to be in mild distress. HEENT: Atraumatic, pupils are approximately 2-3 mm but round, reactive and equal to light, extraocular movements are intact, nares are clear, TMs are clear with no fluid, there is no conjunctival pallor. Throat is clear without any exudates, erythema, tonsillar enlargement or uvular deviation, HEART: Regular rate and rhythm without murmur, clicks, rubs. Pulses are equal in upper and lower extremities LUNGS:Lungs clear to auscultation, no wheezes, rales, crackles, chest moves symmetrically ABD:bowel sounds normal, soft, non-tender, no guarding, rebound, rigidity, no masses noted, no hepatosplenomegaly :No CVA tenderness MSCL: Non-tender, no muscle atrophy, muscles strength 5/5 upper and lower extremities, full range of motion. NEURO:CN 2-12 intact, sensation normal SKIN: No rash, no erythema or other skin changes noted Initial Vital Signs Initial Vital Signs: Vital Signs Temperature 97.8 F 07/20/24 16:00 Pulse Rate 73 07/20/24 16:00 Respiratory Rate 18 07/20/24 16:00 Blood Pressure 112/57 L 07/20/24 16:00 Pulse Oximetry 88 L 07/20/24 16:00 Oxygen Delivery Method Room Air 07/20/24 16:00 Scores GCS [place] coma scale eye opening: Spontaneous [place] coma scale verbal response: Confused [place] coma scale motor response: Obey commands [place] coma scale total score: 14 Course Orders Ordered: Acetaminophen (Acetaminophen 325 Mg Tablet) 650 mg PO Q6H PRN PRN Reason: Fever/Mild Pain (1-3) Enoxaparin Sodium (Enoxaparin 40 Mg/0.4 Ml Syringe) 40 mg SUBCUT DAILY PERRY Naloxone HCl 2 mg/ Sodium (Chloride) 500 mls @ 62.5 mls/hr IV TITRATE PERRY; Protocol Last Admin: 07/21/24 03:22 Dose: 0.25 mg/hr, 62.5 mls/hr Documented By: Titration: 07/21/24 02:52 Dose: Infused Documented By: Titration: 07/20/24 19:35 Dose: 0.25 mg/hr, 62.5 mls/hr Documented By: Admin: 07/20/24 18:51 Dose: 0.25 mg/hr, 62.5 mls/hr Documented By: ERNIE Ondansetron HCl (Ondansetron 4 Mg/2 Ml Inj) 4 mg IV Q8HR PRN PRN Reason: Nausea And Vomiting Discontinued Medications Aspirin (Aspirin 81 Mg Chew Tab) 324 mg PO NOW ONE Stop: 07/20/24 16:11 Last Admin: 07/20/24 18:13 Dose: Not Given Documented By: ERNIE Naloxone HCl (Naloxone 0.4 Mg/Ml Vial) 0.2 mg IV Q2MIN PRN PRN Reason: Opiate Reversal Last Admin: 07/20/24 18:33 Dose: 0.2 mg Documented By: Admin: 07/20/24 16:50 Dose: 0.2 mg Documented By: Admin: 07/20/24 16:43 Dose: 0.2 mg Documented By: ERNIE Vital Signs Vital signs: Vital Signs - 8 hr 07/20/24 16:00 07/20/24 16:06 07/20/24 16:31 Temperature 97.8 F Pulse Rate 73 72 71 Respiratory Rate 18 30 H Blood Pressure 112/57 L Pulse Oximetry 88 L 94 96 Oxygen Delivery Method Room Air Room Air 07/20/24 17:00 07/20/24 17:03 07/20/24 17:03 Temperature Pulse Rate 81 Respiratory Rate 30 H 28 H Blood Pressure 113/68 Pulse Oximetry 93 95 Oxygen Delivery Method 07/20/24 17:30 07/20/24 17:37 07/20/24 17:37 Temperature Pulse Rate 67 66 Respiratory Rate 25 H Blood Pressure 127/79 Pulse Oximetry 94 93 Oxygen Delivery Method MDM - Altered Mental Status Lab Data 07/21/24 06:05 07/21/24 06:05 Labs: Lab Results 07/20/24 07/20/24 Range/Units 16:20 16:20 WBC 9.3 (4.5-11.0) X10^3/uL RBC 4.17 (4.0-5.2) X10^6/uL Hgb 14.4 (12.0-16.0) g/dL Hct 42.7 (36-46) % MCV 102.4 H (80-100) fL MCH 34.4 H (26-34) PG MCHC 33.6 (30-36) % RDW 14.2 (11.6-14.8) % Plt Count 262 (150-400) X10^3/uL Neut % (Auto) 63.9 (50-75) % Lymph % (Auto) 22.8 L (25-40) % Brantley % (Auto) 9.2 (3-14) % Eos % (Auto) 3.1 (2-4) % Baso % (Auto) 1.0 (0-2) % Neut # (Auto) 5900 (7174-5584) /uL Lymph # (Auto) 2100 (9013-5173) /uL Brantley # (Auto) 900 (0-900) /uL Eos # (Auto) 300 (0-450) /uL Baso # (Auto) 100 (0-100) /uL Platelet Estimate Adequate on smear RBC Morphology Normal morphology PT 10.6 (9.4-12.5) SECONDS INR 0.9 (0.9-1.3) APTT 23 L (25.1-36.5) SECONDS Sodium 135 L (137-145) mmol/L Potassium 4.2 (3.4-5.1) mmol/L Chloride 102 (98-107) mmol/L Carbon Dioxide 29 (22-32) mmol/L BUN 11 (7-17) mg/dL Creatinine 0.70 (0.52-1.04) mg/dL Estimated GFR > 60 (>60) mL/min BUN/Creatinine Ratio 15.7 (6-22) Glucose 87 (80-110) mg/dL Calcium 9.3 (8.4-10.2) mg/dL Magnesium 2.2 (1.6-2.3) mg/dL Total Bilirubin 0.7 (0.2-1.3) mg/dL AST 49 H (14-36) IU/L ALT 22 (<35) IU/L Alkaline Phosphatase 82 (38-126) U/L Total Creatine Kinase 620 H (30-135) U/L Troponin I < 0.012 (0.01-0.034) ng/mL NT-Pro-B Natriuret Pep 230 H 233 H (<125) pg/mL Total Protein 6.8 (6.3-8.2) g/dL Albumin 3.8 (3.5-5.0) g/dL Globulin 3.0 (1.7-4.1) g/dL Albumin/Globulin Ratio 1.3 (1.0-2.8) Lipase 40 (23-300) U/L Point of Care Testing Glucose POC [address] scan - head: Radiologist's Impression: Suze Desai??74??F??1950 ? Allergy/Adv: imipramine, influenza virus vaccine, specific, pneumococcal vaccine, eucalyptus, oxycodone, rasagiline, carbidopa, Sulfa (Sulfonamide Antibiotics), sulfacetamide, [TOMATOES], [TORFANIL] (More??) Close Head CT (Signed) Wilfredo Domingo - 07/20/24 Chest X-Ray (Signed) Wilfredo Domingo - 07/20/[address] (Signed) Wilfredo Domingo - 07/20/[address] (Signed) Leander Nettles - 07/14/[address] (Signed) Robin Grullon - 07/14/24 Chest X-Ray (Signed) Robin Grullon - 07/14/24 Elbow X-Ray (Signed) Carlos A Lino - 07/09/24 Shoulder X-Ray (Signed) Carlos A Lino - 07/09/24 Chest/Abdomen/Pelvis CT (Signed) Antonino Costello - 07/08/[address] (Signed) Antonino Costello - 07/08/[address] (Signed) Antonino Costello - 07/08/24 Chest X-Ray (Signed) Antonino Costello - 07/08/24 Hip X-Ray (Signed) Antonino Costello - 07/08/24 Chest X-Ray (Signed) Antonino Costello - 04/05/24 Chest X-Ray (Signed) Leander Nettles - 03/24/24 Chest X-Ray (Signed) Jason Croft - 03/21/[address] (Signed) Jason Croft - 03/21/[address] (Signed) Jason Croft - 03/21/24 Abdomen/Pelvis CT (Signed) Riley John - 02/04/24 Launch?Image [address] [address] [address] Scan Report Signed Patient: Suze Desai MR#: [id number] : 1950 Acct:[id number] Age/Sex: 74 / F Date of Service: 07/20/24 Loc: ED Accession Number: [id number] Procedure: CT head/brain wo con Ordering Provider: Mabel Trent D.O. PROCEDURE: CT HEAD/BRAIN WO CON INDICATIONS: altered mental status, fall TECHNIQUE: Noncontrast 4.5 mm thick angled axial sections acquired from the foramen magnum to the vertex, with coronal and sagittal reformats. For radiation dose reduction, the following was used: automated exposure control, adjustment of mA and/or kV according to patient size. COMPARISON: [facility], CT, CT HEAD/BRAIN WO CON, 03/21/2024, 15:33. [facility], CT, CT HEAD/BRAIN WO CON, 07/08/2024, 8:19. [facility], CT, CT HEAD/BRAIN WO CON, 07/14/2024, 21:13. FINDINGS: Image quality: Diagnostic. CSF spaces: Basal cisterns are patent. No extra-axial fluid collections. The ventricles are symmetric in size and shape. Brain: No intracranial bleeds or masses. There is cerebral volume loss for age, with resultant ventricular and sulcal prominence. There are periventricular and deep white matter chronic small vessel ischemic changes. There is intracranial internal carotid artery atherosclerosis. Skull and face: Calvarium and visualized facial bones appear intact, without suspicious lesions. Sinuses: Visualized sinuses and mastoids are clear. IMPRESSION: 1. No acute intracranial pathology. 2. No significant changes from previous studies. Dictated by: Wilfredo Domingo M.D. on 07/20/2024 at 16:39 Approved by: Wilfredo Domingo M.D. on 07/20/2024 at 16:42 CT - cervical spine: Radiologist's Impression: Suze Desai??74??F??1950 ? Allergy/Adv: imipramine, influenza virus vaccine, specific, pneumococcal vaccine, eucalyptus, oxycodone, rasagiline, carbidopa, Sulfa (Sulfonamide Antibiotics), sulfacetamide, [TOMATOES], [TORFANIL] (More??) Close Head CT (Signed) Wilfredo Domingo - 07/20/24 Chest X-Ray (Signed) Wilfredo Domingo - 07/20/[address] (Signed) Wilfredo Domingo - 07/20/[address] (Signed) Leander Nettles - 07/14/[address] (Signed) Robin Grullon - 07/14/24 Chest X-Ray (Signed) Robin Grullon - 07/14/24 Elbow X-Ray (Signed) Carlos A Lino - 07/09/24 Shoulder X-Ray (Signed) Carlos A Lino - 07/09/24 Chest/Abdomen/Pelvis CT (Signed) Antonino Costello - 07/08/[address] (Signed) Antonino Costello - 07/08/[address] (Signed) Antonino Costello - 07/08/24 Chest X-Ray (Signed) Antonino Costello - 07/08/24 Hip X-Ray (Signed) Antonino Costello - 07/08/24 Chest X-Ray (Signed) Antonino Costello - 04/05/24 Chest X-Ray (Signed) Leander Nettles - 03/24/24 Chest X-Ray (Signed) Jason Croft - 03/21/[address] (Signed) Jason Croft - 03/21/[address] (Signed) Jason Croft - 03/21/24 Abdomen/Pelvis CT (Signed) Riley John - 02/04/24 Launch?[place] [address] CT Scan Report Signed Patient: Suze Desai MR#: [id number] : 1950 Acct:[id number] Age/Sex: 74 / F Date of Service: 07/20/24 Loc: ED Accession Number: [id number] Procedure: CT cervical spine wo con Ordering Provider: Mabel Trent D.O. PROCEDURE: CT CERVICAL SPINE WO CON INDICATIONS: altered mental status, fall TECHNIQUE: Noncontrast 3 mm thick sections acquired from the skull base to the T4 level. Sagittal and coronal reformats were then constructed. For radiation dose reduction, the following was used: automated exposure control, adjustment of mA and/or kV according to patient size. COMPARISON: [facility], CT, CT CERVICAL SPINE WO CON, 07/08/2024, 8:19. FINDINGS: Image quality: Excellent. Bones: No fractures or dislocations. There is 2 mm anterolisthesis of C3 on C4 unchanged from prior study. Loss of disc height, degenerative endplate changes and bilateral uncovertebral hypertrophic changes are noted throughout cervical spine causing [id number] central canal stenosis and bilateral neural foraminal narrowing more notably at C5-6 and C6-7 levels. Visualized superior ribs are intact. Soft tissues: Prevertebral soft tissues are normal in thickness. No paravertebral hematomas. No apical pneumothoraces. IMPRESSION: 1. No acute cervical spine fracture or dislocation. 2. Degenerative disc disease throughout cervical spine not significantly changed from previous study. Dictated by: Wilfredo Domingo M.D. on 07/20/2024 at 16:53 Approved by: Wilfredo Domingo M.D. on 07/20/2024 at 16:54 Chest x-ray: Radiologist's Impression: Suze Desai??74??F??1950 ? Allergy/Adv: imipramine, influenza virus vaccine, specific, pneumococcal vaccine, eucalyptus, oxycodone, rasagiline, carbidopa, Sulfa (Sulfonamide Antibiotics), sulfacetamide, [TOMATOES], [TORFANIL] (More??) Close Head CT (Signed) Wilfredo Domingo - 07/20/24 Chest X-Ray (Signed) Wilfredo Domingo - 07/20/[address] (Signed) Wilfredo Domingo 07/20/[address] (Signed) Leander Nettles - 07/14/[address] (Signed) Robin Grullon - 07/14/24 Chest X-Ray (Signed) Robin Grullon - 07/14/24 Elbow X-Ray (Signed) Carlos A Lino - 07/09/24 Shoulder X-Ray (Signed) Carlos A Lino - 07/09/24 Chest/Abdomen/Pelvis CT (Signed) Antonino Costello - 07/08/[address] (Signed) Antonino Costello - 07/08/[address] (Signed) Antonino Costello - 07/08/24 Chest X-Ray (Signed) Antonino Costello - 07/08/24 Hip X-Ray (Signed) Antonino Costello - 07/08/24 Chest X-Ray (Signed) Antonino Costello - 04/05/24 Chest X-Ray (Signed) Leander Nettles - 03/24/24 Chest X-Ray (Signed) Jason Croft - 03/21/[address] (Signed) Jason Croft - 03/21/[address] (Signed) CroftJason - 03/21/24 Abdomen/Pelvis CT (Signed) Riley John - 02/04/24 Launch?[facility] [address] [address] [address] Scan Report Signed Patient: Suze Desai MR#: [id number] : 1950 Acct:[id number] Age/Sex: 74 / F Date of Service: 07/20/24 Loc: ED Accession Number: [id number] Procedure: CT cervical spine wo con Ordering Provider: Mabel Trent D.O. PROCEDURE: CT CERVICAL SPINE WO CON INDICATIONS: altered mental status, fall TECHNIQUE: Noncontrast 3 mm thick sections acquired from the skull base to the T4 level. Sagittal and coronal reformats were then constructed. For radiation dose reduction, the following was used: automated exposure control, adjustment of mA and/or kV according to patient size. COMPARISON: [facility], CT, CT CERVICAL SPINE WO CON, 07/08/2024, 8:19. FINDINGS: Image quality: Excellent. Bones: No fractures or dislocations. There is 2 mm anterolisthesis of C3 on C4 unchanged from prior study. Loss of disc height, degenerative endplate changes and bilateral uncovertebral hypertrophic changes are noted throughout cervical spine causing [id number] central canal stenosis and bilateral neural foraminal narrowing more notably at C5-6 and C6-7 levels. Visualized superior ribs are intact. Soft tissues: Prevertebral soft tissues are normal in thickness. No paravertebral hematomas. No apical pneumothoraces. IMPRESSION: 1. No acute cervical spine fracture or dislocation. 2. Degenerative disc disease throughout cervical spine not significantly changed from previous study. Dictated by: Wilfredo Domingo M.D. on 07/20/2024 at 16:53 Approved by: Wilfredo Domingo M.D. on 07/20/2024 at 16:54 ECG Data Attestation: I personally reviewed and interpreted this ECG as follows: Prior ECG tracings: available for review Interpretation: Sinus rhythm with a rate of 72 VT 126 QRS is 74 QTC of 446, no acute ST elevation patient has flattened T-waves lateral leads inverted T-waves slightly V4 5 and 6. Patient has prior from 03/21/2024 with slightly inverted T-waves in V4 5 6 compared to no acute ST elevations. MDM Narrative Medical decision making narrative: 74 year old female who was just here recently with admission for likely polysubstance overdose. Patient presents very similarly. Workup does not show any acute change to head CT or chest x-ray labs are overall reassuring. Patient responded very quickly to 0.4mg narcan. Patient was monitored for hour plus to make sure she did not require any oxygen. Reached out to nursing facility she received morphine 15 mg this morning, clonazepam 0.5, cyclobenzaprine 10 mg, duloxetine 60 mg gabapentin 1200 mg received additional dose of gabapentin 1200 mg of clonazepam at noon today. Nursing facility told nurse that they were stopping her morphine after having consulted with pain management. They had not stopped it yet. Patient became sleepy again once and requiring O2 again. Received a 3rd dose of Narcan. Spoke with Dr. Quiñonez who accepts for admission with Narcan drip. Dr. Quiñonez saw patient in the department. Critical Care Time Critical Care Time Critical Care Time: Yes Total Critical Care Time: 35 Attestation: The high probability of a clinically significant, sudden or life threatening deterioration of the cardiac, pulm system(s) required my full and direct attention, intervention and personal management. The aggregate critical care time was [--] minutes. This time is in addition to time spent performing reported procedures but includes the following: [x] Data Review and interpretation [x] Patient assessment and monitoring of vital signs [x] Documentation [x] Medication orders and management Discharge Plan Departure Patient Disposition: Admitted As Inpatient Clinical Impression: Polysubstance overdose Admit Date/Time: 09/17/24 18:43 Admit Provider: Frank Quiñonez
[2024-07-20 16:39] LABS: INR 0.9 (0.9-1.3); Prothrombin Time 10.6 SECONDS (9.4-12.5)
[2024-07-20 16:41] LABS: PTT Partial Thromboplastin Tim 23 SECONDS (25.1-36.5)
[2024-07-20] MEDS: NALOXONE 0.4 MG/ML VIAL 0.2 MG IV ×3 (16:43→18:33)
[2024-07-20 17:02] LABS: Alanine Aminotransferase 22 IU/L (<35); Albumin 3.8 g/dL (3.5-5.0); Albumin Globulin Ratio 1.3 (1.0-2.8); Alkaline Phosphatase 82 U/L (38-126); Aspartate Aminotransferase 49 IU/L (14-36); BUN Creatinine Ratio 15.7 (6-22); Bilirubin Total 0.7 mg/dL (0.2-1.3); Blood Urea Nitrogen 11 mg/dL (7-17); Calcium 9.3 mg/dL (8.4-10.2); Carbon Dioxide 29 mmol/L (22-32); Chloride 102 mmol/L (98-107); Creatine Kinase 620 U/L (30-135); Estimated Glomerular Filt Rate > 60 mL/min (>60); Glucose 87 mg/dL (80-110); Lipase 40 U/L (23-300); Magnesium 2.2 mg/dL (1.6-2.3); Sodium 135 mmol/L (137-145); Total Protein 6.8 g/dL (6.3-8.2)
[2024-07-20 17:03] LABS: HEMOLYSIS 83 (0-50); Potassium 4.2 mmol/L (3.4-5.1)
[2024-07-20 17:04] LABS: Basophils Absolute Auto 100 /uL (0-100); Eosinophils Absolute Auto 300 /uL (0-450); Eosinophils Percent Auto 3.1 % (2-4); Hematocrit 42.7 % (36-46); Hemoglobin 14.4 g/dL (12.0-16.0); Lymphocytes Absolute Auto 2100 /uL (1100-4500); Lymphocytes Percent Auto 22.8 % (25-40); Mean Corpuscular HGB Conc 33.6 % (30-36); Mean Corpuscular Hemoglobin 34.4 PG (26-34); Mean Corpuscular Volume 102.4 fL (80-100); Monocytes Absolute Auto 900 /uL (0-900); Monocytes Percent Auto 9.2 % (3-14); Neutrophils Absolute Auto 5900 /uL (1500-7000); Neutrophils Percent Auto 63.9 % (50-75); Platelet Count 262 X10^3/uL (150-400); Red Blood Cell Count 4.17 X10^6/uL (4.0-5.2); Red Cell Distribution Width 14.2 % (11.6-14.8); White Blood Cell Count 9.3 X10^3/uL (4.5-11.0)
[2024-07-20 17:07] LABS: Add Manual Diff / Slide Review SLIDE REVIEW; Platelet Estimate Adequate on smear; RBC Morphology Normal Morphology
--- NOTE | 2024-07-20 17:09 | PC.NURSE ---
Patient upon arrival was displaying decreased responsiveness and was unable to tell this RN her full name before dozing off. Patient requiring 2.5L NC, at facility does not use oxygen. Per her facility she was satting low 80's to 90. Provider at bedside ordered narcan, see MAR. Patient after giving med is talking in full sentences and states I think im ready to go back home now
[2024-07-20 17:12] LABS: NT-proBNP (BNP-Adult 18+) 233 pg/mL (<125)
[2024-07-20 17:14] LABS: NT-proBNP (BNP-Adult 18+) 230 pg/mL (<125); Troponin I < 0.012 ng/mL (0.01-0.034)
--- NOTE | 2024-07-20 18:50 | P.HP_ITS ---
History of Present Illness History of Present Illness Date Patient Seen: 07/20/24 Time Patient Seen: 18:45 Chief complaint: mechanical GLF Narrative: 74-year-old female with history of anxiety, PTSD, COPD with recent admission for altered mental status after another recent admission for UTI with acute metabolic encephalopathy. Patient was discharged with suspected iatrogenic changes from her home medications including benzos and narcotics. She had a fall today again at her assisted living facility. She was sluggish and lethargic in the ER. Oxygenation improved with narcan administration, but required another dose and then became lethargic again a 3rd time and was placed on a narcan infusion admitted to the ICU for further management. Patient was seen in the ER, unable to reliably tell history at that time due to lethargy. Largely taken from discussion with ER provider. [facility] Social History household members: other Smoking Status: Current every day smoker alcohol intake: former Meds Home Medications and Allergies Home Medications Medication Instructions Recorded Confirmed Type albuterol sulfate 90 mcg/actuation 0.09 mg IH BID ##0 01/15/12 07/14/24 History aerosol inhaler (Proventil HFA) fluticasone propionate 220 1 puff INH Q DAY ##12 08/14/12 07/14/24 History mcg/actuation HFA aerosol inhaler (Flovent HFA) clonazepam 0.5 mg tablet (Klonopin) 0.5 mg PO Q6HP #90 tabs 10/22/16 07/14/24 Rx trazodone 100 mg tablet 100 - 200 mg (1 - 2 x 100 mg) PO 01/15/17 07/14/24 Rx HS #30 tabs colesevelam 625 mg tablet 625 mg PO BID 02/11/24 07/14/24 History cyclobenzaprine 10 mg tablet 10 mg PO BID 02/11/24 07/14/24 History duloxetine 60 mg capsule,delayed 60 mg PO BID 02/11/24 07/14/24 History release lubiprostone 24 mcg capsule 24 mcg PO DAILY 02/11/24 07/14/24 History (Amitiza) montelukast 10 mg tablet 10 mg PO DAILY 02/11/24 07/14/24 History benzonatate 200 mg capsule 200 mg PO BID PRN Cough 07/08/24 07/14/24 History cholecalciferol (vitamin D3) 125 125 mcg PO DAILY 07/08/24 07/14/24 History mcg (5,000 unit) tablet (Vitamin D3) clonazepam 0.5 mg tablet 0.5 mg PO BEDTIME 07/08/24 07/14/24 History cyclosporine 0.05 % eye drops in a 0.05 drp EYE-BOTH BID 07/08/24 07/14/24 History dropperette (Restasis) ferrous sulfate 325 mg (65 mg 325 mg PO DAILY 07/08/24 07/14/24 History iron) tablet gabapentin 600 mg tablet 600 mg PO TID 07/08/24 07/14/24 History ipratropium bromide 21 mcg (0.03 0.06 spray intranasal TID 07/08/24 07/14/24 History %) nasal spray morphine 15 mg immediate release 15 mg PO BID 07/08/24 07/14/24 History tablet tiotropium bromide 2.5 2 inh inhalation QAM 07/08/24 07/14/24 History mcg/actuation mist for inhalation (Spiriva Respimat) triamcinolone acetonide 0.1 % 0.5 applic topical BID 07/08/24 07/14/24 History topical ointment Allergies Allergy/AdvReac Type Severity Reaction Status Date / Time imipramine [IMIPRAMINE] Allergy Severe throat Verified 07/20/24 16:03 swelling influenza virus vaccine, Allergy Severe arm and Verified 07/20/24 16:03 specific body [INFLUENZA VIRUS swelling VACC,SPECIFIC] pneumococcal vaccine Allergy Severe body Verified 07/20/24 16:03 [PNEUMOCOCCAL VACCINE] swelling eucalyptus [EUCALYPTUS] Allergy Mild Verified 07/20/24 16:03 oxycodone [OXYCODONE] AdvReac Severe panic Verified 07/20/24 16:03 feeling rasagiline [From AZILECT] AdvReac Severe suicidal Verified 07/20/24 16:03 carbidopa [CARBIDOPA] AdvReac Mild nausea & Verified 07/20/24 16:03 vomiting Sulfa (Sulfonamide AdvReac Mild n/v Verified 07/20/24 16:03 Antibiotics) [SULFA (SULFONAMIDE ANTIBIOTICS)] sulfacetamide [SULFACETAMIDE] AdvReac Mild n/v Verified 07/20/24 16:03 TOMATOES Allergy Mild N/V Uncoded 07/20/24 16:03 TORFANIL Allergy Unknown PER PT Uncoded 07/20/24 16:03 Review of Systems Review of Systems Narrative: Unable to perform. Exam Vital Signs (past 8 hours): - 07/20/24 16:00 07/20/24 16:06 07/20/24 16:31 Temperature 97.8 F Pulse Rate 73 72 71 Respiratory Rate 18 30 H Blood Pressure 112/57 L Pulse Oximetry 88 L 94 96 Oxygen Delivery Method Room Air Room Air 07/20/24 17:00 07/20/24 17:03 07/20/24 17:03 Temperature Pulse Rate 81 Respiratory Rate 30 H 28 H Blood Pressure 113/68 Pulse Oximetry 93 95 Oxygen Delivery Method 07/20/24 17:30 07/20/24 17:37 07/20/24 17:37 Temperature Pulse Rate 67 66 Respiratory Rate 25 H Blood Pressure 127/79 Pulse Oximetry 94 93 Oxygen Delivery Method Oxygen Delivery Method Room Air Narrative Exam Narrative: general: lethargic, falling asleep easily but alert oriented to name, slow speech lung: normal effort, CTA B/L cardio: RRR Abd: soft, non-tender Neuro: no obvious focal deficits Objective ECG Impression: Sinus rhythm with premature atrial complexes, no acute ischemia, similar to prior tracings as interpreted by me. Labs 07/20/24 16:20 07/20/24 16:20 Labs: Laboratory Results - last 24 hr 07/20/24 07/20/24 16:20 16:20 WBC 9.3 RBC 4.17 Hgb 14.4 Hct 42.7 MCV 102.4 H MCH 34.4 H MCHC 33.6 RDW 14.2 Plt Count 262 Neut % (Auto) 63.9 Lymph % (Auto) 22.8 L [place] % (Auto) 9.2 Eos % (Auto) 3.1 Baso % (Auto) 1.0 Neut # (Auto) 5900 Lymph # (Auto) 2100 [place] # (Auto) 900 Eos # (Auto) 300 Baso # (Auto) 100 Platelet Estimate Adequate on smear RBC Morphology Normal morphology PT 10.6 INR 0.9 APTT 23 L Sodium 135 L Potassium 4.2 Chloride 102 Carbon Dioxide 29 BUN 11 Creatinine 0.70 Estimated GFR > 60 BUN/Creatinine Ratio 15.7 Glucose 87 Calcium 9.3 Magnesium 2.2 Total Bilirubin 0.7 AST 49 H ALT 22 Alkaline Phosphatase 82 Total Creatine Kinase 620 H Troponin I < 0.012 NT-Pro-B Natriuret Pep 230 H 233 H Total Protein 6.8 Albumin 3.8 Globulin 3.0 Albumin/Globulin Ratio 1.3 Lipase 40 Assessment & Plan Assessment & Plan narrative: 1. Toxic encephalopathy due to opiate overdose, unintentional / iatrogenic, present on admission - continue narcan infusion overnight, then attempt to come off to await for morphine and benzos to clear - stop morphine for now, reduce benzos but may not need will monitor - no leukocytosis or other evidence of infection. 2. Acute respiratory failure with hypoxia secondary to #1 - continue narcan infusion as above - ABG reported to me to not show hypercapnea by ER provider - goal O2 90-96% on supplemental therapy. - RT eval and treat order 3. Anxiety and PTSD, present on admission and stable. - hold home benzo for now - continue duloxetine and gabapentin. - cyclobenzaprine will change to PRN 4. COPD without exacerbation - RT eval and treat - replace home inhalers with formulary nebs. CODE STATUS: The patient shares that she is DNR status. Her sister lives in [place], and is proxy decision maker. Dispo: Admit to ICU for narcan infusion I have utilized all available immediate resources to obtain, update, or review the patient's current medications. I spent 35 minutes providing critical care management this patient. This excludes time spent in performing separately billed procedures. Time-Based Coding :: [TOTAL MINUTES] spent with patient and on the chart (including review of chart, obtaining history, exam, reviewing outside data, placing orders, documenting exam and treatment plan, and counseling patient) on [DATE].
[2024-07-20] MEDS: NALOXONE 2 MG in SODIUM CHLORIDE 0.9% 500 ML 62.5 MG IV (18:51)
--- NOTE | 2024-07-20 20:30 | PC.NURSE ---
Patient came in from ED with no dentures.
[2024-07-20 21:34] LABS: MRSA (Nasal) PCR NOT DETECTED (Not Detect)
[2024-07-21] VITALS (55 sets, daily range): BP systolic 113–147; BP diastolic 52–98; PULSE 59–93; RESP 16–47; TEMP 36.2–37; O2SAT 89–99
[2024-07-21] MEDS: NALOXONE 2 MG in SODIUM CHLORIDE 0.9% 500 ML 62.5 MG IV (03:22)
[2024-07-21 06:45] LABS: Add Manual Diff / Slide Review NO; Basophils Absolute Auto 0 /uL (0-100); Basophils Percent Auto 0.5 % (0-2); Eosinophils Absolute Auto 200 /uL (0-450); Eosinophils Percent Auto 2.6 % (2-4); Hematocrit 37.2 % (36-46); Hemoglobin 12.4 g/dL (12.0-16.0); Lymphocytes Absolute Auto 1500 /uL (1100-4500); Lymphocytes Percent Auto 24.6 % (25-40); Mean Corpuscular HGB Conc 33.4 % (30-36); Mean Corpuscular Hemoglobin 34.2 PG (26-34); Mean Corpuscular Volume 102.4 fL (80-100); Monocytes Absolute Auto 500 /uL (0-900); Neutrophils Absolute Auto 3900 /uL (1500-7000); Neutrophils Percent Auto 63.3 % (50-75); Platelet Count 254 X10^3/uL (150-400); Red Blood Cell Count 3.64 X10^6/uL (4.0-5.2); Red Cell Distribution Width 13.7 % (11.6-14.8); White Blood Cell Count 6.1 X10^3/uL (4.5-11.0)
[2024-07-21 07:23] LABS: BUN Creatinine Ratio 16.1 (6-22); Blood Urea Nitrogen 9 mg/dL (7-17); Calcium 8.3 mg/dL (8.4-10.2); Carbon Dioxide 29 mmol/L (22-32); Chloride 104 mmol/L (98-107); Estimated Glomerular Filt Rate > 60 mL/min (>60); Glucose 91 mg/dL (80-110); HEMOLYSIS 23 (0-50); Potassium 3.6 mmol/L (3.4-5.1); Sodium 134 mmol/L (137-145)
[2024-07-21] MEDS: ENOXAPARIN 40 MG/0.4 ML SYRINGE SUBCUT (08:54)
--- NOTE | 2024-07-21 13:08 | P.PN_ITS ---
Subjective Subjective Interval history: 74 F here with iatrogenic opiate overdose. Improved with narcan infusion, narcan infusion now off. Still appears a bit confused compared to previous admissions. Exam Vital Signs (past 8 hours): - 07/21/24 05:30 07/21/24 06:00 07/21/24 06:01 Temperature Pulse Rate 59 L 73 Respiratory Rate 34 H Blood Pressure 128/98 H Pulse Oximetry 99 92 Oxygen Delivery Method 07/21/24 06:01 07/21/24 06:30 07/21/24 07:00 Temperature 97.8 F Pulse Rate 67 67 Respiratory Rate 30 H 28 H Blood Pressure Pulse Oximetry 92 92 Oxygen Delivery Method 07/21/24 07:00 07/21/24 07:01 07/21/24 07:01 Temperature Pulse Rate 68 68 Respiratory Rate 26 H 25 H Blood Pressure 147/65 H Pulse Oximetry 94 93 Oxygen Delivery Method 07/21/24 07:30 07/21/24 08:00 07/21/24 08:00 Temperature Pulse Rate 70 73 Respiratory Rate 26 H 17 Blood Pressure 134/65 Pulse Oximetry 93 95 Oxygen Delivery Method 07/21/24 08:00 07/21/24 08:30 07/21/24 09:00 Temperature Pulse Rate 81 80 Respiratory Rate 47 H 26 H Blood Pressure Pulse Oximetry 93 95 Oxygen Delivery Method Room Air 07/21/24 09:30 07/21/24 10:00 07/21/24 10:30 Temperature Pulse Rate 79 79 71 Respiratory Rate 19 Blood Pressure Pulse Oximetry 91 92 92 Oxygen Delivery Method 07/21/24 11:00 07/21/24 11:00 Temperature 97.6 F Pulse Rate 73 Respiratory Rate 16 Blood Pressure Pulse Oximetry 92 Oxygen Delivery Method Fraction of Inspired Oxygen 28 SaO2/FiO2 Ratio 342 Oxygen Delivery Method Room Air Oxygen Flow Rate 2 Narrative Exam Narrative: NAD, alert and oriented to name. Fluent speech. Lungs are clear, normal rate and effort. Heart is regular, no murmur gallop or rub. Abdomen is soft, non distended. Extremities are free of edema. Objective Labs 07/21/24 06:05 07/21/24 06:05 Labs: Laboratory Results - last 24 hr 07/20/24 07/20/24 07/20/24 16:20 16:20 20:00 WBC 9.3 RBC 4.17 Hgb 14.4 Hct 42.7 MCV 102.4 H MCH 34.4 H MCHC 33.6 RDW 14.2 Plt Count 262 Neut % (Auto) 63.9 Lymph % (Auto) 22.8 L [place] % (Auto) 9.2 Eos % (Auto) 3.1 Baso % (Auto) 1.0 Neut # (Auto) 5900 Lymph # (Auto) 2100 [place] # (Auto) 900 Eos # (Auto) 300 Baso # (Auto) 100 Platelet Estimate Adequate on smear RBC Morphology Normal morphology PT 10.6 INR 0.9 APTT 23 L Sodium 135 L Potassium 4.2 Chloride 102 Carbon Dioxide 29 BUN 11 Creatinine 0.70 Estimated GFR > 60 BUN/Creatinine Ratio 15.7 Glucose 87 Calcium 9.3 Magnesium 2.2 Total Bilirubin 0.7 AST 49 H ALT 22 Alkaline Phosphatase 82 Total Creatine Kinase 620 H Troponin I < 0.012 NT-Pro-B Natriuret Pep 230 H 233 H Total Protein 6.8 Albumin 3.8 Globulin 3.0 Albumin/Globulin Ratio 1.3 Lipase 40 Nasal Screen MRSA (PCR) Not detected 07/21/24 06:05 WBC 6.1 RBC 3.64 L Hgb 12.4 Hct 37.2 MCV 102.4 H MCH 34.2 H MCHC 33.4 RDW 13.7 Plt Count 254 Neut % (Auto) 63.3 Lymph % (Auto) 24.6 L [place] % (Auto) 9.0 Eos % (Auto) 2.6 Baso % (Auto) 0.5 Neut # (Auto) 3900 Lymph # (Auto) 1500 [place] # (Auto) 500 Eos # (Auto) 200 Baso # (Auto) 0 Platelet Estimate RBC Morphology PT INR APTT Sodium 134 L Potassium 3.6 Chloride 104 Carbon Dioxide 29 BUN 9 Creatinine 0.56 Estimated GFR > 60 BUN/Creatinine Ratio 16.1 Glucose 91 Calcium 8.3 L Magnesium 2.0 Total Bilirubin AST ALT Alkaline Phosphatase Total Creatine Kinase Troponin I NT-Pro-B Natriuret Pep Total Protein Albumin Globulin Albumin/Globulin Ratio Lipase Nasal Screen MRSA (PCR) [facility] Social History household members: other Smoking Status: Current every day smoker alcohol intake: former Assessment & Plan Assessment & Plan narrative: 1. Toxic encephalopathy due to opiate overdose, unintentional / iatrogenic, present on admission, improving - continued narcan infusion overnight, now off. Will continue to hold home morphine, benzos, and muscle relaxants today. Mentation is improving. Monitor for possible withdrawal. - no leukocytosis or other evidence of infection. - PT/OT ordered today 2. Acute respiratory failure with hypoxia secondary to #1 - continue narcan infusion as above - ABG reported to me to not show hypercapnea by ER provider - goal O2 90-96% on supplemental therapy. - RT eval and treat order - patient on spiriva, replace wtih duoneb scheduled today. 3. Anxiety and PTSD, present on admission and stable. - hold home benzo for now - continue duloxetine and gabapentin. - cyclobenzaprine will continue to hold, if spasm can change to prn. 4. COPD without exacerbation - RT eval and treat - replace home inhalers with formulary nebs. CODE STATUS: The patient shares that she is DNR status. Her sister lives in [place], and is proxy decision maker. Dispo: downgrade to acute care today. Inpatient. Likely discharge to assisted living vs SNF depending on PT/OT evaluation in 1-2 days. Additional history obtained via discussions with the bedside RN, and case management provider. These discussions contributed to the creation of the above assessment and plan. I have reviewed patient's presenting documentation, labs, and imaging personally. Time-Based Coding :: [TOTAL MINUTES] spent with patient and on the chart (including review of chart, obtaining history, exam, reviewing outside data, placing orders, documenting exam and treatment plan, and counseling patient) on [DATE].
--- NOTE | 2024-07-21 15:01 | CM.DANOTE ---
Initial DCP Assessment Note Pt is a 74 yo female, resident at [facility], arrives with Toxic encephalopathy due to opiate overdose, unintentional. This is patient's third admission in three weeks. PT ordered and pending today. PCP: Peggy Alves Payer: [facility] MCR/ELENI Reviewed chart, pt discussed in multidisciplinary rounds this morning. Patient had been close to discharging to [facility] H+R last admission although had inevitably improved enough for return to [facility]. Patient currently A+Ox1 per RN. This SHEAR TENDER unsure of patient's current cognitive baseline. Functional baseline is walking with walker, patient has hx of unsteadiness and falls. Placed call to [facility], spoke with Alli Renee [phone] ext [phone]. Updated that patient may be ready for DC 07/22, PT pending, and Alli agreeable to picking patient up at NH, transport in place tentatively for tomorrow afternoon. [facility] that patient's home and community services telehealth case manager is Bia Renee [phone]. Plan: Discharge back to [facility] if back to functional and cognitive baseline. If not, consider referral to [facility], auth needed. CM team following closely for coordination of discharge plan. MARC Mcdonough Discharge Planning/Care Management Advanced directive, confirm from FAMILY Start: 07/20/24 20:05 Freq: Q24H Status: Complete Protocol: Document 07/20/24 20:05 (Rec: 07/21/24 01:25 FM [id number]) Advance Directive, confirm on record Time 20:15 Person contacted Sara Barkley received No CM Discharge Assessment Start: 07/21/24 14:47 Freq: Status: Active Protocol: Document 07/21/24 14:50 JW (Rec: 07/21/24 15:01 JW [id number]) Discharge Planning Assessment Assigned Epic Kaleidoscope Analyst MARC Adams/Assigned Designee Name Sara Seo, sister/POA Contact Information [phone] Advance Directives? Yes Advance Directives on File No History Provided By Significant Other,Medical Record Prior Living Arrangements Assisted Living Household Members other Type of transporation used prior to Relies on Others admit Willing to Return to Facility? Yes: [facility] Independent with ADL's No Is patient alert and oriented? No Needs Assistance With Bathing,Meal Prep,Managing Medications,Home Chores / Shopping Barriers to Discharge No Comment Return to [facility] is anticipated. PT pending. Transportation Arrangement Wheelchair van Additional Comment CM team following closely. If patient is at her functional and cognitive baseline, will return to [facility].
--- NOTE | 2024-07-21 15:54 | OT.IPNOTE ---
Initiated OT eval and pt getting tearful. Pt having word finding issues and states just would like to rest. Pt feels very frustrated that no one can figure out why she has been falling so much lately. To touch base with pt nurse. NO charge and try again tomorrow.
[2024-07-21] MEDS: GABAPENTIN 600 MG TABLET PO ×2 (16:06→21:16)
[2024-07-21] MEDS: IPRATROPIUM 0.06% NASAL 15 ML 1 SPRAY NASAL ×2 (16:07→21:16)
--- NOTE | 2024-07-21 16:30 | PT.IIE ---
Current Diagnoses Toxic effect of unspecified substance, accidental (unintentional), initial encounter (07/20/24) Physical Therapy Inpatient Evaluation/Re-Eval M1 PT/OT-IP Prior Functional Status Start: 07/21/24 17:29 Freq: NEEDED Status: Active Protocol: Document 07/21/24 16:30 AB (Rec: 07/21/24 17:46 AB [id number]) Medical Review Prior Functional Status Medical History Reviewed Yes Communication able to make needs known; with slight confusion Mobility and Gait pt stated that she was modified independent with all mobilities and ambulation using a 4WW Activities of Daily Living and IADL's pt stated that she gets set up assist for shower needs Prior Functional Level (Other details) pt with h/o falls Social History Household Members other Living Arrangements Assisted Living Number of Stairs To Enter/Railing? per EMR: pt lives at [facility] Environment Standard Height Toilet,Walk in Shower Home Equipment Four Wheel Walker,Shower Seat with Backrest,Hand Held Shower ,Grab Bars Near Toilet,Grab Bars In Shower M2 PT-IP Current Condition Start: 07/21/24 17:29 Freq: NEEDED Status: Active Protocol: Document 07/21/24 16:30 AB (Rec: 07/21/24 17:46 AB [id number]) Physical Therapy Current Condition Current Condition Evaluation Date 07/21/24 Treatment Diagnosis polysubstance overdose; toxic encephalopathy; difficulty in walking Onset Date 07/20/24 M3 PT-IP Subjective Start: 07/21/24 17:29 Freq: NEEDED Status: Active Protocol: Document 07/21/24 16:30 AB (Rec: 07/21/24 17:46 AB [id number]) Subjective Physical Therapy Visit Type Type Initial Evaluation Visit Start Time 16:30 Visit Stop Time 17:05 Number of BUSINESS SERVICES ASSISTANT Visits 0 Physical Therapy Visit Comments Patient Comments agreeable to do PT Therapy Pain Assessment Pain When Pain Assessed During Mobility Pain Present Pain Present Pain Reported Location Bilateral Knee Scale Used pain scale not stated Pain Management Techniques Distraction,Modification of Treatment,Re-positioning M4 PT-IP Mobility and Gait Start: 07/21/24 17:29 Freq: NEEDED Status: Active Protocol: Document 07/21/24 16:30 AB (Rec: 07/21/24 17:46 AB [id number]) PT-Bed Mobility Assessment Supine to Sit Supine to Sit Minimal Assistance,Head of Bed Elevated,Bedrails PT-Transfer Assessment Sit to and From Stand Sit to and from Stand Minimal Assistance,1 Person Assistance,Use of Upper Extremities Equipment Transfer Assistive Device Gait Belt,Front Wheeled Walker Orthotic/Prosthetic Devices or Brace: No Transfers Transfer Destination Chair Transfer Technique ambulated Transfer Ability Level of Assist Minimal Assistance,Moderate Assistance,1 Person Assistance ,Use of Upper Extremities Comments Mobility Comments pt supine in bed and agreeable to do PT. obtained PLOF and home set up. pt with slight confusion and has memory issues. pt completed supine to sit SBA with HOB elevated. able to sit on EOB CGA. completed sit to stand from EOB min A and ambulated ~ 75 ft using FWW min A but needing mod A midway with ambulation. presents wtih usteady gait. pt sat on the chair. agreed to stay up on the chair. positioned pt on the chair. call light and table placed within reach. informed nurse that pt needs a chair alarm. Gait Assessment Gait Gait Assistance Required: Minimum Assistance,Moderate Assistance Distance (Feet) 75 Able to Maintain Weight Bearing Status Yes During Gait Assistive Devices Assistive Device Gait Belt,Front Wheeled Walker Orthotic/Prosthetic Devices or Brace: No Gait Deviations General Gait Pattern Antalgic,Decreased Stride Length,Decreased Feet Clearance Factors Limiting Gait Function Factors Limiting Gait Function Decreased Activity Tolerance, Decreased Strength,Difficulty Following Directions,Limited Range of Motion,Pain,Poor Balance,Poor Safety Awareness PT-Balance Assessment Sitting Balance and Reactions Static Sitting Balance Ability Good Dynamic Sitting Balance Ability Fair Standing Balance and Reactions Static Standing Balance Ability Fair Dynamic Standing Balance Ability Poor Device Used FWW M5 PT-IP Objective Assessments Start: 07/21/24 17:29 Freq: NEEDED Status: Active Protocol: Document 07/21/24 16:30 AB (Rec: 07/21/24 17:46 AB [id number]) Orientation Orientation/Cognition Level of Alertness Confusional State Orientation Name,Birthday Language Function Ability No Deficits Noted Safety Awareness Decreased Safety Awareness Memory Description Short Term Impaired,[place] [employer] Impaired Gross Range of Motion Lower Extremity ROM Assessment Within Functional Limits Strength Lower Extremity Strength Assessment Bilaterally Impaired Hip 4-/5 Knee 4-/5 Muscle Tone Muscle Tone WNL Yes M6 PT-IP Treatment Start: 07/21/24 17:29 Freq: NEEDED Status: Active Protocol: Document 07/21/24 16:30 AB (Rec: 07/21/24 17:46 AB [id number]) Physical Therapy Treatment Education Education Provided Safety M7 PT-IP Assessment and Plan Start: 07/21/24 17:29 Freq: NEEDED Status: Active Protocol: Document 07/21/24 16:30 AB (Rec: 07/21/24 17:46 AB [id number]) PT Summary Assessment and Plan Potential Rehabilitation Potential Fair Status of Condition at Evaluation Evolving Summary Impairments Pain,ROM,Strength,Balance, Coordination,Sensation, Cognition,Bed Mobility, Transfers,Gait,Activity Tolerance Assessment Summary pt is a 74 y/o F who is admitted for toxic encephalopathy due to polysubstance overdose. pt also had a fall. pt is a resisent of [place] [employer]. pt requiring min to mod A with ambulation using FWW. pt needs cues with all tasks due to confusion and decrease safety awareness. d/c plan depending on progress but at this time, pt will benefit from SNF rehab to improve overall strength and independence. will continue to assess. Goals Bed Mobility Goal Independent Transfer Goal Independent,Front Wheeled Walker Gait Goal Independent,Front Wheel Walker Gait Distance 200 Other Goals improve transfers, ambulation using 4WW ~ 250 ft SBA Days to Meet Goals 10 Frequency of Treatment Frequency Of Treatment Once a Day Treatment Plan Physical Therapy Treatment Plan Bed Mobility Training,Transfer Training,Gait Training, Therapeutic Exercise,Balance Retraining,Discharge Planning, Hot or Cold Pack,Neuromuscular Re-ed,Coordination Retraining Precautions Other Precautions falls Recommendations To Nursing Amount of Assist Needed 1 Person Assist Discharge Recommendations PT Discharge Recommendations SNF Rehab Transportation Needs at Discharge Wheelchair/Cabulance
--- NOTE | 2024-07-21 16:51 | PC.NURSE ---
Addendum entered by Jennifer Dorman R.N. 07/21/24 18:12: 1800 Patient refusing dinner smoothie. Pudding given, patient with no complaints at this time. Addendum entered by Jennifer Dorman R.N. 07/21/24 17:39: 1739 Patient sitting in chair and assisted to bed. Comfort measures provided. Call light within reach and bed in lowest position. Original Note: [id number] Report received from offgoing RN. PT at the bedside. Patient ambulating in room with walker.
[2024-07-21] MEDS: DULOXETINE 30 MG CAPSULE 60 MG PO (21:16)
[2024-07-21] MEDS: COLESEVELAM 625 MG TABLET PO (21:16)
[2024-07-22] VITALS (33 sets, daily range): BP systolic 125–159; BP diastolic 61–80; PULSE 61–98; RESP 16–20; TEMP 36.2–36.7; O2SAT 90–98
[2024-07-22 00:16] LABS: Appearance Urine UA CLEAR; Bilirubin Urine UA NEGATIVE (NEGATIVE); Color Urine UA YELLOW; Glucose Urine UA NEGATIVE (Negative); Ketones Urine UA NEGATIVE (NEGATIVE); Leukocyte Esterase Urine UA TRACE (NEGATIVE); Nitrite Urine UA NEGATIVE (Negative); Occult Blood Urine UA TRACE-INTACT (Negative); Protein Urine UA NEGATIVE (Negative); Specific Gravity Urine UA <=1.005 (1.000-1.035)
[2024-07-22 00:31] LABS: RBC Urine None Seen (0-5/HPF); Squamous Epithelial Cell Urine 1-5 /HPF (0-5/HPF); Urine Volume 10mL (spun); WBC Urine 1-5/HPF (0-5/HPF)
[2024-07-22 00:32] LABS: Bacteria Urine Few (2-10); Culture Indicated Urine Cult Not Indicated
[2024-07-22 05:12] LABS: Add Manual Diff / Slide Review NO; Basophils Absolute Auto 0 /uL (0-100); Basophils Percent Auto 0.5 % (0-2); Eosinophils Absolute Auto 200 /uL (0-450); Eosinophils Percent Auto 3.1 % (2-4); Hematocrit 37.8 % (36-46); Hemoglobin 12.5 g/dL (12.0-16.0); Lymphocytes Absolute Auto 1700 /uL (1100-4500); Lymphocytes Percent Auto 32.3 % (25-40); Mean Corpuscular Hemoglobin 33.6 PG (26-34); Mean Corpuscular Volume 101.8 fL (80-100); Monocytes Absolute Auto 600 /uL (0-900); Monocytes Percent Auto 10.4 % (3-14); Neutrophils Absolute Auto 2900 /uL (1500-7000); Neutrophils Percent Auto 53.7 % (50-75); Platelet Count 255 X10^3/uL (150-400); Red Blood Cell Count 3.71 X10^6/uL (4.0-5.2); Red Cell Distribution Width 13.7 % (11.6-14.8); White Blood Cell Count 5.3 X10^3/uL (4.5-11.0)
[2024-07-22 05:47] LABS: BUN Creatinine Ratio 12.1 (6-22); Blood Urea Nitrogen 7 mg/dL (7-17); Calcium 8.6 mg/dL (8.4-10.2); Carbon Dioxide 29 mmol/L (22-32); Chloride 105 mmol/L (98-107); Estimated Glomerular Filt Rate > 60 mL/min (>60); Glucose 93 mg/dL (80-110); HEMOLYSIS < 15 (0-50); Magnesium 2.1 mg/dL (1.6-2.3); Potassium 3.5 mmol/L (3.4-5.1); Sodium 136 mmol/L (137-145)
[2024-07-22] MEDS: POTASSIUM CHLORIDE 20 MEQ TAB PO (09:26)
[2024-07-22] MEDS: CHOLECALCIFEROL (VITAMIN D3) 5,000 UNIT TABLET 5000 UNIT PO (09:26)
[2024-07-22] MEDS: COLESEVELAM 625 MG TABLET PO ×2 (09:26→20:38)
[2024-07-22] MEDS: ENOXAPARIN 40 MG/0.4 ML SYRINGE SUBCUT (09:27)
[2024-07-22] MEDS: MONTELUKAST 10 MG TABLET PO (09:27)
[2024-07-22] MEDS: GABAPENTIN 600 MG TABLET PO ×2 (09:27→20:37)
[2024-07-22] MEDS: FERROUS SULFATE 325 MG TABLET PO (09:27)
[2024-07-22] MEDS: DULOXETINE 30 MG CAPSULE 60 MG PO ×2 (09:27→20:37)
[2024-07-22] MEDS: IPRATROPIUM 0.06% NASAL 15 ML 1 SPRAY NASAL ×2 (09:28→20:37)
--- NOTE | 2024-07-22 11:02 | CM.DPC ---
Addendum entered by MARC Cristina 07/22/24 13:23: ADD: [facility] can accept tomorrow 07/23 around 1130. MADDY updated MD. MADDY updated Senait at [facility] and left msg for Jassi at [facility] that pt plan is d/c to [facility] tomorrow. BF Addendum entered by MARC Cristina 07/22/24 11:09: ADD: [facility] confirms they can accept and will submit for [facility] auth today. If auth obtained, could potentially take pt tomorrow 07/23. BF Original Note: DCP SNF Planning: Per MD, pt making progress and likely stable for discharge from the hospital soon and adjusted her medications to reduce risk of accidental overdose/med interactions. Per PT, yesterday recommending SNF before return to [facility]. TEXTILE ENGRAVER to work with pt again today. Per RN, pt made some progress with mobility and mentation but remains confused. MADDY met bedside with pt and explained role and pt able to participate in discussion but needing reminders and repeating information. Pt able to confirm her preference is SNF rehab at d/c rather than direct d/c back to [facility] for increased care towards strengthening and making improvements. Pt would be interested in having a different fdc care facility to move into but aware sometimes it can take a while to work with HCS CM on a facility. MADDY contacted Anna at [facility] and made referral to review to determine if they can accept and start [facility] MCR auth today for rehab before LTC. PASRR completed but will need MD signature for exempted hospital discharge for depression and anxiety. Plan: SW to follow closely for confirmation if [facility] can accept and start auth process before return to [facility]. MARC Cristina
--- NOTE | 2024-07-22 12:26 | OT.IP.EVAL ---
Current Diagnoses Toxic effect of unspecified substance, accidental (unintentional), initial encounter (07/20/24) Occupational Therapy Inpatient Evaluation/Re-Eval M1 PT/OT-IP Prior Functional Status Start: 07/21/24 17:29 Freq: NEEDED Status: Active Protocol: Document 07/22/24 12:34 [facility] (Rec: 07/22/24 13:03 [facility] [id number]) Medical Review Prior Functional Status Medical History Reviewed Yes Communication able to make needs known; with slight confusion Mobility and Gait pt stated that she was modified independent with all mobilities and ambulation using a 4WW Activities of Daily Living and IADL's pt stated that she gets set up assist for shower needs Prior Functional Level (Other details) pt with h/o falls Social History Household Members other Living Arrangements Assisted Living Number of Stairs To Enter/Railing? per EMR: pt lives at [facility] Environment Standard Height Toilet,Walk in Shower Home Equipment Four Wheel Walker,Shower Seat with Backrest,Hand Held Shower ,Grab Bars Near Toilet,Grab Bars In Shower M2 OT-IP Current Condition Start: 07/22/24 12:33 Freq: Status: Active Protocol: Document 07/22/24 12:34 [facility] (Rec: 07/22/24 13:03 [facility] [id number]) Occupational Therapy Current Condition Current Condition Evaluation Date 07/22/24 Treatment Diagnosis GLF, toxic encephalopathy Diagnosis Onset Date 07/20/24 M3 OT- IP Subjective and Pain Start: 07/22/24 12:33 Freq: Status: Active Protocol: Document 07/22/24 12:34 [facility] (Rec: 07/22/24 13:03 [facility] [id number]) OT- Subjective Occupational Therapy Visit Type Type Initial Evaluation Visit Start Time 11:55 Visit Stop Time 12:26 Occupational Therapy Visit Comments Patient Comments Pt agreed to get up to the sink. Patient/Caregiver Goals To get better OT Pain Assessment Pain When Pain Assessed At Rest Pain Present Pain Present Pain Reported Location Bilateral Knee Pain Behaviors Facial Grimacing,Holding Area M4 OT- IP ADL's Start: 07/22/24 12:33 Freq: Status: Active Protocol: Document 07/22/24 12:34 [facility] (Rec: 07/22/24 13:03 [facility] [id number]) OT BNR-Jipa-Gulykis Comments OT Self-Feeding Comments Not at meal time. OT ADL-Grooming General Evaluation Grooming Ability Standby Assistance Areas Needing Assistance Retrieving/Set-up of Grooming Items Comments OT Grooming Comments Assist to help open packages. OT ADL-Oral Care General Eval Oral Care Ability Standby Assistance Comments Oral Care Comments Pt able to swab her mouth while standing at the sink. Assist to open items for grooming needs. OT ADL-Dressing General Eval Lower Body Dressing Ability Maximum Assistance Comments OT Dressing Comments Pt not able to do LB dressing needs and able to show her use of tornado chaser and sock aid and would benefit from more practice. OT ADL-Toileting Comments OT Toileting Comments Pt not having to go at this time. Pt would benefit from assist for completeness and pants management needs. OT ADL-Bathing Comments OT Bathing Comments Pt will need assist. M5 OT- IP IADL's Start: 07/22/24 12:33 Freq: Status: Active Protocol: Document 07/22/24 12:34 [facility] (Rec: 07/22/24 13:03 [facility] [id number]) OT-Instrumental Activities of Daily Living Home Safety Awareness Home Safety Comments Pt still a little groggy and not thinking well. Medication Management Medication Management Caregiver Administers Money Management Money Management Caregiver Provides Assistance Meal Preparation Meal Preparation Caregiver Provides Assist Audit Reviewer Audit Reviewer Caregiver Provides Assist M6 OT- IP Functional Cognition Start: 07/22/24 12:33 Freq: Status: Active Protocol: Document 07/22/24 12:34 [facility] (Rec: 07/22/24 13:03 [facility] [id number]) Cognitive Factors Limiting Selfcare Function Cognitive Ability Level of Alertness Confusional State Patient Orientation Name,Year,Situation Attention Span Ability Capable of Focused Attention, Unable to Sustain Attention Ability to Follow Commands Able to Follow One Step Commands with Increased Time, Able to Follow One Step Commands with Repetition Memory Description Short Term Impaired,Working Impaired Problem Solving Ability Unable to Identify Errors, Needs Assist to Identify Solutions Cognitive Tests SLUMS Pt feels that she is not thinking well yet and scored 7 /30 on the SLUMS which implies dementia, however pt maybe still recovering from her toxic encephalopathy- therefore good to retest pt when she is clearer. Pt able to states the year, state, repeat 3 digit number backwards, and place an x on the triangle and pick out the largest shape, and able to answer 1/4 questions right after paragraph read. Cognitive Comments Cognitive Assessment Comments Pt still confused and needing concrete cues to follow. Pt is a little impulsive and needing cues for safety. 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 Pt able to read the clock but states vision is blurry. M7 OT- IP Mobility and Balance Start: 07/22/24 12:33 Freq: Status: Active Protocol: Document 07/22/24 12:34 [facility] (Rec: 07/22/24 13:03 [facility] [id number]) OT-Transfer Assessment Sit to and From Stand Sit to and from Stand Contact Guard Assistance Transfers Transfer Ability Contact Guard Assistance, Minimal Assistance Technique Transfer Destination Chair Transfer Technique Stand Step Pivot Devices Transfer Assistive Devices None Comments Mobility Comments Pt CGA to stand CGA in the room and BARBARA for uneven surfaces without a device. Pt safer to use a device. OT- Balance Assessment Sitting Balance and Reactions Static Sitting Balance Ability Good Dynamic Sitting Balance Ability Fair Standing Balance and Reactions Static Standing Balance Ability Good Dynamic Standing Balance Ability Fair M8 OT- IP Objective Assessments Start: 07/22/24 12:33 Freq: Status: Active Protocol: Document 07/22/24 12:34 [facility] (Rec: 07/22/24 13:03 [facility] [id number]) OT Gross Range of Motion Upper Extremity Range of Motion Assessment Within Functional Limits OT Strength Upper Extremity Strength Assessment Within Functional Limits Comments Strength Comments BUE 4/5 throughout OT- Coordination Assessment Upper Extremity Finger to Nose Test Within Functional Limits Finger Tapping Test Bilateral UE Impaired Comments Coordination Comments Increased time finger tapping. M9 OT- IP Assessment and Plan Start: 07/22/24 12:33 Freq: Status: Active Protocol: Document 07/22/24 12:34 [facility] (Rec: 07/22/24 13:03 [facility] [id number]) OT Summary Assessment and Plan Potential Rehabilitation Potential Fair Analytic Complexity at Evaluation Moderate Summary OT Impairments Pain,Strength,Balance, Coordination,Functional Cognition,Functional Mobility, Self-Feeding,Grooming,Dressing ,Toileting,Bathing,Toilet Transfers,Shower Transfers, Activity Tolerance Progress Towards Goals Slow Progress due to Medical Issues,Slow Progress due to Cognition Assessment Summary Pt MOD complexity and main barriers are pain, having more difficulty with her cognition - and scored 7/30 on the SLUMS which implies dementia- however pt still recovering from toxic encephalopathy. Pt would benefit from skilled rehab to help improve her independence with ADL and mobility needs. Pt would benefit from skilled rehab to improve overall independence with ADL and mobility versus home with 24/ assist and home health. If pt cognition does not clear pt may benefit from memory care. Goals Grooming Goal Independent Dressing Goal Minimal Assistance Toileting Goal Independent Bathing Goal Minimal Assistance Toilet Transfer Goal Independent Shower Transfer Goal Standby Assistance Days to Meet Goals 10 Frequency of Treatment Other frequency 5x/week Treatment Plan OT Treatment Plan ADL Training,Functional Cognition Training,Functional Mobility,Patient/Family Education,Discharge Planning Other Treatment Recommendations and Next BUE exercises fro hand Treatment Focus strengthening Discharge Recommendations OT Discharge Recommendations SNF Rehab,Home vs SNF Other Discharge Recommendations SNF versus 26/05 assist with home health Memory care Transportation Needs at Discharge Wheelchair/Cabulance
--- NOTE | 2024-07-22 13:25 | PT.IPTN ---
Current Diagnoses Toxic effect of unspecified substance, accidental (unintentional), initial encounter (07/20/24) Physical Therapy Treatment Note M2 PT-IP Current Condition Start: 07/21/24 17:29 Freq: NEEDED Status: Active Protocol: Document 07/21/24 16:30 AB (Rec: 07/21/24 17:46 AB [id number]) Physical Therapy Current Condition Current Condition Evaluation Date 07/21/24 Treatment Diagnosis polysubstance overdose; toxic encephalopathy; difficulty in walking Onset Date 07/20/24 M3 PT-IP Subjective Start: 07/21/24 17:29 Freq: NEEDED Status: Active Protocol: Document 07/22/24 13:49 TS (Rec: 07/22/24 14:00 TS [id number]) Subjective Physical Therapy Visit Type Type Treatment Note Visit Start Time 13:25 Visit Stop Time 13:48 Number of INSURANCE SALES SUPERVISOR Visits 1 Physical Therapy Visit Comments Patient Comments Pt found sitting in chair, has some confusion and reports multiple falls at CORRECTION. She is agreeable to PT. M4 PT-IP Mobility and Gait Start: 07/21/24 17:29 Freq: NEEDED Status: Active Protocol: Document 07/22/24 13:49 TS (Rec: 07/22/24 14:00 TS [id number]) PT-Bed Mobility Assessment Supine to Sit Supine to Sit Standby Assistance Sit to Supine Sit to Supine Standby Assistance Scooting Scooting to Edge of Bed Standby Assistance PT-Transfer Assessment Sit to and From Stand Sit to and from Stand Standby Assistance Equipment Transfer Assistive Device None Orthotic/Prosthetic Devices or Brace: No Comments Mobility Comments STS from chair SBA with no AD, pt is unsteady in standing and is impulsive to stand before therapist is ready with FWW. She ambulates ~150'CGA with FWW. She performs bed mobility SBA with HOB flat. She sat back in chair, chair alarm on, all needs met. Gait Assessment Gait Gait Assistance Required: Contact Guard Assist Distance (Feet) 150 Able to Maintain Weight Bearing Status Yes During Gait Assistive Devices Assistive Device Gait Belt,Front Wheeled Walker Gait Deviations General Gait Pattern Antalgic,Decreased Stride Length,Decreased Feet Clearance Factors Limiting Gait Function Factors Limiting Gait Function Decreased Activity Tolerance, Decreased Strength,Difficulty Following Directions,Limited Range of Motion,Pain,Poor Balance,Poor Safety Awareness PT-Balance Assessment Sitting Balance and Reactions Static Sitting Balance Ability Good Dynamic Sitting Balance Ability Fair Standing Balance and Reactions Static Standing Balance Ability Good Dynamic Standing Balance Ability Fair Device Used FWW M5 PT-IP Objective Assessments Start: 07/21/24 17:29 Freq: NEEDED Status: Active Protocol: Document 07/21/24 16:30 AB (Rec: 07/21/24 17:46 AB [id number]) Orientation Orientation/Cognition Level of Alertness Confusional State Orientation Name,Birthday Language Function Ability No Deficits Noted Safety Awareness Decreased Safety Awareness Memory Description Short Term Impaired,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 Traffic Control 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 Impaired Gross Range of Motion Lower Extremity ROM Assessment Within Functional Limits Strength Lower Extremity Strength Assessment Bilaterally Impaired Hip 4-/5 Knee 4-/5 Muscle Tone Muscle Tone WNL Yes M6 PT-IP Treatment Start: 07/21/24 17:29 Freq: NEEDED Status: Active Protocol: Document 07/22/24 13:49 TS (Rec: 07/22/24 14:00 TS [id number]) Physical Therapy Treatment Education Education Provided Safety M7 PT-IP Assessment and Plan Start: 07/21/24 17:29 Freq: NEEDED Status: Active Protocol: Document 07/22/24 13:49 TS (Rec: 07/22/24 14:00 TS [id number]) PT Summary Assessment and Plan Potential Rehabilitation Potential Fair Summary Impairments Pain,ROM,Strength,Balance, Coordination,Sensation, Cognition,Bed Mobility, Transfers,Gait,Activity Tolerance Progress Towards Goals Progressing Toward Goals Assessment Summary Suze is making some progress with her mobility. She is requriing a decreased amount of assist to SBA/CGA. She continues to lack good safety awareness and can be impulsive to move before therapist is ready. PT is recommending home vs SNF. Goals Bed Mobility Goal Independent Transfer Goal Independent,Front Wheeled Walker Gait Goal Independent,Front Wheel Walker Gait Distance 200 Other Goals improve transfers, ambulation using 4WW ~ 250 ft SBA Days to Meet Goals 10 Frequency of Treatment Frequency Of Treatment Once a Day Treatment Plan Physical Therapy Treatment Plan Bed Mobility Training,Transfer Training,Gait Training, Therapeutic Exercise,Balance Retraining,Discharge Planning, Hot or Cold Pack,Neuromuscular Re-ed,Coordination Retraining Precautions Other Precautions falls Recommendations To Nursing Amount of Assist Needed Standby Assistance Discharge Recommendations PT Discharge Recommendations SNF Rehab Transportation Needs at Discharge Wheelchair/Cabulance
--- NOTE | 2024-07-22 14:08 | PM.PN.1 ---
Subjective Subjective Interval history: 74 F here with iatrogenic opiate overdose. Improved with narcan infusion, narcan infusion now off. Improving still today. She has no complaints, still seems a bit weak compared to baseline and not moving around as well. Complains of some left sided back and knee pain, more prominent when she moves. Exam Vital Signs (past 8 hours): - 07/22/24 06:30 07/22/24 07:00 07/22/24 07:01 Temperature Pulse Rate 73 78 Respiratory Rate Blood Pressure Pulse Oximetry 94 96 Oxygen Delivery Method Room Air 07/22/24 07:30 07/22/24 08:00 07/22/24 08:00 Temperature Pulse Rate 74 98 H Respiratory Rate Blood Pressure 139/74 Pulse Oximetry 94 93 Oxygen Delivery Method 07/22/24 08:40 Temperature 97.1 F L Pulse Rate Respiratory Rate 16 Blood Pressure Pulse Oximetry Oxygen Delivery Method Fraction of Inspired Oxygen 28 SaO2/FiO2 Ratio 342 Oxygen Delivery Method Room Air Oxygen Flow Rate 2 Narrative Exam Narrative: NAD, alert and oriented to name. Fluent speech. Lungs are clear, normal rate and effort. Heart is regular, no murmur gallop or rub. Abdomen is soft, non distended. Extremities are free of edema. Objective Labs 07/22/24 04:30 07/22/24 04:30 Labs: Laboratory Results - last 24 hr 07/21/24 07/22/24 23:40 04:30 WBC 5.3 RBC 3.71 L Hgb 12.5 Hct 37.8 MCV 101.8 H MCH 33.6 MCHC 33.0 RDW 13.7 Plt Count 255 Neut % (Auto) 53.7 Lymph % (Auto) 32.3 [place] % (Auto) 10.4 Eos % (Auto) 3.1 Baso % (Auto) 0.5 Neut # (Auto) 2900 Lymph # (Auto) 1700 [place] # (Auto) 600 Eos # (Auto) 200 Baso # (Auto) 0 Sodium 136 L Potassium 3.5 Chloride 105 Carbon Dioxide 29 BUN 7 Creatinine 0.58 Estimated GFR > 60 BUN/Creatinine Ratio 12.1 Glucose 93 Calcium 8.6 Magnesium 2.1 Urine Color Yellow Urine Appearance Clear Urine pH 7.0 Ur Specific [place] <=1.005 Urine Protein Negative Urine Glucose (UA) Negative Urine Ketones Negative Urine Occult Blood Trace-intact Urine Nitrate Negative Urine Bilirubin Negative Urine Urobilinogen 1.0 Ur Leukocyte Esterase Trace H Urine RBC None seen Urine WBC 1-5/hpf Ur Squamous Epith Cells 1-5 /hpf Urine Bacteria Few (2-10) H Ur Culture Indicated? Cult not indicated Vol Urine Centrifuged 10ml (spun) [facility] Social History household members: other Smoking Status: Current every day smoker alcohol intake: former Assessment & Plan Assessment & Plan narrative: 1. Toxic encephalopathy due to opiate overdose, unintentional / iatrogenic, present on admission, improving - continued narcan infusion overnight, now off. Will continue to hold home morphine, benzos, and muscle relaxants today. Mentation is improving. Monitor for possible withdrawal. - no leukocytosis or other evidence of infection. - PT/OT to continue, recommending SNF 2. Acute respiratory failure with hypoxia secondary to #1 - continue narcan infusion as above - ABG reported to me to not show hypercapnea by ER provider - goal O2 90-96% on supplemental therapy. - RT eval and treat order - patient on spiriva, replace wtih duoneb scheduled today. 3. Anxiety and PTSD, present on admission and stable. - hold home benzo for now - continue duloxetine and gabapentin. - will restart muscle relaxant, with 500 mg robaxin TID prn. 4. COPD without exacerbation - RT eval and treat - replace home inhalers with formulary nebs. 5. Chronic pain - add prn robaxin 500 mg today. Try to use sparingly. CODE STATUS: The patient shares that she is DNR status. Her sister lives in [place], and is proxy decision maker. Dispo: Inpatient. Likely discharge to assisted living vs SNF in 1-2 days. Additional history obtained via discussions with the bedside RN, and case management provider. These discussions contributed to the creation of the above assessment and plan. I have reviewed patient's presenting documentation, labs, and imaging personally. Time-Based Coding :: [TOTAL MINUTES] spent with patient and on the chart (including review of chart, obtaining history, exam, reviewing outside data, placing orders, documenting exam and treatment plan, and counseling patient) on [DATE].
[2024-07-23 01:00] VITALS: BP 136/73; PULSE 72; RESP 18; TEMP 36.8; O2SAT 96
[2024-07-23 04:55] LABS: Add Manual Diff / Slide Review NO; Basophils Absolute Auto 0 /uL (0-100); Basophils Percent Auto 0.7 % (0-2); Eosinophils Absolute Auto 200 /uL (0-450); Eosinophils Percent Auto 2.6 % (2-4); Hematocrit 41.3 % (36-46); Hemoglobin 13.8 g/dL (12.0-16.0); Lymphocytes Absolute Auto 2300 /uL (1100-4500); Lymphocytes Percent Auto 35.6 % (25-40); Mean Corpuscular HGB Conc 33.3 % (30-36); Mean Corpuscular Hemoglobin 33.9 PG (26-34); Mean Corpuscular Volume 101.8 fL (80-100); Monocytes Absolute Auto 700 /uL (0-900); Monocytes Percent Auto 10.7 % (3-14); Neutrophils Absolute Auto 3300 /uL (1500-7000); Neutrophils Percent Auto 50.4 % (50-75); Platelet Count 315 X10^3/uL (150-400); Red Blood Cell Count 4.06 X10^6/uL (4.0-5.2); Red Cell Distribution Width 13.8 % (11.6-14.8); White Blood Cell Count 6.6 X10^3/uL (4.5-11.0)
[2024-07-23 05:00] VITALS: BP 144/70; PULSE 72; RESP 18; O2SAT 96
[2024-07-23 05:09] LABS: BUN Creatinine Ratio 10.4 (6-22); Blood Urea Nitrogen 7 mg/dL (7-17); Carbon Dioxide 29 mmol/L (22-32); Chloride 105 mmol/L (98-107); Estimated Glomerular Filt Rate > 60 mL/min (>60); Glucose 95 mg/dL (80-110); HEMOLYSIS < 15 (0-50); Potassium 3.9 mmol/L (3.4-5.1); Sodium 138 mmol/L (137-145)
--- NOTE | 2024-07-23 08:18 | P.DS_ITS ---
History of Present Illness History of Present Illness Chief complaint: mechanical GLF Narrative: From H&P: 74-year-old female with history of anxiety, PTSD, COPD with recent admission for altered mental status after another recent admission for UTI with acute metabolic encephalopathy. Patient was discharged with suspected iatrogenic changes from her home medications including benzos and narcotics. She had a fall today again at her assisted living facility. She was sluggish and lethargic in the ER. Oxygenation improved with narcan administration, but required another dose and then became lethargic again a 3rd time and was placed on a narcan infusion admitted to the ICU for further management. Patient was seen in the ER, unable to reliably tell history at that time due to lethargy. Largely taken from discussion with ER provider. Discharge Providers Provider Date of admission: 07/20/24 18:43 Discharge Date: 07/23/24 Primary care physician: CAMRON Israel Consults: 07/21/24 13:50 Consult to Occupational Therapy Evaluate & Treat Comment: Physician Instructions: Evaluate and treat Consult to Physical Therapy Evaluate & Treat Comment: Physician Instructions: Evaluate and Treat Discharge provider: Delbert Zavala MD Summary Hospital Course Discharge Diagnosis: 1. Toxic encephalopathy due to opiate overdose, unintentional / iatrogenic, present on admission, improving - continued narcan infusion overnight, now off. Will continue to hold home morphine, benzos, and muscle relaxants today. Mentation is improving. Monitor for possible withdrawal. - no leukocytosis or other evidence of infection. - PT/OT to continue, recommending SNF 2. Acute respiratory failure with hypoxia secondary to #1 - continue narcan infusion as above - ABG reported to me to not show hypercapnea by ER provider - goal O2 90-96% on supplemental therapy. - RT eval and treat order - patient on spiriva, replace wtih duoneb scheduled today. 3. Anxiety and PTSD, present on admission and stable. - hold home benzo for now - continue duloxetine and gabapentin. - will restart muscle relaxant, with 500 mg robaxin TID prn. 4. COPD without exacerbation - RT eval and treat - replace home inhalers with formulary nebs. 5. Chronic pain - add prn robaxin 500 mg today. Try to use sparingly. Hospital Course: The patient was admitted with acute respiratory failure presumed related to benzodiazepines and her home opiates. All were held and she improved. She also had encephalopathy initially which resolved. The patient had benzos and opiates held and was continued on duloxetine and gabapentin as well as her Robaxin Q 8 hours as needed. She will discharge to long-term facility for ongoing rehabilitation and monitoring of her symptom control with the elimination of her potentially life-threatening medications. Status at Discharge Cognitive/behavioral status at discharge: oriented Functional status at discharge: uses cane/walker Overall status at discharge: patient is progressing back to baseline Time Spent with Patient Time spent: Greater than 30 minutes Exam Vital Signs (past 8 hours): - 07/23/24 01:00 07/23/24 05:00 07/23/24 07:37 Temperature 98.2 F Pulse Rate 72 72 Respiratory Rate 18 18 Blood Pressure 136/73 144/70 H Pulse Oximetry 96 96 Oxygen Delivery Method Room Air Oxygen Flow Rate 0 0 Fraction of Inspired Oxygen 28 SaO2/FiO2 Ratio 342 Oxygen Delivery Method Room Air Oxygen Flow Rate 0 Narrative Exam Narrative: NAD, alert and oriented. Fluent speech. Lungs are clear, normal rate and effort. Heart is regular, no murmur gallop or rub. Abdomen is soft, non distended. Extremities are free of edema. Objective ECG Impression: Sinus rhythm with premature atrial complexes Cannot rule out Anterior infarct , age undetermined Imaging Multiple studies:: Radiologist's impression: Brain CT: 1. No acute intracranial pathology. 2. No significant changes from previous studies. Cervical spine CT: 1. No acute cervical spine fracture or dislocation. 2. Degenerative disc disease throughout cervical spine not significantly changed from previous study. Chest x-ray: No acute cardiopulmonary pathology. Labs 07/23/24 03:47 07/23/24 03:47 Labs: Laboratory Results - last 24 hr 07/23/24 03:47 WBC 6.6 RBC 4.06 Hgb 13.8 Hct 41.3 MCV 101.8 H MCH 33.9 MCHC 33.3 RDW 13.8 Plt Count 315 Neut % (Auto) 50.4 Lymph % (Auto) 35.6 [place] % (Auto) 10.7 Eos % (Auto) 2.6 Baso % (Auto) 0.7 Neut # (Auto) 3300 Lymph # (Auto) 2300 [place] # (Auto) 700 Eos # (Auto) 200 Baso # (Auto) 0 Sodium 138 Potassium 3.9 Chloride 105 Carbon Dioxide 29 BUN 7 Creatinine 0.67 Estimated GFR > 60 BUN/Creatinine Ratio 10.4 Glucose 95 Calcium 9.0 Magnesium 2.0 [facility] Social History household members: other Smoking Status: Current every day smoker alcohol intake: former Discharge Assessment & Plan Assessment and Plan Assessment: 1. Toxic encephalopathy due to opiate overdose, unintentional / iatrogenic, present on admission, improving 2. Acute respiratory failure with hypoxia secondary to #1 3. Anxiety and PTSD, present on admission and stable. 4. COPD without exacerbation 5. Chronic pain Plan of Treatment: Discharge to the [facility] nursing [facility] with close follow up and monitoring of breathing, mental status and how she does off from benzodiazepines and opiates. Discharge Plan Discharge Plan Patient Disposition: SNF Transfer to: [facility] Under care of provider: Dr. Ochoa. Provider Discharge Comment: Stable for discharge to long-term [facility]. Discharge orders & Medications Prescriptions: Continued albuterol sulfate [Proventil HFA] 90 MCG/PUFF HFA aerosol inhaler 0.09 mg IH BID Qty: 0 fluticasone propionate [Flovent HFA] 12 GM HFA aerosol inhaler 1 puff INH Q DAY Qty: 12 lubiprostone [Amitiza] 24 mcg capsule 24 mcg PO DAILY colesevelam 625 mg tablet 625 mg PO BID cyclobenzaprine 10 mg tablet 10 mg PO BID duloxetine 60 mg capsule,delayed release(DR/EC) 60 mg PO BID montelukast 10 mg tablet 10 mg PO DAILY benzonatate 200 mg capsule 200 mg PO BID PRN (Reason: Cough) gabapentin 600 mg tablet 600 mg PO TID ferrous sulfate 325 mg (65 mg iron) Tablet 325 mg PO DAILY triamcinolone acetonide 0.1 % ointment 0.5 applic topical BID ipratropium bromide 21 mcg (0.03 %) spray,non-aerosol 0.06 spray intranasal TID cyclosporine [Restasis] 0.05 % Dropperette 0.05 drp EYE-BOTH BID cholecalciferol (vitamin D3) [Vitamin D3] 125 mcg (5,000 unit) Tablet 125 mcg PO DAILY Spiriva Respimat 2.5 mcg/actuation Mist 2 inh INHALATION QAM Discontinued clonazepam 0.5 mg Tablet 0.5 mg PO BEDTIME Rx Instructions: administer 30 minutes before bedtime naloxone [Narcan] 4 mg/actuation [place],Non-Aerosol 1 spray INTRANASAL NOW PRN (Reason: overdose) trazodone 100 MG tablet 100 mg PO HS Medication counseling provided by Pharmacist: No Follow up/Referrals: Peggy Alves ARNP [Primary Care Provider] - Discharge Health Status Multidrug resistant organism: No MDRO Diet/Activity/Treatments Diet: Regular Liquid consistency: Normal/Thin Activity: As tolerated. Special Rehabilitation Services Reason for rehabilitation: Recovery r/t decondition Rehab type: Physical therapy and Occupational therapy Visit Report/Discharge Packet Instructions: DI for Prescription Opioid Use Stand Alone Forms: Patient Portal/API Discharge Data Primary Care Provider: Peggy Alves
--- NOTE | 2024-07-23 08:36 | CM.DPC ---
DCP Discharge SNF Per MD, pt is medically stable to d/c to SNF today and no identified barriers to discharge. [facility] can accept pt today and provide transport around 1130. CHARITY Alysia kindly faxing [facility], med list, script, d/c summ, orders to [facility] to review and signed PASRR. SW met bedside with pt and updated her on above and she confirms that she remains agreeable to SNF at d/c before return to [facility] and requests assist with updating her sister/DPOA Sara. SW called sister Sara and updated and she was very appreciative and agreeable and SW transferred call into pt's room so they could talk. MADDY updated MANAGER CASH, crisis specialist, and RN and provided number to call report. Plan: Patient ot d/c to [facility] today via facility van at 1130 before return to [place] vs remain at [facility] terminal operator if they have an opening and is a good fit. Sister will follow up with [facility] to determine if this could be an option. MARC Cristina
[2024-07-23 09:00] VITALS: BP 146/85; PULSE 82; TEMP 36.2; O2SAT 95
[2024-07-23] MEDS: FERROUS SULFATE 325 MG TABLET PO (09:03)
[2024-07-23] MEDS: GABAPENTIN 600 MG TABLET PO (09:03)
[2024-07-23] MEDS: DULOXETINE 30 MG CAPSULE 60 MG PO (09:04)
[2024-07-23] MEDS: CHOLECALCIFEROL (VITAMIN D3) 5,000 UNIT TABLET 5000 UNIT PO (09:04)
[2024-07-23] MEDS: MONTELUKAST 10 MG TABLET PO (09:04)
[2024-07-23] MEDS: COLESEVELAM 625 MG TABLET PO (09:04)
[2024-07-23] MEDS: IPRATROPIUM 0.06% NASAL 15 ML 1 SPRAY NASAL (09:05)
--- NOTE | 2024-07-23 11:43 | PC.NURSE ---
Discharge instructions discussed with patient. IV discontinued, shower provided. Pt ambulatory 1PA SBA w FWW in room. Pt agreeable to discharge plan. Pt wheeled via wheelchair by [facility] facility public service representative at approximately 11:30. Report called to [facility] at 11:35.
== END 2024-07-23 11:30 | DRG 917 ==
LOC: ED 18:39 → AC 18:44 → ICU 19:05
PROVIDERS: Internal Medicine; Admitting Provider Internal Medicine; Emergency Provider Emergency Medicine; PCP Nurse Practitioner Family; Referring Provider Emergency Medicine; Visit Provider Internal Medicine
DX: T40.2X1A Poisoning by other opioids, accidental (unintentional), initial encounter (principal); G92.8 Other toxic encephalopathy; J96.01 Acute respiratory failure with hypoxia; F41.9 Anxiety disorder, unspecified; F43.10 Post-traumatic stress disorder, unspecified; J44.9 Chronic obstructive pulmonary disease, unspecified; G89.29 Other chronic pain; F17.200 Nicotine dependence, unspecified, uncomplicated; W19.XXXA Unspecified fall, initial encounter; Z66 Do not resuscitate
CPT/HCPCS: 36415; 70450; 71045; 72125; 80048; 80053; 81001; 82550; 82962; 83690; 83735; 83880; 84484; 85025; 85610; 85730; 87797; 93005; 96365; 97116; 97162; 97166; 97530; 97535; 99284; 99291; J1650; J2310

== ENCOUNTER → 2024-08-02 18:49 | Outpatient (ROUT) | payer MEDICARE, MEDICAID, SELFPAY ==
[2024-07-20 19:55] VITALS: BMI 38.2
[2024-08-02 19:06] LABS: Appearance Urine UA CLEAR; Bilirubin Urine UA NEGATIVE (NEGATIVE); Color Urine UA YELLOW; Glucose Urine UA NEGATIVE (Negative); Ketones Urine UA NEGATIVE (NEGATIVE); Leukocyte Esterase Urine UA 1+ (NEGATIVE); Nitrite Urine UA NEGATIVE (Negative); Occult Blood Urine UA TRACE-INTACT (Negative); Protein Urine UA NEGATIVE (Negative); Urobilinogen Urine UA 0.2 E.U./dL (0.2)
[2024-08-02 19:19] LABS: pH Urine UA 5.5 (4.5-8.0)
[2024-08-02 19:26] LABS: Bacteria Urine Few (2-10); Culture Indicated Urine Specimen Cultured; RBC Urine 0-1/HPF (0-5/HPF); Squamous Epithelial Cell Urine 5-10 /HPF (0-5/HPF); Urine Volume 10mL (spun); WBC Urine 5-10/HPF (0-5/HPF)
== END ==
PROVIDERS: PCP Nurse Practitioner Family; Visit Provider Registered Nurse
DX: R10.9 Unspecified abdominal pain (principal); R35.0 Frequency of micturition; R39.15 Urgency of urination; R30.0 Dysuria
CPT/HCPCS: 81001; 87086

== ENCOUNTER → 2024-08-10 16:52 | Outpatient (ROUT) | payer MEDICARE, MEDICAID, SELFPAY ==
[2024-07-20 19:55] VITALS: BMI 38.2
[2024-08-10 17:14] LABS: Appearance Urine UA CLEAR; Bilirubin Urine UA NEGATIVE (NEGATIVE); Color Urine UA YELLOW; Glucose Urine UA NEGATIVE (Negative); Ketones Urine UA TRACE (NEGATIVE); Leukocyte Esterase Urine UA 2+ (NEGATIVE); Nitrite Urine UA NEGATIVE (Negative); Occult Blood Urine UA NEGATIVE (Negative); Protein Urine UA TRACE (Negative); Specific Gravity Urine UA >=1.030 (1.000-1.035)
[2024-08-10 18:39] LABS: pH Urine UA 5.5 (4.5-8.0)
[2024-08-10 20:23] LABS: Urine Volume 10mL (spun)
[2024-08-10 20:25] LABS: Bacteria Urine Many (>30); Hyaline Casts Urine 5-10/LPF; RBC Urine None Seen (0-5/HPF); Squamous Epithelial Cell Urine 10-30 /HPF (0-5/HPF); WBC Urine 5-10/HPF (0-5/HPF)
== END ==
PROVIDERS: PCP Nurse Practitioner Family; Visit Provider Nurse Practitioner Family
DX: Z13.89 Encounter for screening for other disorder (principal)
CPT/HCPCS: 81001

== ENCOUNTER → 2024-08-11 16:35 | Outpatient (ROUT) | payer MEDICARE, MEDICAID, SELFPAY ==
[2024-07-20 19:55] VITALS: BMI 38.2
== END ==
PROVIDERS: PCP Nurse Practitioner Family; Visit Provider Nurse Practitioner Family
DX: Z13.89 Encounter for screening for other disorder (principal)
CPT/HCPCS: 87086

== ENCOUNTER 2024-09-27 06:25 | Emergency (ER) | payer MEDICARE, MEDICAID, SELFPAY ==
[2024-07-20 19:55] VITALS: BMI 38.2
[2024-09-27] VITALS (14 sets, daily range): BP systolic 121–167; BP diastolic 66–83; PULSE 79–120; RESP 18; TEMP 36.5; O2SAT 92–98; BMI 36.6
--- NOTE | 2024-09-27 06:34 | ED.FEMALEGU ---
HPI - Female Genitourinary <Mabel Nunu MatthewsmathewDO - Last Filed: 09/28/24 02:46> General Chief complaint: Urogenital-Female Stated complaint: weakness x1mos Time Seen by Provider: 09/27/24 06:33 Source: patient, RN notes reviewed and old records reviewed Mode of arrival: EMS Limitations: no limitations History of Present Illness HPI Narrative: 74-year-old female with history of anxiety, PTSD, COPD who presents with complaint of urinary symptoms for the last several days as well as dizziness and weakness for a month. Patient states she is felt generally unwell for about a month. Denies fevers or rigors but does describe getting sweaty. She does note a little bit of nasal congestion recently. Denies any chest pain or shortness of breath today. She has had some mild nausea no vomiting. She notes she feels like she was not emptying her bladder well but denies any dysuria urgency or frequency. Patient states she has had a little bit of constipation. No new swelling of extremities. Patient states she was on blood pressure medication. She notes she was only on 1 medication for her mood disorder. She was on multiple medications but had several polypharmacy overdoses and states all of her pain medications and several of her other medications for anxiety and PTSD were stopped at the same time in July. Related Data Home Medications Medication Instructions Recorded Confirmed albuterol sulfate 90 mcg/actuation 0.09 mg IH BID ##0 01/15/12 07/20/24 aerosol inhaler (Proventil HFA) fluticasone propionate 220 1 puff INH Q DAY ##12 08/14/12 07/20/24 mcg/actuation HFA aerosol inhaler (Flovent HFA) colesevelam 625 mg tablet 625 mg PO BID 02/11/24 07/20/24 cyclobenzaprine 10 mg tablet 10 mg PO BID 02/11/24 07/20/24 duloxetine 60 mg capsule,delayed 60 mg PO BID 02/11/24 07/20/24 release lubiprostone 24 mcg capsule 24 mcg PO DAILY 02/11/24 07/20/24 (Amitiza) montelukast 10 mg tablet 10 mg PO DAILY 02/11/24 07/20/24 benzonatate 200 mg capsule 200 mg PO BID PRN Cough 07/08/24 07/20/24 cholecalciferol (vitamin D3) 125 125 mcg PO DAILY 07/08/24 07/20/24 mcg (5,000 unit) tablet (Vitamin D3) cyclosporine 0.05 % eye drops in a 0.05 drp EYE-BOTH BID 07/08/24 07/20/24 dropperette (Restasis) ferrous sulfate 325 mg (65 mg 325 mg PO DAILY 07/08/24 07/20/24 iron) tablet gabapentin 600 mg tablet 600 mg PO TID 07/08/24 07/20/24 ipratropium bromide 21 mcg (0.03 0.06 spray intranasal TID 07/08/24 07/20/24 %) nasal spray tiotropium bromide 2.5 2 inh inhalation QAM 07/08/24 07/20/24 mcg/actuation mist for inhalation (Spiriva Respimat) triamcinolone acetonide 0.1 % 0.5 applic topical BID 07/08/24 07/20/24 topical ointment Previous Rx's Medication Instructions Recorded cefdinir 300 mg capsule 300 mg PO Q12H #20 caps 09/27/24 prednisone 20 mg tablet 20 mg PO DAILY #5 tabs 09/27/24 tiotropium bromide 18 mcg capsule 1 cap inhalation DAILY #90 09/27/24 with inhalation device (Spiriva inhalations with HandiHaler) Allergies Allergy/AdvReac Type Severity Reaction Status Date / Time imipramine [IMIPRAMINE] Allergy Severe throat Verified 07/20/24 16:03 swelling influenza virus vaccine, Allergy Severe arm and Verified 07/20/24 16:03 specific body [INFLUENZA VIRUS swelling VACC,SPECIFIC] pneumococcal vaccine Allergy Severe body Verified 07/20/24 16:03 [PNEUMOCOCCAL VACCINE] swelling eucalyptus [EUCALYPTUS] Allergy Mild Verified 07/20/24 16:03 oxycodone [OXYCODONE] AdvReac Severe panic Verified 07/20/24 16:03 feeling rasagiline [From AZILECT] AdvReac Severe suicidal Verified 07/20/24 16:03 carbidopa [CARBIDOPA] AdvReac Mild nausea & Verified 07/20/24 16:03 vomiting Sulfa (Sulfonamide AdvReac Mild n/v Verified 07/20/24 16:03 Antibiotics) [SULFA (SULFONAMIDE ANTIBIOTICS)] sulfacetamide [SULFACETAMIDE] AdvReac Mild n/v Verified 07/20/24 16:03 TOMATOES Allergy Mild N/V Uncoded 07/20/24 16:03 TORFANIL Allergy Unknown PER PT Uncoded 07/20/24 16:03 Review of Systems <Mabel Trent DO - Last Filed: 09/28/24 02:46> Review of Systems ROS Unobtainable: All systems reviewed & are unremarkable except as noted in HPI and below Patient History <Mabel Trent DO - Last Filed: 09/28/24 02:46> tobacco type: cigarettes alcohol intake frequency: 0-2 drinks per day Substance Use Type: does not use Exam <Mabel Trent DO - Last Filed: 09/28/24 02:46> Narrative Exam Narrative: GENERAL: Alert and oriented x three, obese female in mild distress HEENT: Head normocephalic, atraumatic, EOMI, pupils reactive, face symmetric, moist mucous membranes NECK: Supple, full range of motion CARDIOVASCULAR: Regular rate and rhythm without murmurs, rubs or gallops. No JVD. No edema bilateral lower extremities. RESPIRATORY: Breath sounds equal bilaterally, no wheezes rales or rhonchi. No tachypnea or accessory muscle use ABDOMEN: Soft, nontender. Normoactive bowel sounds all 4 quadrants. No guarding or rebound, rigidity, no mass : No CVA tenderness EXTREMITIES: Normal range of motion. Neurovascularly intact NEUROLOGICAL: Cranial nerves II through XII grossly intact. Moving all extremities SKIN: Warm, dry, no petechiae, no rashes or lesions. Initial Vital Signs Initial Vital Signs: Vital Signs Pulse Oximetry 96 09/27/24 06:31 <Janet Bach DO - Last Filed: 09/27/24 20:44> Initial Vital Signs Initial Vital Signs: Vital Signs Pulse Oximetry 96 09/27/24 06:31 Course <Mabel Trent DO - Last Filed: 09/28/24 02:46> Orders Ordered: Discontinued Medications Albuterol/Ipratropium (Albuterol/Ipratropium 3 Ml Ampul) 3 ml INH NOW ONE Stop: 09/27/24 08:58 Last Admin: 09/27/24 09:15 Dose: 3 ml Documented By: BRIANNA Methylprednisolone (Methylprednisolone 125 Mg/2 Ml Vial) 125 mg IV NOW ONE Stop: 09/27/24 08:58 Last Admin: 09/27/24 09:46 Dose: 125 mg Documented By: [facility] Vital Signs Vital signs: Vital Signs - 8 hr 09/27/24 06:32 Temperature 97.7 F Pulse Rate 92 H Respiratory Rate 18 Blood Pressure 162/83 H Pulse Oximetry 98 Oxygen Delivery Method Room Air <Janet Bach DO - Last Filed: 09/27/24 20:44> Orders Ordered: Discontinued Medications Albuterol/Ipratropium (Albuterol/Ipratropium 3 Ml Ampul) 3 ml INH NOW ONE Stop: 09/27/24 08:58 Last Admin: 09/27/24 09:15 Dose: 3 ml Documented By: BRIANNA Methylprednisolone (Methylprednisolone 125 Mg/2 Ml Vial) 125 mg IV NOW ONE Stop: 09/27/24 08:58 Last Admin: 09/27/24 09:46 Dose: 125 mg Documented By: [facility] Vital Signs Vital signs: Vital Signs - 8 hr 09/27/24 06:32 Temperature 97.7 F Pulse Rate 92 H Respiratory Rate 18 Blood Pressure 162/83 H Pulse Oximetry 98 Oxygen Delivery Method Room Air MDM - Female Genitourinary <Mabel Trent DO - Last Filed: 09/28/24 02:46> Lab Data 09/27/24 06:36 09/27/24 06:36 Labs: Lab Results 09/27/24 09/27/24 09/27/24 Range/Units 06:36 06:45 08:44 WBC 9.2 (4.5-11.0) X10^3/uL RBC 4.47 (4.0-5.2) X10^6/uL Hgb 15.2 (12.0-16.0) g/dL Hct 45.2 (36-46) % MCV 101.3 H (80-100) fL MCH 33.9 (26-34) PG MCHC 33.5 (30-36) % RDW 14.1 (11.6-14.8) % Plt Count 325 (150-400) X10^3/uL Neut % (Auto) 65.9 (50-75) % Lymph % (Auto) 23.3 L (25-40) % [place] % (Auto) 7.7 (3-14) % Eos % (Auto) 2.0 (2-4) % Baso % (Auto) 1.1 (0-2) % Neut # (Auto) 6100 (5193-6365) /uL Lymph # (Auto) 2200 (6392-8664) /uL [place] # (Auto) 700 (0-900) /uL Eos # (Auto) 200 (0-450) /uL Baso # (Auto) 100 (0-100) /uL Sodium 139 (137-145) mmol/L Potassium 4.1 (3.4-5.1) mmol/L Chloride 105 (98-107) mmol/L Carbon Dioxide 29 (22-32) mmol/L BUN 15 (7-17) mg/dL Creatinine 0.90 (0.52-1.04) mg/dL Estimated GFR > 60 (>60) mL/min BUN/Creatinine Ratio 16.7 (6-22) Glucose 125 H (80-110) mg/dL Calcium 9.5 (8.4-10.2) mg/dL Total Bilirubin 0.7 (0.2-1.3) mg/dL AST 28 (14-36) IU/L ALT 21 (<35) IU/L Alkaline Phosphatase 114 (38-126) U/L Total Protein 7.4 (6.3-8.2) g/dL Albumin 4.5 (3.5-5.0) g/dL Globulin 2.9 (1.7-4.1) g/dL Albumin/Globulin Ratio 1.6 (1.0-2.8) Lipase 113 (23-300) U/L Urine Color Yellow Urine Appearance Sl cloudy Urine pH 7.0 (4.5-8.0) Ur Specific [place] 1.010 (1.000-1.035) Urine Protein Negative (Negative) Urine Glucose (UA) Negative (Negative) g/dL Urine Ketones Negative (NEGATIVE) Urine Occult Blood Negative (Negative) Urine Nitrate Negative (Negative) Urine Bilirubin Negative (NEGATIVE) Ur Bilirubin Confirm Negative (Negative) Urine Urobilinogen 0.2 (0.2) E.U./dL Ur Leukocyte Esterase Trace H (NEGATIVE) Urine RBC None seen (0-5/HPF) Urine WBC 5-10/hpf H (0-5/HPF) Ur Squamous Epith Cells 5-10 /hpf H (0-5/HPF) Urine Bacteria Few (2-10) H (None) Ur Culture Indicated? Specimen cultured Vol Urine Centrifuged 10ml (spun) SARS-CoV-2 (PCR) Negative (Negative) Influenza A (RT-PCR) Flu a negative (NEGATIVE) Influenza B (RT-PCR) Flu b negative (NEGATIVE) RSV (PCR) Negative (Negative) Urine Dip Bedside Urine Glucose Negative Bedside Urine Bilirubin + 1 Bedside Urine Ketone - Negative Urine Specific [place] 1.010 Bedside Urine Occult Blood - Negative Bedside Urine pH 7.5 Bedside Urine Protein +/- 15 Bedside Urine Urobilinogen - Negative Bedside Urine Nitrite - Negative Bedside Urine Leukocytes + 70 Esterase <Janet Bach, DO - Last Filed: 09/27/24 20:44> Lab Data Labs: Lab Results 09/27/24 09/27/24 09/27/24 Range/Units 06:36 06:45 08:44 WBC 9.2 (4.5-11.0) X10^3/uL RBC 4.47 (4.0-5.2) X10^6/uL Hgb 15.2 (12.0-16.0) g/dL Hct 45.2 (36-46) % MCV 101.3 H (80-100) fL MCH 33.9 (26-34) PG MCHC 33.5 (30-36) % RDW 14.1 (11.6-14.8) % Plt Count 325 (150-400) X10^3/uL Neut % (Auto) 65.9 (50-75) % Lymph % (Auto) 23.3 L (25-40) % [place] % (Auto) 7.7 (3-14) % Eos % (Auto) 2.0 (2-4) % Baso % (Auto) 1.1 (0-2) % Neut # (Auto) 6100 (5811-3470) /uL Lymph # (Auto) 2200 (9772-5586) /uL [place] # (Auto) 700 (0-900) /uL Eos # (Auto) 200 (0-450) /uL Baso # (Auto) 100 (0-100) /uL Sodium 139 (137-145) mmol/L Potassium 4.1 (3.4-5.1) mmol/L Chloride 105 (98-107) mmol/L Carbon Dioxide 29 (22-32) mmol/L BUN 15 (7-17) mg/dL Creatinine 0.90 (0.52-1.04) mg/dL Estimated GFR > 60 (>60) mL/min BUN/Creatinine Ratio 16.7 (6-22) Glucose 125 H (80-110) mg/dL Calcium 9.5 (8.4-10.2) mg/dL Total Bilirubin 0.7 (0.2-1.3) mg/dL AST 28 (14-36) IU/L ALT 21 (<35) IU/L Alkaline Phosphatase 114 (38-126) U/L Total Protein 7.4 (6.3-8.2) g/dL Albumin 4.5 (3.5-5.0) g/dL Globulin 2.9 (1.7-4.1) g/dL Albumin/Globulin Ratio 1.6 (1.0-2.8) Lipase 113 (23-300) U/L Urine Color Yellow Urine Appearance Sl cloudy Urine pH 7.0 (4.5-8.0) Ur Specific [place] 1.010 (1.000-1.035) Urine Protein Negative (Negative) Urine Glucose (UA) Negative (Negative) g/dL Urine Ketones Negative (NEGATIVE) Urine Occult Blood Negative (Negative) Urine Nitrate Negative (Negative) Urine Bilirubin Negative (NEGATIVE) Ur Bilirubin Confirm Negative (Negative) Urine Urobilinogen 0.2 (0.2) E.U./dL Ur Leukocyte Esterase Trace H (NEGATIVE) Urine RBC None seen (0-5/HPF) Urine WBC 5-10/hpf H (0-5/HPF) Ur Squamous Epith Cells 5-10 /hpf H (0-5/HPF) Urine Bacteria Few (2-10) H (None) Ur Culture Indicated? Specimen cultured Vol Urine Centrifuged 10ml (spun) SARS-CoV-2 (PCR) Negative (Negative) Influenza A (RT-PCR) Flu a negative (NEGATIVE) Influenza B (RT-PCR) Flu b negative (NEGATIVE) RSV (PCR) Negative (Negative) Urine Dip Bedside Urine Glucose Negative Bedside Urine Bilirubin + 1 Bedside Urine Ketone - Negative Urine Specific [place] 1.010 Bedside Urine Occult Blood - Negative Bedside Urine pH 7.5 Bedside Urine Protein +/- 15 Bedside Urine Urobilinogen - Negative Bedside Urine Nitrite - Negative Bedside Urine Leukocytes + 70 Esterase MDM Narrative Medical decision making narrative: Dr. Bach- Patient signed out to me by Dr. Trent I have seen evaluated patient myself. Patient reports that she was released from rehab after a 2 month stay after a 2 week stay in critical care after being overdose with morphine. She reports that she has been out for about a month however her Spiriva medication never got refill. She continues to have some shortness of breath. She gets a little dizzy and weak. She has been taking her albuterol however no one has refilled her Spiriva. Blood work has been reviewed no leukocytosis or anemia Urine is positive for squamous cells bacteria and leukocytes. Would hold off and wait for culture at this time Chemistry panel is negative and within normal limits Chest x-ray reviewed by myself no acute cardiopulmonary process At this time I think a lot of patient's symptoms are secondary from being out of her Spiriva. She received DuoNeb treatment here in the ED and feels a lot better. She was also given Solu-Medrol. At no time she hypoxic or in significant respiratory distress Differential diagnosis COPD asthma exacerbation pneumonia, acute coronary syndrome pulmonary embolism Discharge Plan Departure Patient Disposition: Home Clinical Impression: COPD (chronic obstructive pulmonary disease) Instructions: DI for Chronic Obstructive Pulmonary Disease Activity Restrictions/Additional Instructions: *You have been diagnosed with COPD *What to do: At this time I think being out of your Spiriva is causing a lot of your issues. Your blood work today is overall reassuring your x-ray does not show any pneumonia or other process *Continue to take medications as directed Spiriva take as directed Prednisone 20 mg once a day for 5 days *Follow up with your primary care provider in 2-3 days or call [phone] *Return to ER if you should have increasing dizziness falls chest pain shortness of breath [or] any new, worsening or concerning symptoms Prescriptions: New tiotropium bromide [Spiriva with HandiHaler] 18 mcg capsule, w/inhalation device 1 cap inhalation DAILY Qty: 90 0RF Rx Instructions: puncture 1 cap using device; one dose = 2 inhalations prednisone 20 mg tablet 20 mg PO DAILY Qty: 5 0RF cefdinir 300 mg capsule 300 mg PO Q12H Qty: 20 0RF No Action albuterol sulfate [Proventil HFA] 90 MCG/PUFF HFA aerosol inhaler 0.09 mg IH BID Qty: 0 fluticasone propionate [Flovent HFA] 12 GM HFA aerosol inhaler 1 puff INH Q DAY Qty: 12 lubiprostone [Amitiza] 24 mcg capsule 24 mcg PO DAILY colesevelam 625 mg tablet 625 mg PO BID cyclobenzaprine 10 mg tablet 10 mg PO BID duloxetine 60 mg capsule,delayed release(DR/EC) 60 mg PO BID montelukast 10 mg tablet 10 mg PO DAILY benzonatate 200 mg capsule 200 mg PO BID PRN (Reason: Cough) gabapentin 600 mg tablet 600 mg PO TID ferrous sulfate 325 mg (65 mg iron) Tablet 325 mg PO DAILY triamcinolone acetonide 0.1 % ointment 0.5 applic topical BID ipratropium bromide 21 mcg (0.03 %) spray,non-aerosol 0.06 spray intranasal TID cyclosporine [Restasis] 0.05 % Dropperette 0.05 drp EYE-BOTH BID cholecalciferol (vitamin D3) [Vitamin D3] 125 mcg (5,000 unit) Tablet 125 mcg PO DAILY Spiriva Respimat 2.5 mcg/actuation Mist 2 inh INHALATION QAM Referrals: Peggy Alves ARNP [Primary Care Provider] - Stand Alone Forms: Patient Portal/API/Survey, Work Release Note
--- NOTE | 2024-09-27 06:40 | PC.NURSE ---
Unable to provide urine sample at this time
[2024-09-27 06:55] LABS: Alanine Aminotransferase 21 IU/L (<35); Albumin 4.5 g/dL (3.5-5.0); Albumin Globulin Ratio 1.6 (1.0-2.8); Alkaline Phosphatase 114 U/L (38-126); Aspartate Aminotransferase 28 IU/L (14-36); BUN Creatinine Ratio 16.7 (6-22); Bilirubin Total 0.7 mg/dL (0.2-1.3); Blood Urea Nitrogen 15 mg/dL (7-17); Calcium 9.5 mg/dL (8.4-10.2); Carbon Dioxide 29 mmol/L (22-32); Chloride 105 mmol/L (98-107); Estimated Glomerular Filt Rate > 60 mL/min (>60); Globulin 2.9 g/dL (1.7-4.1); Glucose 125 mg/dL (80-110); HEMOLYSIS < 15 (0-50); Lipase 113 U/L (23-300); Potassium 4.1 mmol/L (3.4-5.1); Sodium 139 mmol/L (137-145); Total Protein 7.4 g/dL (6.3-8.2)
[2024-09-27 06:56] LABS: Add Manual Diff / Slide Review NO; Basophils Absolute Auto 100 /uL (0-100); Basophils Percent Auto 1.1 % (0-2); Eosinophils Absolute Auto 200 /uL (0-450); Hematocrit 45.2 % (36-46); Hemoglobin 15.2 g/dL (12.0-16.0); Lymphocytes Absolute Auto 2200 /uL (1100-4500); Lymphocytes Percent Auto 23.3 % (25-40); Mean Corpuscular HGB Conc 33.5 % (30-36); Mean Corpuscular Hemoglobin 33.9 PG (26-34); Mean Corpuscular Volume 101.3 fL (80-100); Monocytes Absolute Auto 700 /uL (0-900); Monocytes Percent Auto 7.7 % (3-14); Neutrophils Absolute Auto 6100 /uL (1500-7000); Neutrophils Percent Auto 65.9 % (50-75); Platelet Count 325 X10^3/uL (150-400); Red Blood Cell Count 4.47 X10^6/uL (4.0-5.2); Red Cell Distribution Width 14.1 % (11.6-14.8); White Blood Cell Count 9.2 X10^3/uL (4.5-11.0)
[2024-09-27 07:28] LABS: Influenza A - CEPHEID Flu A NEGATIVE (NEGATIVE); Influenza B - CEPHEID Flu B NEGATIVE (NEGATIVE); Respiratory Syncytial Virus Negative (Negative)
[2024-09-27 07:30] LABS: COVID-19 CEPHEID 4-PLEX PCR Negative (Negative)
[2024-09-27 08:52] LABS: Ictotest Urine Negative (Negative)
[2024-09-27 08:54] LABS: Appearance Urine UA SL CLOUDY; Bilirubin Urine UA NEGATIVE (NEGATIVE); Color Urine UA YELLOW; Glucose Urine UA NEGATIVE (Negative); Ketones Urine UA NEGATIVE (NEGATIVE); Leukocyte Esterase Urine UA TRACE (NEGATIVE); Nitrite Urine UA NEGATIVE (Negative); Occult Blood Urine UA NEGATIVE (Negative); Protein Urine UA NEGATIVE (Negative); Urobilinogen Urine UA 0.2 E.U./dL (0.2)
[2024-09-27 08:55] LABS: Urine Volume 10mL (spun)
[2024-09-27 08:56] LABS: RBC Urine None Seen (0-5/HPF); WBC Urine 5-10/HPF (0-5/HPF)
[2024-09-27 08:57] LABS: Bacteria Urine Few (2-10); Culture Indicated Urine Specimen Cultured; Squamous Epithelial Cell Urine 5-10 /HPF (0-5/HPF)
--- NOTE | 2024-09-27 08:57 | DI.RAD.S_ITS ---
PROCEDURE: XR CHEST 1V INDICATIONS: short of breath TECHNIQUE: One view of the chest was acquired. COMPARISON: [facility], CR, XR CHEST 1V, 07/20/2024, 16:19. FINDINGS: Surgical changes and devices: None. Lungs and pleura: Lungs are clear. No pleural effusions or pneumothorax. Mediastinum: Tortuous thoracic aorta. Heart size is enlarged. Bones and chest wall: No suspicious bony lesions. Overlying soft tissues appear unremarkable. IMPRESSION: No acute cardiopulmonary pathology. Dictated by: Wilfredo Domingo M.D. on 09/27/2024 at 10:04 Approved by: Wilfredo Domingo M.D. on 09/27/2024 at 10:05
[2024-09-27] MEDS: ALBUTEROL/IPRATROPIUM 3 ML AMPUL INH (09:15)
[2024-09-27] MEDS: methylPREDNISolone 125 MG/2 ML VIAL IV (09:46)
== END 2024-09-27 10:04 | disposition home or self-care (01) ==
PROVIDERS: Emergency Medicine; Emergency Provider Emergency Medicine; PCP Nurse Practitioner Family
DX: J44.9 Chronic obstructive pulmonary disease, unspecified (principal); N39.0 Urinary tract infection, site not specified; R06.02 Shortness of breath; R42 Dizziness and giddiness
CPT/HCPCS: 0241U; 36415; 71045; 80053; 81001; 81003; 83690; 85025; 87086; 94640; 96374; 99284; J2919

== ENCOUNTER → 2024-09-27 18:40 | Outpatient (ROUT) | payer MEDICARE, MEDICAID, SELFPAY ==
[2024-07-20 19:55] VITALS: BMI 38.2
[2024-09-27 18:57] LABS: Appearance Urine UA CLEAR; Bilirubin Urine UA NEGATIVE (NEGATIVE); Color Urine UA YELLOW; Glucose Urine UA NEGATIVE (Negative); Ketones Urine UA NEGATIVE (NEGATIVE); Leukocyte Esterase Urine UA NEGATIVE (NEGATIVE); Nitrite Urine UA NEGATIVE (Negative); Occult Blood Urine UA 1+ (Negative); Protein Urine UA NEGATIVE (Negative); Urobilinogen Urine UA 0.2 E.U./dL (0.2); pH Urine UA 5.5 (4.5-8.0)
[2024-09-27 19:08] LABS: Bacteria Urine Few (2-10); Culture Indicated Urine Specimen Cultured; RBC Urine 1-5/HPF (0-5/HPF); Squamous Epithelial Cell Urine 10-30 /HPF (0-5/HPF); Urine Volume 10mL (spun); WBC Urine 0-1/HPF (0-5/HPF)
== END ==
PROVIDERS: PCP Nurse Practitioner Family; Visit Provider Registered Nurse
DX: R35.0 Frequency of micturition (principal); R39.15 Urgency of urination; R30.0 Dysuria
CPT/HCPCS: 81001; 87086

== ENCOUNTER → 2024-11-22 18:41 | Outpatient (ROUT) | payer MEDICARE, MEDICAID, SELFPAY ==
[2024-07-20 19:55] VITALS: BMI 38.2
[2024-11-22 18:48] LABS: Appearance Urine UA CLEAR; Bilirubin Urine UA NEGATIVE (NEGATIVE); Color Urine UA YELLOW; Glucose Urine UA NEGATIVE (Negative); Ketones Urine UA NEGATIVE (NEGATIVE); Leukocyte Esterase Urine UA NEGATIVE (NEGATIVE); Nitrite Urine UA NEGATIVE (Negative); Occult Blood Urine UA NEGATIVE (Negative); Protein Urine UA NEGATIVE (Negative); Specific Gravity Urine UA 1.025 (1.000-1.035); Urobilinogen Urine UA 0.2 E.U./dL (0.2)
[2024-11-22 18:55] LABS: pH Urine UA 5.5 (4.5-8.0)
[2024-11-22 18:59] LABS: Bacteria Urine Occasional (0-1); Culture Indicated Urine Cult Not Indicated; RBC Urine 0-1/HPF (0-5/HPF); Squamous Epithelial Cell Urine 0-1 /HPF (0-5/HPF); Urine Volume 10mL (spun); WBC Urine 0-1/HPF (0-5/HPF)
== END ==
PROVIDERS: PCP Nurse Practitioner Family; Visit Provider Registered Nurse
DX: R30.0 Dysuria (principal); R35.0 Frequency of micturition; R39.15 Urgency of urination
CPT/HCPCS: 81001

== ENCOUNTER → 2024-12-06 17:01 | Outpatient (ROUT) | payer MEDICARE, MEDICAID, SELFPAY ==
[2024-07-20 19:55] VITALS: BMI 38.2
[2024-12-06 17:35] LABS: Appearance Urine UA CLEAR; Bilirubin Urine UA NEGATIVE (NEGATIVE); Color Urine UA YELLOW; Glucose Urine UA NEGATIVE (Negative); Ketones Urine UA NEGATIVE (NEGATIVE); Leukocyte Esterase Urine UA NEGATIVE (NEGATIVE); Nitrite Urine UA NEGATIVE (Negative); Occult Blood Urine UA NEGATIVE (Negative); Protein Urine UA NEGATIVE (Negative); Urobilinogen Urine UA 0.2 E.U./dL (0.2)
[2024-12-06 17:59] LABS: pH Urine UA 5.5 (4.5-8.0)
[2024-12-06 18:00] LABS: Bacteria Urine Occasional (0-1); Culture Indicated Urine Cult Not Indicated; RBC Urine None Seen (0-5/HPF); Squamous Epithelial Cell Urine 0-1 /HPF (0-5/HPF); Urine Volume 10mL (spun); WBC Urine None Seen (0-5/HPF)
== END ==
PROVIDERS: PCP Nurse Practitioner Family; Visit Provider Registered Nurse
DX: R30.0 Dysuria (principal)
CPT/HCPCS: 81001

== ENCOUNTER → 2024-12-08 07:56 | Outpatient (ROUT) | payer MEDICARE, MEDICAID, SELFPAY ==
[2024-07-20 19:55] VITALS: BMI 38.2
[2024-12-08 08:12] LABS: Add Manual Diff / Slide Review NO; Basophils Absolute Auto 100 /uL (0-100); Basophils Percent Auto 0.6 % (0-2); Eosinophils Absolute Auto 200 /uL (0-450); Eosinophils Percent Auto 2.2 % (2-4); Hematocrit 43.2 % (36-46); Hemoglobin 14.2 g/dL (12.0-16.0); Lymphocytes Absolute Auto 2400 /uL (1100-4500); Lymphocytes Percent Auto 27.6 % (25-40); Mean Corpuscular HGB Conc 32.9 % (30-36); Mean Corpuscular Hemoglobin 33.3 PG (26-34); Mean Corpuscular Volume 101.2 fL (80-100); Monocytes Absolute Auto 800 /uL (0-900); Monocytes Percent Auto 8.7 % (3-14); Neutrophils Absolute Auto 5400 /uL (1500-7000); Neutrophils Percent Auto 60.9 % (50-75); Platelet Count 290 X10^3/uL (150-400); Red Blood Cell Count 4.27 X10^6/uL (4.0-5.2); Red Cell Distribution Width 14.5 % (11.6-14.8); White Blood Cell Count 8.9 X10^3/uL (4.5-11.0)
[2024-12-08 08:25] LABS: Alanine Aminotransferase 17 IU/L (<35); Albumin 4.1 g/dL (3.5-5.0); Albumin Globulin Ratio 1.8 (1.0-2.8); Alkaline Phosphatase 87 U/L (38-126); Aspartate Aminotransferase 21 IU/L (14-36); BUN Creatinine Ratio 17.1 (6-22); Bilirubin Total 0.4 mg/dL (0.2-1.3); Blood Urea Nitrogen 14 mg/dL (7-17); Calcium 9.2 mg/dL (8.4-10.2); Carbon Dioxide 28 mmol/L (22-32); Chloride 103 mmol/L (98-107); Estimated Glomerular Filt Rate > 60 mL/min (>60); Globulin 2.3 g/dL (1.7-4.1); Glucose 110 mg/dL (80-110); HEMOLYSIS < 15 (0-50); Potassium 4.6 mmol/L (3.4-5.1); Sodium 138 mmol/L (137-145); Total Protein 6.4 g/dL (6.3-8.2)
[2024-12-08 08:40] LABS: Vitamin D 25 Hydroxy (D3) 47.4 ng/mL (30.0-100.0)
[2024-12-08 09:30] LABS: Folate 9.5 ng/mL (2.76-20.0); Vitamin B12 426 pg/mL (239-931)
== END ==
PROVIDERS: PCP Nurse Practitioner Family; Visit Provider Registered Nurse
DX: D64.9 Anemia, unspecified (principal); I10 Essential (primary) hypertension; R10.9 Unspecified abdominal pain; E55.9 Vitamin D deficiency, unspecified
CPT/HCPCS: 36415; 80053; 82306; 82607; 82746; 84443; 85025

== ENCOUNTER → 2024-12-14 12:47 | Outpatient (CLI) | payer MEDICARE, MEDICAID, SELFPAY ==
[2024-07-20 19:55] VITALS: BMI 38.2
--- NOTE | 2024-12-14 12:51 | DI.CT.S_ITS ---
PROCEDURE: CT LUNG LOW DOSE SCREENING INDICATIONS: F/U CT TECHNIQUE: Noncontrast 2.0-2.5 mm thick sections acquired from the pulmonary apices to the posterior costophrenic angles. 7 mm thick axial MIP, and 5 mm coronal and sagittal reformats were then acquired. For radiation dose reduction, the following was used: automated exposure control, adjustment of mA and/or kV according to patient size. COMPARISON: [facility], CT, CT CHEST WO [facility], 07/14/2024, 9:18. FINDINGS: Image quality: Diagnostic. Lungs and Pleura: Interval decrease in bilateral posterior lower lobe reticulation, bronchiectasis, and atelectasis seen previously. Minor bibasilar septal scarring seen antral laterally mild residual ground-glass opacity posterolaterally in the right lower lobe. No pleural effusion. No suspicious nodule or mass. No significant bronchial wall thickening or mucous plugging. Lower Neck: No enlarged lymph nodes. Thyroid: Normal CT appearance. Axillae: No enlarged lymph nodes. Chest Wall: No suspicious chest wall lesions. Bones: No suspicious bone lesion. Mild degenerative changes in the spine. Thoracic Vessels: Pulmonary outflow tract is mildly enlarged at 3.4 cm in diameter. Aorta is normal caliber with mild atherosclerotic calcification. Mediastinum and Kelly: No enlarged lymph nodes. Heart: Heart size is normal. No pericardial effusion. Mild coronary artery calcification. Esophagus: No wall thickening. No hiatal hernia. Upper Abdomen: Mild hepatic steatosis. Cholecystectomy changes. Visible portions of upper abdominal organs are otherwise normal. IMPRESSION: Resolution of prior pulmonary disease. No suspicious lung nodule requiring follow-up. LUNG-RADS 1; continued annual screening, if eligible. Clinically Significant Non-pulmonary Findings: Chronic pulmonary artery enlargement. Correlate with hemodynamics. This may indicate pulmonary artery hypertension.. Dictated by: Jamaica Allen M.D. on 12/14/2024 at 16:22 Approved by: Jamaica Allen M.D. on 12/14/2024 at 16:48
== END ==
PROVIDERS: PCP Nurse Practitioner Family; Referring Provider Registered Nurse; Visit Provider Registered Nurse
DX: Z87.891 Personal history of nicotine dependence (principal); Z12.2 Encounter for screening for malignant neoplasm of respiratory organs; K76.0 Fatty (change of) liver, not elsewhere classified; I25.10 Atherosclerotic heart disease of native coronary artery without angina pectoris
CPT/HCPCS: 71271

== ENCOUNTER 2025-02-04 13:24 | Emergency (ER) | payer MEDICARE, MEDICAID, SELFPAY ==
[2024-07-20 19:55] VITALS: BMI 38.2
[2025-02-04] VITALS (34 sets, daily range): BP systolic 78–131; BP diastolic 43–80; PULSE 70–132; RESP 14–36; TEMP 36.8–36.9; O2SAT 91–96
--- NOTE | 2025-02-04 13:27 | DI.RAD.S_ITS ---
PROCEDURE: XR CHEST 1V INDICATIONS: chest pain TECHNIQUE: One view of the chest was acquired. COMPARISON: [facility], CR, XR CHEST 1V, 09/27/2024, 8:59. [facility], CR, XR CHEST 1V, 07/20/2024, 16:19. FINDINGS: Surgical changes and devices: None. Lungs and pleura: Lungs are clear. No pleural effusions or pneumothorax. Mediastinum: Mediastinal contours appear normal. Heart size is normal. Bones and chest wall: No suspicious bony lesions. Overlying soft tissues appear unremarkable. IMPRESSION: No acute cardiopulmonary abnormality is seen. Dictated by: Riley John M.D. on 02/04/2025 at 14:08 Approved by: Riley John M.D. on 02/04/2025 at 14:08
--- NOTE | 2025-02-04 13:36 | EKG_ITS ---
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
--- NOTE | 2025-02-04 13:44 | PC.NURSE ---
Pt arrives by EMS. States that she is feeling a little short of breath and wants to be placed on 2 L per NC. Sats 93%, placed on 2 L per NC. HR 121 no chest pain or respiratory distress noted.
[2025-02-04 13:56] LABS: INR 0.9 (0.9-1.3); Prothrombin Time 10.5 SECONDS (9.4-12.5)
[2025-02-04 13:59] LABS: Add Manual Diff / Slide Review NO; Basophils Absolute Auto 100 /uL (0-100); Eosinophils Absolute Auto 200 /uL (0-450); Hematocrit 42.6 % (36-46); Hemoglobin 14.1 g/dL (12.0-16.0); Lymphocytes Absolute Auto 2200 /uL (1100-4500); Mean Corpuscular HGB Conc 33.2 % (30-36); Mean Corpuscular Hemoglobin 33.5 PG (26-34); Mean Corpuscular Volume 100.9 fL (80-100); Monocytes Absolute Auto 700 /uL (0-900); Monocytes Percent Auto 7.7 % (3-14); Neutrophils Absolute Auto 6300 /uL (1500-7000); Neutrophils Percent Auto 66.3 % (50-75); PTT Partial Thromboplastin Tim 23 SECONDS (25.1-36.5); Platelet Count 307 X10^3/uL (150-400); Red Blood Cell Count 4.22 X10^6/uL (4.0-5.2); Red Cell Distribution Width 14.4 % (11.6-14.8); White Blood Cell Count 9.6 X10^3/uL (4.5-11.0)
--- NOTE | 2025-02-04 13:59 | ED.NAVMDI ---
HPI - Nausea/Vomiting/Diarrhea General Chief complaint: Nausea/Vomiting/Diarrhea Stated complaint: n/v, new a.fib. Time Seen by Provider: 02/04/25 13:58 Source: EMS Mode of arrival: EMS History of Present Illness HPI Narrative: 74-year-old female history of high blood pressure, COPD, anemia, presents with shortness of breath and cough for 2 months nonproductive and concerns for possible atrial fibrillation sent over for further evaluation other than what is stated 14 point review of system is negative Related Data Home Medications Medication Instructions Recorded Confirmed albuterol sulfate 90 mcg/actuation 0.09 mg IH BID ##0 01/15/12 07/20/24 aerosol inhaler (Proventil HFA) fluticasone propionate 220 1 puff INH Q DAY ##12 08/14/12 07/20/24 mcg/actuation HFA aerosol inhaler (Flovent HFA) colesevelam 625 mg tablet 625 mg PO BID 02/11/24 07/20/24 cyclobenzaprine 10 mg tablet 10 mg PO BID 02/11/24 07/20/24 duloxetine 60 mg capsule,delayed 60 mg PO BID 02/11/24 07/20/24 release lubiprostone 24 mcg capsule 24 mcg PO DAILY 02/11/24 07/20/24 (Amitiza) montelukast 10 mg tablet 10 mg PO DAILY 02/11/24 07/20/24 benzonatate 200 mg capsule 200 mg PO BID PRN Cough 07/08/24 07/20/24 cholecalciferol (vitamin D3) 125 125 mcg PO DAILY 07/08/24 07/20/24 mcg (5,000 unit) tablet (Vitamin D3) cyclosporine 0.05 % eye drops in a 0.05 drp EYE-BOTH BID 07/08/24 07/20/24 dropperette (Restasis) ferrous sulfate 325 mg (65 mg 325 mg PO DAILY 07/08/24 07/20/24 iron) tablet gabapentin 600 mg tablet 600 mg PO TID 07/08/24 07/20/24 ipratropium bromide 21 mcg (0.03 0.06 spray intranasal TID 07/08/24 07/20/24 %) nasal spray tiotropium bromide 2.5 2 inh inhalation QAM 07/08/24 07/20/24 mcg/actuation mist for inhalation (Spiriva Respimat) triamcinolone acetonide 0.1 % 0.5 applic topical BID 07/08/24 07/20/24 topical ointment Previous Rx's Medication Instructions Recorded cefdinir 300 mg capsule 300 mg PO Q12H #20 caps 09/27/24 prednisone 20 mg tablet 20 mg PO DAILY #5 tabs 09/27/24 tiotropium bromide 18 mcg capsule 1 cap inhalation DAILY #90 09/27/24 with inhalation device (Spiriva inhalations with HandiHaler) metoprolol succinate 50 mg 50 mg PO BID #30 tabs 02/04/25 tablet,extended release 24 hr Allergies Allergy/AdvReac Type Severity Reaction Status Date / Time imipramine [IMIPRAMINE] Allergy Severe throat Verified 07/20/24 16:03 swelling influenza virus vaccine, Allergy Severe arm and Verified 07/20/24 16:03 specific body [INFLUENZA VIRUS swelling VACC,SPECIFIC] pneumococcal vaccine Allergy Severe body Verified 07/20/24 16:03 [PNEUMOCOCCAL VACCINE] swelling eucalyptus [EUCALYPTUS] Allergy Mild Verified 07/20/24 16:03 oxycodone [OXYCODONE] AdvReac Severe panic Verified 07/20/24 16:03 feeling rasagiline [From AZILECT] AdvReac Severe suicidal Verified 07/20/24 16:03 carbidopa [CARBIDOPA] AdvReac Mild nausea & Verified 07/20/24 16:03 vomiting Sulfa (Sulfonamide AdvReac Mild n/v Verified 07/20/24 16:03 Antibiotics) [SULFA (SULFONAMIDE ANTIBIOTICS)] sulfacetamide [SULFACETAMIDE] AdvReac Mild n/v Verified 07/20/24 16:03 TOMATOES Allergy Mild N/V Uncoded 07/20/24 16:03 TORFANIL Allergy Unknown PER PT Uncoded 07/20/24 16:03 Patient History Social History household members: other Smoking Status: Current every day smoker alcohol intake: former Smoking Status: Current every day smoker tobacco type: cigarettes alcohol intake frequency: 0-2 drinks per day Exam Initial Vital Signs Initial Vital Signs: Vital Signs Temperature 98.2 F 02/04/25 13:24 Pulse Rate 121 H 02/04/25 13:24 Respiratory Rate 22 02/04/25 13:24 Blood Pressure 125/80 02/04/25 13:24 Pulse Oximetry 95 02/04/25 13:24 Oxygen Delivery Method Room Air 02/04/25 13:24 Course Orders Ordered: ED Orders 02/04/25 13:27 XR chest 1V Stat EKG-12 Lead Stat 02/04/25 13:30 Complete Blood Count AUTO DIFF Stat Comprehensive Metabolic Panel Stat Lipase Stat Magnesium Stat NT-proBNP (BNP-Adult 18+) Stat PTT Partial Thromboplastin Lopez Stat Prothrombin Time INR Stat TSH [Thyroid Stimulating Hormone] Stat Troponin & CK Cardiac Panel Stat 02/04/25 14:05 CT angio chest PE protocol Stat 02/04/25 15:00 Covid-19 + FLU A/B + RSV - PCR Stat 02/04/25 17:14 EKG-12 Lead Stat 02/04/25 17:20 Trop I [Troponin I] Stat Discontinued Medications Aspirin (Aspirin 81 Mg Chew Tab) 324 mg PO NOW ONE Stop: 02/04/25 13:28 Last Admin: 02/04/25 13:35 Dose: Not Given Documented By: Metoprolol Tartrate (Metoprolol Tartrate 5 Mg/5 Ml Inj) 5 mg IV Q5M [facility] Stop: 02/04/25 14:26 Last Admin: 02/04/25 15:30 Dose: 5 mg Documented By: Admin: 02/04/25 14:40 Dose: Not Given Documented By: Admin: 02/04/25 14:40 Dose: Not Given Documented By: Admin: 02/04/25 14:11 Dose: 5 mg Documented By: Metoprolol Tartrate (Metoprolol Tartrate 5 Mg/5 Ml Inj) 5 mg IV NOW ONE Stop: 02/04/25 17:30 Last Admin: 02/04/25 17:35 Dose: 5 mg Documented By: Vital Signs Vital signs: Vital Signs - 8 hr 02/04/25 13:24 02/04/25 14:14 02/04/25 14:18 Temperature 98.2 F Pulse Rate 121 H 121 H 108 H Respiratory Rate 22 14 33 H Blood Pressure 125/80 119/60 Pulse Oximetry 95 95 95 Oxygen Delivery Method Room Air Room Air 02/04/25 14:20 02/04/25 14:20 02/04/25 14:21 Temperature Pulse Rate 118 H 105 H 107 H Respiratory Rate 21 20 Blood Pressure 108/56 L Pulse Oximetry 96 94 94 Oxygen Delivery Method 02/04/25 14:21 02/04/25 14:25 02/04/25 14:25 Temperature Pulse Rate 108 H Respiratory Rate 19 Blood Pressure 108/56 L 94/49 L Pulse Oximetry 94 Oxygen Delivery Method 02/04/25 14:30 02/04/25 14:30 02/04/25 14:32 Temperature Pulse Rate 109 H 110 H Respiratory Rate 31 H 26 H Blood Pressure 78/48 L Pulse Oximetry 94 94 Oxygen Delivery Method Room Air 02/04/25 14:32 02/04/25 14:41 02/04/25 14:41 Temperature Pulse Rate 108 H Respiratory Rate 19 Blood Pressure 93/63 113/65 Pulse Oximetry 94 Oxygen Delivery Method 02/04/25 14:45 02/04/25 14:45 02/04/25 14:51 Temperature Pulse Rate 110 H Respiratory Rate 20 Blood Pressure 95/53 L 78/43 L Pulse Oximetry 94 Oxygen Delivery Method 02/04/25 14:51 02/04/25 14:53 02/04/25 14:53 Temperature Pulse Rate 108 H 109 H Respiratory Rate 30 H 32 H Blood Pressure 102/62 Pulse Oximetry 94 94 Oxygen Delivery Method 02/04/25 14:59 02/04/25 14:59 02/04/25 15:00 Temperature Pulse Rate 132 H 111 H Respiratory Rate 24 25 H Blood Pressure 100/58 L Pulse Oximetry 94 95 Oxygen Delivery Method Room Air 02/04/25 15:23 02/04/25 15:23 02/04/25 15:26 Temperature Pulse Rate 106 H 107 H Respiratory Rate 27 H 20 Blood Pressure 123/59 L Pulse Oximetry 95 96 Oxygen Delivery Method 02/04/25 15:26 02/04/25 15:30 02/04/25 15:30 Temperature Pulse Rate 109 H 117 H Respiratory Rate 21 27 H Blood Pressure 116/70 94/66 Pulse Oximetry 95 95 Oxygen Delivery Method 02/04/25 15:42 02/04/25 15:42 02/04/25 15:45 Temperature Pulse Rate 110 H 103 H Respiratory Rate 22 34 H Blood Pressure 131/72 Pulse Oximetry 96 96 Oxygen Delivery Method 02/04/25 15:45 02/04/25 15:50 02/04/25 15:50 Temperature Pulse Rate 103 H Respiratory Rate 16 Blood Pressure 112/72 115/56 L Pulse Oximetry 95 Oxygen Delivery Method 02/04/25 15:55 02/04/25 15:55 02/04/25 16:00 Temperature Pulse Rate 103 H Respiratory Rate 17 Blood Pressure 102/57 L 102/62 Pulse Oximetry 94 Oxygen Delivery Method 02/04/25 16:00 02/04/25 16:05 02/04/25 16:05 Temperature Pulse Rate 104 H 70 Respiratory Rate 16 21 Blood Pressure 116/75 Pulse Oximetry 93 92 Oxygen Delivery Method 02/04/25 16:10 02/04/25 16:10 02/04/25 16:16 Temperature Pulse Rate 71 104 H Respiratory Rate 32 H 22 Blood Pressure 106/64 Pulse Oximetry 93 92 Oxygen Delivery Method 02/04/25 16:16 02/04/25 16:30 02/04/25 16:31 Temperature Pulse Rate 70 105 H Respiratory Rate 22 21 Blood Pressure 108/68 Pulse Oximetry 92 92 Oxygen Delivery Method 02/04/25 16:31 02/04/25 16:45 02/04/25 16:45 Temperature Pulse Rate 90 Respiratory Rate 28 H Blood Pressure 126/72 131/64 Pulse Oximetry 92 93 Oxygen Delivery Method Room Air 02/04/25 17:00 02/04/25 17:00 02/04/25 17:15 Temperature Pulse Rate 102 H 105 H Respiratory Rate 18 21 Blood Pressure 120/62 Pulse Oximetry 93 95 Oxygen Delivery Method 02/04/25 17:15 02/04/25 17:30 02/04/25 17:31 Temperature Pulse Rate 105 H 103 H Respiratory Rate 36 H 21 Blood Pressure 105/56 L Pulse Oximetry 91 95 Oxygen Delivery Method Room Air 02/04/25 17:31 02/04/25 17:51 02/04/25 17:51 Temperature Pulse Rate 100 H Respiratory Rate 22 Blood Pressure 124/78 122/63 Pulse Oximetry 96 Oxygen Delivery Method MDM - Nausea/Vomiting/Diarrhea Lab Data 02/04/25 13:30 02/04/25 13:30 Labs: Lab Results 02/04/25 02/04/25 02/04/25 Range/Units 13:30 15:00 17:20 WBC 9.6 (4.5-11.0) X10^3/uL RBC 4.22 (4.0-5.2) X10^6/uL Hgb 14.1 (12.0-16.0) g/dL Hct 42.6 (36-46) % MCV 100.9 H (80-100) fL MCH 33.5 (26-34) PG MCHC 33.2 (30-36) % RDW 14.4 (11.6-14.8) % Plt Count 307 (150-400) X10^3/uL Neut % (Auto) 66.3 (50-75) % Lymph % (Auto) 23.0 L (25-40) % [place] % (Auto) 7.7 (3-14) % Eos % (Auto) 2.0 (2-4) % Baso % (Auto) 1.0 (0-2) % Neut # (Auto) 6300 (5472-4321) /uL Lymph # (Auto) 2200 (2696-9231) /uL [place] # (Auto) 700 (0-900) /uL Eos # (Auto) 200 (0-450) /uL Baso # (Auto) 100 (0-100) /uL PT 10.5 (9.4-12.5) SECONDS INR 0.9 (0.9-1.3) APTT 23 L (25.1-36.5) SECONDS Sodium 138 (137-145) mmol/L Potassium 4.0 (3.4-5.1) mmol/L Chloride 105 (98-107) mmol/L Carbon Dioxide 25 (22-32) mmol/L BUN 11 (7-17) mg/dL Creatinine 0.76 (0.52-1.04) mg/dL Estimated GFR > 60 (>60) mL/min BUN/Creatinine Ratio 14.5 (6-22) Glucose 145 H (80-110) mg/dL Calcium 9.2 (8.4-10.2) mg/dL Magnesium 1.9 (1.6-2.3) mg/dL Total Bilirubin 0.4 (0.2-1.3) mg/dL AST 27 (14-36) IU/L ALT 22 (<35) IU/L Alkaline Phosphatase 93 (38-126) U/L Total Creatine Kinase 41 (30-135) U/L Troponin I < 0.012 < 0.012 (0.01-0.034) ng/mL NT-Pro-B Natriuret Pep 89 (<125) pg/mL Total Protein 6.9 (6.3-8.2) g/dL Albumin 4.1 (3.5-5.0) g/dL Globulin 2.8 (1.7-4.1) g/dL Albumin/Globulin Ratio 1.5 (1.0-2.8) Lipase 150 (23-300) U/L TSH 1.03 (0.47-4.68) uIU/mL SARS-CoV-2 (PCR) Negative (Negative) Influenza A (RT-PCR) Flu a negative (NEGATIVE) Influenza B (RT-PCR) Flu b negative (NEGATIVE) RSV (PCR) Negative (Negative) Imaging Data Chest x-ray: Radiologist's Impression: [address] [address] XRay Report Signed Patient: Suze Desai MR#: [id number] : 1950 Acct:[id number] Age/Sex: 74 / F Date of Service: 02/04/25 Loc: ED Accession Number: [id number] Procedure: XR chest 1V Ordering Provider: Ruddy Brown D.O. PROCEDURE: XR CHEST 1V INDICATIONS: chest pain TECHNIQUE: One view of the chest was acquired. COMPARISON: [facility], CR, XR CHEST 1V, 09/27/2024, 8:59. [facility], CR, XR CHEST 1V, 07/20/2024, 16:19. FINDINGS: Surgical changes and devices: None. Lungs and pleura: Lungs are clear. No pleural effusions or pneumothorax. Mediastinum: Mediastinal contours appear normal. Heart size is normal. Bones and chest wall: No suspicious bony lesions. Overlying soft tissues appear unremarkable. IMPRESSION: No acute cardiopulmonary abnormality is seen. ECG Data Interpretation: EKG #1 Sinus Tachy HR 123 VA 160 QRS [address]-t wave changes NO old ekg to compare against EKG #2 Sinus Tachy VA 152 QRS [address]-t wave change NO change compared to ekg #1 MDM Narrative Medical decision making narrative: All lab work and CT scan all reviewed including nurse triage note medication list vital signs and previous ER visits. Patient was given metoprolol 5 mg IV x2 after HR was 120-130s now 80s. Differential diagnosis includes thyroid disease, PE, dehydration, sepsis, electrolyte derangement, anemia. 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 D/c home on metoprolol 50mg BID #30 rx Discharge Plan Departure Patient Disposition: Home Clinical Impression: Tachycardia Activity Restrictions/Additional Instructions: Return with new or worsening symptoms. Take your medicines as directed. 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 Prescriptions: New metoprolol succinate 50 mg tablet extended release 24 hr 50 mg PO BID Qty: 30 0RF No Action albuterol sulfate [Proventil HFA] 90 MCG/PUFF HFA aerosol inhaler 0.09 mg IH BID Qty: 0 fluticasone propionate [Flovent HFA] 12 GM HFA aerosol inhaler 1 puff INH Q DAY Qty: 12 lubiprostone [Amitiza] 24 mcg capsule 24 mcg PO DAILY colesevelam 625 mg tablet 625 mg PO BID cyclobenzaprine 10 mg tablet 10 mg PO BID duloxetine 60 mg capsule,delayed release(DR/EC) 60 mg PO BID montelukast 10 mg tablet 10 mg PO DAILY tiotropium bromide [Spiriva with HandiHaler] 18 mcg capsule, w/inhalation device 1 cap inhalation DAILY Qty: 90 0RF Rx Instructions: puncture 1 cap using device; one dose = 2 inhalations prednisone 20 mg tablet 20 mg PO DAILY Qty: 5 0RF cefdinir 300 mg capsule 300 mg PO Q12H Qty: 20 0RF benzonatate 200 mg capsule 200 mg PO BID PRN (Reason: Cough) gabapentin 600 mg tablet 600 mg PO TID ferrous sulfate 325 mg (65 mg iron) Tablet 325 mg PO DAILY triamcinolone acetonide 0.1 % ointment 0.5 applic topical BID ipratropium bromide 21 mcg (0.03 %) spray,non-aerosol 0.06 spray intranasal TID cyclosporine [Restasis] 0.05 % Dropperette 0.05 drp EYE-BOTH BID cholecalciferol (vitamin D3) [Vitamin D3] 125 mcg (5,000 unit) Tablet 125 mcg PO DAILY Spiriva Respimat 2.5 mcg/actuation Mist 2 inh INHALATION QAM Referrals: Peggy Alves ARNP [Primary Care Provider] - Stand Alone Forms: Patient Portal/API/Survey
[2025-02-04 14:02] LABS: Alanine Aminotransferase 22 IU/L (<35); Albumin 4.1 g/dL (3.5-5.0); Albumin Globulin Ratio 1.5 (1.0-2.8); Alkaline Phosphatase 93 U/L (38-126); Aspartate Aminotransferase 27 IU/L (14-36); BUN Creatinine Ratio 14.5 (6-22); Bilirubin Total 0.4 mg/dL (0.2-1.3); Blood Urea Nitrogen 11 mg/dL (7-17); Calcium 9.2 mg/dL (8.4-10.2); Carbon Dioxide 25 mmol/L (22-32); Chloride 105 mmol/L (98-107); Creatine Kinase 41 U/L (30-135); Estimated Glomerular Filt Rate > 60 mL/min (>60); Globulin 2.8 g/dL (1.7-4.1); Glucose 145 mg/dL (80-110); HEMOLYSIS < 15 (0-50); Lipase 150 U/L (23-300); Magnesium 1.9 mg/dL (1.6-2.3); Sodium 138 mmol/L (137-145); Total Protein 6.9 g/dL (6.3-8.2)
--- NOTE | 2025-02-04 14:05 | DI.CT.S_ITS ---
PROCEDURE: CT ANGIO CHEST PE PROTOCOL INDICATIONS: sob/nunes TECHNIQUE: After the administration of intravenous contrast, 2 mm thick sections acquired from the pulmonary apices to the posterior costophrenic angles. 3-dimensional maximum intensity projection (MIP) coronal and sagittal reformats were then acquired through the thorax. For radiation dose reduction, the following was used: automated exposure control, adjustment of mA and/or kV according to patient size. COMPARISON: [facility], CT, CT LUNG LOW DOSE SCREENING, 12/14/2024, 13:33. [facility], CT, CT CHEST WO CON, 07/14/2024, 9:18. [facility], CT, CT CHEST ABD PEL W CON, 07/08/2024, 8:19. FINDINGS: Image quality: Diagnostic. Pulmonary arteries: Pulmonary arteries are normal in size, and demonstrate no intraluminal filling defects to suggest central pulmonary embolism. Lower Neck: No enlarged lymph nodes. Thyroid: No thyroid nodules which require sonographic follow up, per consensus guidelines. Axillae: No enlarged lymph nodes. Chest Wall: Unremarkable. Bones: Unremarkable. Lungs and Pleura: No pneumothorax or pleural effusions. No consolidation or suspicious nodules. Heart: Heart size is normal. No pericardial effusion. Thoracic Vessels: No aortic aneurysm. Mediastinum and Kelly: No enlarged lymph nodes. Esophagus: No wall thickening. No hiatal hernia. Upper Abdomen: Visualized upper abdomen solid organs and bowel loops appear normal. IMPRESSION: No pulmonary embolus. No acute cardiopulmonary process. Dictated by: Diego Oleary M.D. on 02/04/2025 at 15:32 Approved by: Diego Oleary M.D. on 02/04/2025 at 15:33
[2025-02-04] MEDS: METOPROLOL TARTRATE 5 MG/5 ML INJ IV ×3 (14:11→17:35)
[2025-02-04 14:13] LABS: NT-proBNP (BNP-Adult 18+) 89 pg/mL (<125); Troponin I < 0.012 ng/mL (0.01-0.034)
--- NOTE | 2025-02-04 14:37 | PC.NURSE ---
BP 93/54 HR 107. Only given one dose of metoprolol. BP dropped from 120/78
[2025-02-04 14:48] LABS: Thyroid Stimulating Hormone 1.03 uIU/mL (0.47-4.68)
--- NOTE | 2025-02-04 15:14 | PC.NURSE ---
Pt continues to remain SOB. in room with pt. Discussed BP and Metoprolol administration. BP dropped after one dose. MD aware.
[2025-02-04 15:47] LABS: Influenza A - CEPHEID Flu A NEGATIVE (NEGATIVE); Influenza B - CEPHEID Flu B NEGATIVE (NEGATIVE); Respiratory Syncytial Virus Negative (Negative)
[2025-02-04 15:52] LABS: COVID-19 CEPHEID 4-PLEX PCR Negative (Negative)
--- NOTE | 2025-02-04 17:14 | EKG_ITS ---
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
[2025-02-04 17:53] LABS: Troponin I < 0.012 ng/mL (0.01-0.034)
== END 2025-02-04 18:30 | disposition home or self-care (01) ==
PROVIDERS: Emergency Provider Family Medicine; PCP Nurse Practitioner Family
DX: R00.0 Tachycardia, unspecified (principal); R07.9 Chest pain, unspecified
CPT/HCPCS: 0241U; 36415; 71045; 71275; 80053; 82550; 83690; 83735; 83880; 84443; 84484; 85025; 85610; 85730; 93005; 96374; 96376; 99284; Q9967

== ENCOUNTER 2025-03-15 14:05 | Emergency (ER) | payer MEDICARE, MEDICAID, SELFPAY ==
[2024-07-20 19:55] VITALS: BMI 38.2
[2025-03-15 14:21] VITALS: BP 117/83; PULSE 94; RESP 118; TEMP 36.4; O2SAT 97; BMI 34.1
[2025-03-15 14:44] VITALS: PULSE 113; O2SAT 94
[2025-03-15 15:00] VITALS: PULSE 111; O2SAT 93
--- NOTE | 2025-03-15 15:12 | ED.PSYCH ---
HPI - Psych General Chief Complaint: Psychiatric Symptoms Stated Complaint: mental health Time Seen by Provider: 03/15/25 14:28 Source: patient Mode of arrival: EMS History of Present Illness HPI Narrative: Patient brought here by ambulance from [facility]. Patient here to be evaluated for suicide ideation. At this time patient denies denies any thoughts of hurting herself. She explained very clearly and concise layer of the events of today with her behavioral health/psychiatric nurse provider. She states she gets weekly visits from a psychiatric nurse. Today, a new 1 had arrived and patient states her statements of suicide ideations is not new. She is not happy with the living situation that she is then and that is why she expressed those comments but she states she will not hurt herself. She states she made a contract with the psychiatric nurse today that she would not hurt herself and she will be seen again by the provider next Friday. The alf staff saw the report and patient feels that they had to respond by forcing her to come here. 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, and decided to be pleasant and comply with their directions. Again, she has no thoughts of hurting herself or others. She is awake alert oriented x4. Tomorrow is her birthday. Related Data Home Medications Medication Instructions Recorded Confirmed albuterol sulfate 90 mcg/actuation 0.09 mg IH BID ##0 01/15/12 07/20/24 aerosol inhaler (Proventil HFA) fluticasone propionate 220 1 puff INH Q DAY ##12 08/14/12 07/20/24 mcg/actuation HFA aerosol inhaler (Flovent HFA) colesevelam 625 mg tablet 625 mg PO BID 02/11/24 07/20/24 cyclobenzaprine 10 mg tablet 10 mg PO BID 02/11/24 07/20/24 duloxetine 60 mg capsule,delayed 60 mg PO BID 02/11/24 07/20/24 release lubiprostone 24 mcg capsule 24 mcg PO DAILY 02/11/24 07/20/24 (Amitiza) montelukast 10 mg tablet 10 mg PO DAILY 02/11/24 07/20/24 benzonatate 200 mg capsule 200 mg PO BID PRN Cough 07/08/24 07/20/24 cholecalciferol (vitamin D3) 125 125 mcg PO DAILY 07/08/24 07/20/24 mcg (5,000 unit) tablet (Vitamin D3) cyclosporine 0.05 % eye drops in a 0.05 drp EYE-BOTH BID 07/08/24 07/20/24 dropperette (Restasis) ferrous sulfate 325 mg (65 mg 325 mg PO DAILY 07/08/24 07/20/24 iron) tablet gabapentin 600 mg tablet 600 mg PO TID 07/08/24 07/20/24 ipratropium bromide 21 mcg (0.03 0.06 spray intranasal TID 07/08/24 07/20/24 %) nasal spray tiotropium bromide 2.5 2 inh inhalation QAM 07/08/24 07/20/24 mcg/actuation mist for inhalation (Spiriva Respimat) triamcinolone acetonide 0.1 % 0.5 applic topical BID 07/08/24 07/20/24 topical ointment Previous Rx's Medication Instructions Recorded cefdinir 300 mg capsule 300 mg PO Q12H #20 caps 09/27/24 prednisone 20 mg tablet 20 mg PO DAILY #5 tabs 09/27/24 tiotropium bromide 18 mcg capsule 1 cap inhalation DAILY #90 09/27/24 with inhalation device (Spiriva inhalations with HandiHaler) metoprolol succinate 50 mg 50 mg PO BID #30 tabs 02/04/25 tablet,extended release 24 hr Allergies Allergy/AdvReac Type Severity Reaction Status Date / Time imipramine [IMIPRAMINE] Allergy Severe throat Verified 07/20/24 16:03 swelling influenza virus vaccine, Allergy Severe arm and Verified 07/20/24 16:03 specific body [INFLUENZA VIRUS swelling VACC,SPECIFIC] pneumococcal vaccine Allergy Severe body Verified 07/20/24 16:03 [PNEUMOCOCCAL VACCINE] swelling eucalyptus [EUCALYPTUS] Allergy Mild Verified 07/20/24 16:03 oxycodone [OXYCODONE] AdvReac Severe panic Verified 07/20/24 16:03 feeling rasagiline [From AZILECT] AdvReac Severe suicidal Verified 07/20/24 16:03 carbidopa [CARBIDOPA] AdvReac Mild nausea & Verified 07/20/24 16:03 vomiting Sulfa (Sulfonamide AdvReac Mild n/v Verified 07/20/24 16:03 Antibiotics) [SULFA (SULFONAMIDE ANTIBIOTICS)] sulfacetamide [SULFACETAMIDE] AdvReac Mild n/v Verified 07/20/24 16:03 TOMATOES Allergy Mild N/V Uncoded 07/20/24 16:03 TORFANIL Allergy Unknown PER PT Uncoded 07/20/24 16:03 Review of Systems Review of Systems Narrative: GENERAL: Negative chills, fatigue, malaise, fever, sweats. HEENT: Negative sinus pain, ear pain, sore throat RESPIRATORY: Negative dyspnea, cough CARDIOVASCULAR: Negative chest pain, palpitations GASTROINTESTINAL: Negative vomiting, nausea, abdominal pain : Negative dysuria, frequency, hematuria MUSCULOSKELETAL: Negative muscle or bony pain SKIN: Negative rash, skin lesions NEUROLOGIC: Negative weakness, numbness Psychiatric: Negative SI negative HI negative auditory or visual hallucinations ROS Unobtainable: All systems reviewed & are unremarkable except as noted in HPI and below Patient History Social History household members: other Smoking Status: Current every day smoker alcohol intake: former Smoking Status: Current every day smoker tobacco type: cigarettes alcohol intake frequency: 0-2 drinks per day Exam Narrative Exam Narrative: GENERAL: in no distress, not toxic not dyspneic HEAD: Normocephalic. EYES: Pupils equal round ENT: Mucous membranes moist. NECK: Trachea midline. CARDIOVASCULAR: Regular rate and rhythm RESPIRATORY: Clear to auscultation. Breath sounds equal bilaterally. No wheezes, rales, or rhonchi. GASTROINTESTINAL: Abdomen soft, non-tender EXTREMITIES: No gross deformities. NEURO: AOx4. Clear speech SKIN: Warm and dry PSYCH: Not anxious, is cooperative, denies any SI or HI or auditory or visual hallucinations. Initial Vital Signs Initial Vital Signs: Vital Signs Temperature 97.6 F 03/15/25 14:21 Pulse Rate 94 H 03/15/25 14:21 Respiratory Rate 118 H 03/15/25 14:21 Blood Pressure 117/83 03/15/25 14:21 Pulse Oximetry 97 03/15/25 14:21 Oxygen Delivery Method Room Air 03/15/25 14:21 Course Orders Ordered: ED Orders 03/15/25 14:50 Consult to QUALITY WORKER - Plant Supervisor Stat Vital Signs Vital signs: Vital Signs - 8 hr 03/15/25 14:21 03/15/25 14:44 03/15/25 15:00 Temperature 97.6 F Pulse Rate 94 H 113 H 111 H Respiratory Rate 118 H Blood Pressure 117/83 Pulse Oximetry 97 94 93 Oxygen Delivery Method Room Air 03/15/25 15:30 03/15/25 15:38 03/15/25 15:40 Temperature Pulse Rate 111 H 110 H 111 H Respiratory Rate 18 Blood Pressure 109/71 109/71 Pulse Oximetry 93 94 Oxygen Delivery Method Room Air MDM - Psych MDM Narrative Medical decision making narrative: Patient brought here by ambulance from [facility]. Patient here to be evaluated for suicide ideation. At this time patient denies denies any thoughts of hurting herself. She explained very clearly and concise layer of the events of today with her behavioral health/psychiatric nurse provider. She states she gets weekly visits from a psychiatric nurse. Today, a new 1 had arrived and patient states her statements of suicide ideations is not new. She is not happy with the living situation that she is then and that is why she expressed those comments but she states she will not hurt herself. She states she made a contract with the psychiatric nurse today that she would not hurt herself and she will be seen again by the provider next Friday. The alf staff saw the report and patient feels that they had to respond by forcing her to come here. 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, and decided to be pleasant and comply with their directions. Again, she has no thoughts of hurting herself or others. She is awake alert oriented x4. Tomorrow is her birthday After history and exam, social work consult, no blood work or EKG indicated this time. Patient does have history of tachycardia from previous visits. At this time patient denies any SI or HI. [facility] Medical records reviewed: No recent visit for this complaint Differential considered: Includes but not limited to depression anxiety suicide ideation Lab Test results independently reviewed as above. Pertinent findings: None indicated at this time Independently reviewed EKG none indicated at this time Imaging studies independently reviewed: None indicated at this time Consultations: 3:16 p.m.. Spoke with Kiersten pediatric social worker, she has evaluated patient. She does not feel patient needs to be admitted or transferred. I agree, I have had a long conversation with patient. She explained herself very well of her circumstances. She does not not want to hurt herself. She does agree for her sister, [id number] to be contacted that she is here. Kiersten has spoken with the psychiatric nurse and they psychiatric nurse had no plans of transferring patient here. She has contract with patient and feels comfortable patient to be at the alf. Did not need to be sent to the ER. Re-evaluations: Reviewed with patient treatment plan. She agrees. She does not want to hurt herself. She will be transferred back to [place] Discussion: Appropriate for discharge home. Exam is reassuring. They history patient gives history that is very reassuring. She does have appropriate behavioral health follow up. She desires discharge home. Return precautions reviewed. Diagnosis: Medical screening Discharge Plan Departure Patient Disposition: Home Clinical Impression: Encounter for medical screening examination Instructions: DI for Suicidal Ideation-Adult Activity Restrictions/Additional Instructions: Please see your provider as scheduled. Please continue home medications. Return if worse if any questions or concerns. Social work service as evaluated you today. Prescriptions: No Action albuterol sulfate [Proventil HFA] 90 MCG/PUFF HFA aerosol inhaler 0.09 mg IH BID Qty: 0 fluticasone propionate [Flovent HFA] 12 GM HFA aerosol inhaler 1 puff INH Q DAY Qty: 12 lubiprostone [Amitiza] 24 mcg capsule 24 mcg PO DAILY colesevelam 625 mg tablet 625 mg PO BID cyclobenzaprine 10 mg tablet 10 mg PO BID duloxetine 60 mg capsule,delayed release(DR/EC) 60 mg PO BID montelukast 10 mg tablet 10 mg PO DAILY tiotropium bromide [Spiriva with HandiHaler] 18 mcg capsule, w/inhalation device 1 cap inhalation DAILY Qty: 90 0RF Rx Instructions: puncture 1 cap using device; one dose = 2 inhalations prednisone 20 mg tablet 20 mg PO DAILY Qty: 5 0RF cefdinir 300 mg capsule 300 mg PO Q12H Qty: 20 0RF metoprolol succinate 50 mg tablet extended release 24 hr 50 mg PO BID Qty: 30 0RF benzonatate 200 mg capsule 200 mg PO BID PRN (Reason: Cough) gabapentin 600 mg tablet 600 mg PO TID ferrous sulfate 325 mg (65 mg iron) Tablet 325 mg PO DAILY triamcinolone acetonide 0.1 % ointment 0.5 applic topical BID ipratropium bromide 21 mcg (0.03 %) spray,non-aerosol 0.06 spray intranasal TID cyclosporine [Restasis] 0.05 % Dropperette 0.05 drp EYE-BOTH BID cholecalciferol (vitamin D3) [Vitamin D3] 125 mcg (5,000 unit) Tablet 125 mcg PO DAILY Spiriva Respimat 2.5 mcg/actuation Mist 2 inh INHALATION QAM Referrals: Peggy Alves ARNP [Primary Care Provider] - Stand Alone Forms: Patient Portal/API/Survey
[2025-03-15 15:30] VITALS: PULSE 111; O2SAT 93
[2025-03-15 15:38] VITALS: BP 109/71; PULSE 110
[2025-03-15 15:40] VITALS: BP 109/71; PULSE 111; RESP 18; O2SAT 94
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
== END 2025-03-15 15:38 | disposition home or self-care (01) ==
PROVIDERS: Emergency Provider Emergency Medicine; PCP Nurse Practitioner Family
DX: Z00.8 Encounter for other general examination (principal)
CPT/HCPCS: 99281; 99282

== ENCOUNTER → 2025-03-16 09:29 | Outpatient (ROUT) | payer MEDICARE, MEDICAID, SELFPAY ==
[2024-07-20 19:55] VITALS: BMI 38.2
[2025-03-16 09:53] LABS: Add Manual Diff / Slide Review NO; Basophils Absolute Auto 0 /uL (0-100); Basophils Percent Auto 0.5 % (0-2); Eosinophils Absolute Auto 200 /uL (0-450); Eosinophils Percent Auto 2.9 % (2-4); Hematocrit 40.1 % (36-46); Hemoglobin 13.5 g/dL (12.0-16.0); Lymphocytes Absolute Auto 1900 /uL (1100-4500); Lymphocytes Percent Auto 24.8 % (25-40); Mean Corpuscular HGB Conc 33.6 % (30-36); Mean Corpuscular Volume 101.2 fL (80-100); Monocytes Absolute Auto 600 /uL (0-900); Monocytes Percent Auto 7.6 % (3-14); Neutrophils Absolute Auto 4900 /uL (1500-7000); Neutrophils Percent Auto 64.2 % (50-75); Platelet Count 263 X10^3/uL (150-400); Red Blood Cell Count 3.96 X10^6/uL (4.0-5.2); Red Cell Distribution Width 14.3 % (11.6-14.8); White Blood Cell Count 7.6 X10^3/uL (4.5-11.0)
[2025-03-16 10:13] LABS: Alanine Aminotransferase 19 IU/L (<35); Albumin 3.5 g/dL (3.5-5.0); Albumin Globulin Ratio 1.4 (1.0-2.8); Alkaline Phosphatase 89 U/L (38-126); Aspartate Aminotransferase 22 IU/L (14-36); BUN Creatinine Ratio 18.4 (6-22); Bilirubin Total 0.5 mg/dL (0.2-1.3); Blood Urea Nitrogen 14 mg/dL (7-17); Calcium 8.8 mg/dL (8.4-10.2); Carbon Dioxide 29 mmol/L (22-32); Chloride 104 mmol/L (98-107); Estimated Glomerular Filt Rate > 60 mL/min (>60); Globulin 2.5 g/dL (1.7-4.1); Glucose 115 mg/dL (70-99); HEMOLYSIS < 15 (0-50); Potassium 4.1 mmol/L (3.4-5.1); Sodium 136 mmol/L (137-145)
[2025-03-16 10:39] LABS: Thyroid Stimulating Hormone 1.04 uIU/mL (0.47-4.68)
== END ==
LOC: LAB 09:29
PROVIDERS: PCP Nurse Practitioner Family; Visit Provider Registered Nurse
DX: J44.9 Chronic obstructive pulmonary disease, unspecified (principal); D64.9 Anemia, unspecified; F43.10 Post-traumatic stress disorder, unspecified
CPT/HCPCS: 36415; 80053; 84436; 84443; 85025

== ENCOUNTER → 2025-04-22 13:47 | Outpatient (CLI) | payer MEDICARE, MEDICAID, SELFPAY ==
[2024-07-20 19:55] VITALS: BMI 38.2
--- NOTE | 2025-04-22 14:02 | DI.RAD.S_ITS ---
PROCEDURE: XR CHEST 2V INDICATIONS: COPD, COUGH TECHNIQUE: 2 views of the chest were acquired. COMPARISON: [facility], CR, XR CHEST 1V, 02/04/2025, 13:37. FINDINGS: Surgical changes and devices: None. Lungs and pleura: Lungs are clear. Stable appearing right basilar scarring and or atelectasis. No pleural effusions or pneumothorax. Mediastinum: Mediastinal contours are normal. Heart size is normal. Bones and chest wall: No suspicious bony abnormalities. Soft tissues appear unremarkable. IMPRESSION: No acute cardiopulmonary abnormality is seen. Dictated by: Seferino Holden M.D. on 04/23/2025 at 0:09 Approved by: Seferino Holden M.D. on 04/23/2025 at 0:41
[2025-04-22 14:39] LABS: Hematocrit 43.8 % (36-46); Hemoglobin 14.4 g/dL (12.0-16.0); Mean Corpuscular Hemoglobin 33.5 PG (26-34); Mean Corpuscular Volume 101.7 fL (80-100); Platelet Count 296 X10^3/uL (150-400); Red Blood Cell Count 4.31 X10^6/uL (4.0-5.2); Red Cell Distribution Width 14.4 % (11.6-14.8); White Blood Cell Count 8.9 X10^3/uL (4.5-11.0)
[2025-04-22 15:15] LABS: BUN Creatinine Ratio 14.8 (6-22); Blood Urea Nitrogen 12 mg/dL (7-17); Calcium 9.3 mg/dL (8.4-10.2); Carbon Dioxide 26 mmol/L (22-32); Chloride 105 mmol/L (98-107); Estimated Glomerular Filt Rate > 60 mL/min (>60); Glucose 118 mg/dL (70-99); Potassium 4.2 mmol/L (3.4-5.1); Sodium 137 mmol/L (137-145)
[2025-04-22 15:16] LABS: HEMOLYSIS < 15 (0-50)
[2025-04-22 16:05] LABS: Vitamin B12 402 pg/mL (239-931)
[2025-04-22 16:23] LABS: Folate 8.7 ng/mL (2.76-20.0)
== END ==
PROVIDERS: PCP Nurse Practitioner Family; Referring Provider Registered Nurse; Visit Provider Registered Nurse
DX: J44.1 Chronic obstructive pulmonary disease with (acute) exacerbation (principal)
CPT/HCPCS: 36415; 71046; 80048; 82607; 82746; 85027

== ENCOUNTER → 2025-05-04 06:09 | Outpatient (ROUT) | payer MEDICARE, MEDICAID, SELFPAY ==
[2024-07-20 19:55] VITALS: BMI 38.2
[2025-05-04 08:50] LABS: Cortisol AM (Before 10AM) 1.26 ug/dL (4.46-22.7)
== END ==
PROVIDERS: Registered Nurse; PCP Nurse Practitioner Family
DX: R61 Generalized hyperhidrosis (principal)
CPT/HCPCS: 36415; 82533

== ENCOUNTER → 2025-07-11 10:38 | Outpatient (CLI) | payer MEDICARE, MEDICAID, SELFPAY ==
[2024-07-20 19:55] VITALS: BMI 38.2
--- NOTE | 2025-07-11 10:41 | DI.MRI.S_ITS ---
PROCEDURE: MR HEAD/BRAIN WO/W CON INDICATIONS: hallucinations, please evaluate for tumor TECHNIQUE: Noncontrast axial T1 spin echo, axial T2 fast spin echo, sagittal and axial FLAIR, coronal T2 fast spin echo, axial gradient echo, axial diffusion and ADC through the brain. After the administration of contrast, axial and coronal and sagittal T1 spin echo with fat saturation through the brain. COMPARISON: [facility], MR, MR BRAIN WITHOUT CONTRAST, 01/04/2021, 14:33. [facility], CT, CT HEAD/BRAIN WO CON, 07/20/2024, 16:17. (Additional prior imaging is not available for review from the archive at the time of this dictation.) FINDINGS: Image quality: This examination is limited by involuntary motion artifact. CSF spaces: Basal cisterns are patent. No extra-axial fluid collections. Ventricles are normal in size and shape. Brain: No midline shift. No intracranial bleeds or masses. No abnormal intracranial enhancement. There is cerebral volume loss for age. There is periventricular white matter chronic small vessel ischemic change. The brainstem appears normal. Diffusion-weighted images demonstrate no acute infarct. No chronic ischemic insults. Normal intravascular flow voids are present. Skull and face: Calvarial marrow is normal in signal. Orbits appear normal. Note is made of bilateral lens replacements. Sinuses: Sinuses and mastoids appear clear. IMPRESSION: No masses or abnormal enhancement can be seen. Dictated by: Alfredo Rea M.D. on 07/11/2025 at 11:35 Approved by: Alfredo Rea M.D. on 07/11/2025 at 11:39
== END ==
PROVIDERS: PCP Nurse Practitioner Family; Referring Provider Registered Nurse; Visit Provider Registered Nurse
DX: R44.3 Hallucinations, unspecified (principal); F68.8 Other specified disorders of adult personality and behavior
CPT/HCPCS: 70553; A9579

== ENCOUNTER 2025-08-10 12:47 | Emergency (ER) | payer MEDICARE, MEDICAID, SELFPAY ==
[2024-07-20 19:55] VITALS: BMI 38.2
--- NOTE | 2025-08-10 12:49 | ED.ABDPAIN ---
HPI - Abdominal Pain General Chief Complaint: Shortness of Breath/Dyspnea Stated Complaint: Vaginal Bleeding History of Present Illness HPI narrative: 75-year-old female history of anxiety, PTSD, COPD, hypertension, lichen sclerosis presents with 3 days of vaginal spotting but not soaking more than 1 pad an hour. Patient was on a cream for her lichen sclerosis in the past is no longer on it. She states it is irritating to urinate but is unsure if she has a urinary tract infection. She denies any rectal bleeding, back pain, dizziness, lightheadedness, chest pain, shortness of breath, fever, chills, body aches. Other than what is stated 14 point review of system is negative Related Data Home Medications ?Medication ?Instructions ?Recorded ?Confirmed albuterol sulfate 90 mcg/actuation 0.09 mg IH BID ##0 01/15/12 07/20/24 aerosol inhaler (Proventil HFA) fluticasone propionate 220 1 puff INH Q DAY ##12 08/14/12 07/20/24 mcg/actuation HFA aerosol inhaler (Flovent HFA) colesevelam 625 mg tablet 625 mg PO BID 02/11/24 07/20/24 cyclobenzaprine 10 mg tablet 10 mg PO BID 02/11/24 07/20/24 duloxetine 60 mg capsule,delayed 60 mg PO BID 02/11/24 07/20/24 release lubiprostone 24 mcg capsule 24 mcg PO DAILY 02/11/24 07/20/24 (Amitiza) montelukast 10 mg tablet 10 mg PO DAILY 02/11/24 07/20/24 benzonatate 200 mg capsule 200 mg PO BID PRN Cough 07/08/24 07/20/24 cholecalciferol (vitamin D3) 125 125 mcg PO DAILY 07/08/24 07/20/24 mcg (5,000 unit) tablet (Vitamin D3) cyclosporine 0.05 % eye drops in a 0.05 drp EYE-BOTH BID 07/08/24 07/20/24 dropperette (Restasis) ferrous sulfate 325 mg (65 mg 325 mg PO DAILY 07/08/24 07/20/24 iron) tablet gabapentin 600 mg tablet 600 mg PO TID 07/08/24 07/20/24 ipratropium bromide 21 mcg (0.03 0.06 spray intranasal TID 07/08/24 07/20/24 %) nasal spray tiotropium bromide 2.5 2 inh inhalation QAM 07/08/24 07/20/24 mcg/actuation mist for inhalation (Spiriva Respimat) triamcinolone acetonide 0.1 % 0.5 applic topical BID 07/08/24 07/20/24 topical ointment Previous Rx's ?Medication ?Instructions ?Recorded cefdinir 300 mg capsule 300 mg PO Q12H #20 caps 09/27/24 prednisone 20 mg tablet 20 mg PO DAILY #5 tabs 09/27/24 tiotropium bromide 18 mcg capsule 1 cap inhalation DAILY #90 09/27/24 with inhalation device (Spiriva inhalations with HandiHaler) metoprolol succinate 50 mg 50 mg PO BID #30 tabs 02/04/25 tablet,extended release 24 hr nitrofurantoin 100 mg PO Q12H 5 days #10 caps 08/10/25 monohydrate/macrocrystals 100 mg capsule (Macrobid) polyethylene glycol 3350 17 17 g PO DAILY #238 grams 08/10/25 gram/dose oral powder (Miralax) Allergies Allergy/AdvReac Type Severity Reaction Status Date / Time imipramine (IMIPRAMINE) Allergy Severe throat Verified 08/10/25 13:13 swelling influenza virus vaccine, Allergy Severe arm and Verified 08/10/25 13:13 specific (INFLUENZA VIRUS body VACC,SPECIFIC) swelling pneumococcal vaccine Allergy Severe body Verified 08/10/25 13:13 (PNEUMOCOCCAL VACCINE) swelling eucalyptus (EUCALYPTUS) Allergy Mild Verified 08/10/25 13:13 oxycodone (OXYCODONE) AdvReac Severe panic Verified 08/10/25 13:13 feeling rasagiline (From AZILECT) AdvReac Severe suicidal Verified 08/10/25 13:13 carbidopa (CARBIDOPA) AdvReac Mild nausea & Verified 08/10/25 13:13 vomiting Sulfa (Sulfonamide AdvReac Mild n/v Verified 08/10/25 13:13 Antibiotics) (SULFA (SULFONAMIDE ANTIBIOTICS)) sulfacetamide (SULFACETAMIDE) AdvReac Mild n/v Verified 08/10/25 13:13 TOMATOES Allergy Mild N/V Uncoded 08/10/25 13:13 TORFANIL Allergy Unknown PER PT Uncoded 08/10/25 13:13 Review of Systems Review of Systems ROS Unobtainable: All systems reviewed & are unremarkable except as noted in HPI and below Patient History Social History household members: other alcohol intake: former tobacco type: cigarettes alcohol intake frequency: 0-2 drinks per day Exam Narrative Exam Narrative: GENERAL: [75] year old patient appears stated age. Well-developed patient, in mild distress. HEAD: Atraumatic. Normocephalic. EYES: Pupils equal round and reactive. Extraocular motions intact. No scleral icterus. No injection or drainage. ENT: Nose without bleeding, purulent drainage. Throat without erythema, tonsillar hypertrophy or exudate. Airway patent. NECK: Trachea midline. Non tender CARDIOVASCULAR: Regular rate and rhythm without murmurs, gallops, or rubs. RESPIRATORY: Clear to auscultation. Breath sounds equal bilaterally. No wheezes, rales, or rhonchi. GASTROINTESTINAL: Abdomen soft, non-tender, nondistended. EXTREMITIES: No edema or joint tenderness. BACK: Nontender without deformity or crepitance. No flank tenderness. Rectum: Hemoccult negative NEURO: AOx3. SKIN: No rash or erythema of visible areas Course Orders Ordered: ED Orders 08/10/25 12:48 CT abdomen pelvis w con Stat Complete Blood Count AUTO DIFF Stat Comprehensive Metabolic Panel Stat Lipase Stat Prothrombin Time INR Stat MDM - Abdominal Pain Imaging Data CT scan - abdomen/pelvis: Radiologist's Impression: [place] [address] CT Scan Report Signed Patient: Suze Desai MR#: [id number] : 1950 Acct:[id number] Age/Sex: 75 / F Date of Service: 08/10/25 Loc: ED Accession Number: [id number] Procedure: CT abdomen pelvis w con Ordering Provider: Ruddy Brown D.O. PROCEDURE: CT ABDOMEN PELVIS W CON INDICATIONS: abd pain vag bleed TECHNIQUE: After the administration of intravenous contrast, axial sections acquired from the lung bases to the pubic symphysis. Coronal and sagittal reformats were performed. For radiation dose reduction, the following was used: automated exposure control, adjustment of mA and/or kV according to patient size. COMPARISON: [facility], CT, CT ABDOMEN PELVIS W CON, 02/04/2024, 11:27. FINDINGS: Image quality: Diagnostic. Lower Chest: No significant findings. ABDOMEN: Liver: No solid mass. Hepatic steatosis. Gallbladder: Surgically absent. Biliary ducts: No biliary dilation. Pancreas: No ductal dilation. Spleen: Size is within normal limits. Adrenal Glands: No adrenal nodules. Kidneys and Ureters: No hydronephrosis. No solid mass. No complex renal cystic lesion which requires follow up. Stomach and Bowel: Normal colonic caliber, without significant wall thickening. Prominent stool burden. Normal appendix. Peritoneum: No abnormal intraperitoneal fluid. No free air. Ventral Wall: No significant ventral hernia. Abdominal Nodes: No retroperitoneal or mesenteric adenopathy by size criteria. Vessels: Aorta and inferior vena cava are normal in size. Atherosclerotic vascular calcifications. PELVIS: Pelvic Organs: Unremarkable. Bladder: No bladder wall thickening, accounting for underdistention. Pelvic Nodes: No enlarged lymph nodes. Miscellaneous: No inguinal hernias are seen. Bones: No aggressive osseous abnormality. Mild degenerative changes of the spine. Decreased osseous mineralization. IMPRESSION: 1. No acute findings within the abdomen or pelvis. 2. Prominent stool burden, correlate for constipation. 3. Hepatic steatosis. MDM Narrative Medical decision making narrative: All lab work, vital signs, nurse triage note, medication list, previous ER visits, and all imaging studies reviewed. CT abdomen and pelvis showed no acute findings within the abdomen and pelvis prominent stool burden correlate for constipation hepatic steatosis. WBC 9.8 hemoglobin 14.6 hematocrit 43.6 platelets 299 INR 1.0 sodium 137 potassium 4.8 chloride 103 CO2 27 BUN 11 creatinine 0.77 AST 41 lipase 103. Patient given macrobid and Mag citrate here. Urinalysis did show + leukocytes +blood Discharge Plan Departure Patient Disposition: Home Clinical Impression: Acute UTI Constipation Qualifiers: Constipation type: slow transit constipation Qualified Code(s): K59.01 - Slow transit constipation Instructions: DI for Urinary Tract Infection (UTI) Activity Restrictions/Additional Instructions: Return with new or worsening symptoms. Take your medicines as directed. Keep hydrated. Follow up PCP 1-2 weeks if no improvement in symptoms. Prescriptions: New nitrofurantoin monohyd/m-cryst [Macrobid] 100 mg capsule 100 mg PO Q12H 5 Days Qty: 10 0RF Rx Instructions: must administer with a meal/food polyethylene glycol 3350 [Miralax] 17 gram/dose powder 17 g PO DAILY Qty: 238 0RF No Action albuterol sulfate [Proventil HFA] 90 MCG/PUFF HFA aerosol inhaler 0.09 mg IH BID Qty: 0 fluticasone propionate [Flovent HFA] 12 GM HFA aerosol inhaler 1 puff INH Q DAY Qty: 12 lubiprostone [Amitiza] 24 mcg capsule 24 mcg PO DAILY colesevelam 625 mg tablet 625 mg PO BID cyclobenzaprine 10 mg tablet 10 mg PO BID duloxetine 60 mg capsule,delayed release(DR/EC) 60 mg PO BID montelukast 10 mg tablet 10 mg PO DAILY tiotropium bromide [Spiriva with HandiHaler] 18 mcg capsule, w/inhalation device 1 cap inhalation DAILY Qty: 90 0RF Rx Instructions: puncture 1 cap using device; one dose = 2 inhalations prednisone 20 mg tablet 20 mg PO DAILY Qty: 5 0RF cefdinir 300 mg capsule 300 mg PO Q12H Qty: 20 0RF metoprolol succinate 50 mg tablet extended release 24 hr 50 mg PO BID Qty: 30 0RF benzonatate 200 mg capsule 200 mg PO BID PRN (Reason: Cough) gabapentin 600 mg tablet 600 mg PO TID ferrous sulfate 325 mg (65 mg iron) Tablet 325 mg PO DAILY triamcinolone acetonide 0.1 % ointment 0.5 applic topical BID ipratropium bromide 21 mcg (0.03 %) spray,non-aerosol 0.06 spray intranasal TID cyclosporine [Restasis] 0.05 % Dropperette 0.05 drp EYE-BOTH BID cholecalciferol (vitamin D3) [Vitamin D3] 125 mcg (5,000 unit) Tablet 125 mcg PO DAILY Spiriva Respimat 2.5 mcg/actuation Mist 2 inh INHALATION QAM Referrals: Peggy Alves ARNP [Primary Care Provider, Medical] Stand Alone Forms: Patient Portal/API
[2025-08-10 13:13] VITALS: BP 142/78; PULSE 118; RESP 22; TEMP 36.4; O2SAT 96; BMI 40.7
[2025-08-10 13:20] LABS: Add Manual Diff / Slide Review NO; Hematocrit 43.6 % (36-46); Hemoglobin 14.6 g/dL (12.0-16.0); Lymphocytes Absolute Auto 2100 /uL (1100-4500); Mean Corpuscular HGB Conc 33.5 % (30-36); Mean Corpuscular Hemoglobin 33.5 PG (26-34); Mean Corpuscular Volume 100.0 fL (80-100); Platelet Count 299 X10^3/uL (150-400)
[2025-08-10 13:28] LABS: INR 1.0 (0.9-1.3); Prothrombin Time 11.0 SECONDS (9.4-12.5)
[2025-08-10 13:32] LABS: Alanine Aminotransferase 24 IU/L (<35); Albumin 4.3 g/dL (3.5-5.0); Albumin Globulin Ratio 1.2 (1.0-2.8); Alkaline Phosphatase 78 U/L (38-126); Blood Urea Nitrogen 11 mg/dL (7-17); Calcium 8.8 mg/dL (8.4-10.2); Carbon Dioxide 27 mmol/L (22-32); Chloride 103 mmol/L (98-107); Estimated Glomerular Filt Rate > 60 mL/min (>60); Globulin 3.7 g/dL (1.7-4.1); Glucose 98 mg/dL (70-99); HEMOLYSIS 142 (0-50); Lipase 103 U/L (23-300); Potassium 4.8 mmol/L (3.4-5.1); Sodium 137 mmol/L (137-145); Total Protein 8.0 g/dL (6.3-8.2)
[2025-08-10 14:03] VITALS: PULSE 75; RESP 31; O2SAT 94
[2025-08-10 14:30] VITALS: BP 107/68; PULSE 74; RESP 21; O2SAT 92
[2025-08-10 14:43] VITALS: BP 141/67; PULSE 79; RESP 23; O2SAT 91
[2025-08-10 14:54] VITALS: BP 145/66; PULSE 79; RESP 21; O2SAT 96
[2025-08-10 15:00] VITALS: BP 132/64; PULSE 75; RESP 22; O2SAT 94
--- NOTE | 2025-08-10 15:29 | PC.NURSE ---
patient having cough and tachypnea
[2025-08-10 15:37] LABS: Bilirubin Urine UA NEGATIVE (NEGATIVE); Color Urine UA YELLOW; Glucose Urine UA NEGATIVE (Negative); Ketones Urine UA NEGATIVE (NEGATIVE); Leukocyte Esterase Urine UA 1+ (NEGATIVE); Nitrite Urine UA NEGATIVE (Negative); Occult Blood Urine UA 1+ (Negative); Protein Urine UA NEGATIVE (Negative); Specific Gravity Urine UA 1.010 (1.000-1.035); Urobilinogen Urine UA 0.2 E.U./dL (0.2)
[2025-08-10 15:38] LABS: Appearance Urine UA Cloudy; pH Urine UA 5.0 (4.5-8.0)
[2025-08-10] MEDS: NITROFURANTOIN ER 100 MG CAPSULE PO (15:44)
[2025-08-10] MEDS: MAGNESIUM CITRATE 300 ML SOLUTION 150 ML PO (15:44)
[2025-08-10 16:39] LABS: Culture Indicated Urine Cult Not Indicated
== END 2025-08-10 15:50 | disposition home or self-care (01) ==
PROVIDERS: Emergency Provider Family Medicine; PCP Nurse Practitioner Family
DX: N39.0 Urinary tract infection, site not specified (principal); K59.01 Slow transit constipation
CPT/HCPCS: 74177; 80053; 81001; 81003; 83690; 85025; 85610; 99283; 99284; Q9967

== ENCOUNTER → 2025-10-19 09:54 | Outpatient (ROUT) | payer MEDICARE, MEDICAID, SELFPAY ==
[2024-07-20 19:55] VITALS: BMI 38.2
[2025-10-19 10:14] LABS: Hematocrit 41.2 % (36-46); Hemoglobin 13.6 g/dL (12.0-16.0); Mean Corpuscular HGB Conc 33.0 % (30-36); Mean Corpuscular Hemoglobin 33.2 PG (26-34); Mean Corpuscular Volume 100.5 fL (80-100); Platelet Count 268 X10^3/uL (150-400)
[2025-10-19 10:37] LABS: Alanine Aminotransferase 15 IU/L (<35); Albumin 3.4 g/dL (3.5-5.0); Albumin Globulin Ratio 1.4 (1.0-2.8); Alkaline Phosphatase 79 U/L (38-126); Blood Urea Nitrogen 12 mg/dL (7-17); Calcium 8.7 mg/dL (8.4-10.2); Carbon Dioxide 28 mmol/L (22-32); Chloride 105 mmol/L (98-107); Creatine Kinase 25 U/L (30-135); Estimated Glomerular Filt Rate > 60 mL/min (>60); Globulin 2.5 g/dL (1.7-4.1); Glucose 105 mg/dL (70-99); HEMOLYSIS 15 (0-50); Potassium 4.5 mmol/L (3.4-5.1); Sodium 138 mmol/L (137-145); Total Protein 5.9 g/dL (6.3-8.2)
== END ==
LOC: LAB 09:56
PROVIDERS: PCP Nurse Practitioner Family; Visit Provider Registered Nurse
DX: R70.0 Elevated erythrocyte sedimentation rate (principal); R79.82 Elevated C-reactive protein (CRP); R76.0 Raised antibody titer
CPT/HCPCS: 36415; 80053; 82550; 85027; 85651; 86038; 86140; 86200